=== PATIENT | female | born 1955 | race Caucasian/White ===

== ENCOUNTER → 2020-05-18 13:47 | Outpatient (BNVA) | payer MEDICARE, OTHER, SELFPAY | PROVIDERS: PCP Internal Medicine; Visit Provider Internal Medicine | DX: J30.9 Allergic rhinitis, unspecified (principal); J44.9 Chronic obstructive pulmonary disease, unspecified | CPT/HCPCS: 99212 ==

== ENCOUNTER → 2020-11-21 12:57 | Outpatient (BNVA) | payer MEDICARE, OTHER, SELFPAY | PROVIDERS: PCP Physician Assistant; Visit Provider Internal Medicine | DX: J45.909 Unspecified asthma, uncomplicated (principal) | CPT/HCPCS: 99212 ==

== ENCOUNTER → 2021-05-24 13:09 | Outpatient (BNVA) | payer MEDICARE, OTHER, SELFPAY | PROVIDERS: PCP Internal Medicine; Visit Provider Internal Medicine | DX: J45.909 Unspecified asthma, uncomplicated (principal) | CPT/HCPCS: 94010; 99212 ==

== ENCOUNTER 2021-09-28 15:56 | Emergency (ER) | payer MEDICARE, OTHER, SELFPAY ==
--- NOTE | ~2021-09-28 | XR_ITS ---
EXAMINATION: XR CHEST CLINICAL INFORMATION: Chest pain. COMPARISON: 03/24/2018 chest radiograph. TECHNIQUE: Frontal view of the chest was obtained. FINDINGS: No significant abnormality is noted involving the heart, lungs, mediastinum, bony thorax or soft tissues. XR/XR chest 1V IMPRESSION: No acute cardiopulmonary process.
[2021-09-28 16:02] VITALS: BP 167/105; PULSE 94; RESP 20; TEMP 36.6; O2SAT 98; BMI 24.9
--- NOTE | 2021-09-28 16:04 | ECG_ITS ---
Test Reason : cp/upper abdminal pain Blood Pressure : / mmHG Vent. Rate : 095 BPM Atrial Rate : 095 BPM P-R Int : 178 ms QRS Dur : 088 ms QT Int : 354 ms P-R-T Axes : 056 033 030 degrees QTc Int : 444 ms Normal sinus rhythm Possible Left atrial enlargement Nonspecific ST abnormality Abnormal ECG When compared with ECG of 24-MAR-2018 17:07, No significant change was found Referred By: Generic ED Physician Electronically Signed By:ALEJA SALEH MD
[2021-09-28 16:17] LABS: Hematocrit 41.8 % (37.0-47.0); Hemoglobin 14.4 g/dl (12.0-16.0); Mean Corpuscular HGB Conc 34.4 g/dl (31.0-35.0); Mean Corpuscular Hemoglobin 30.1 pg (27.0-33.0); Mean Corpuscular Volume 87.4 fL (80.0-98.0); Mean Platelet Volume 9.8 fL (9.4-12.3); Platelet Count 309 X10*3/uL (160-400); Red Blood Count 4.78 X10*6/uL (4.20-5.50); Red Cell Distribution Width 12.7 % (11.0-16.0); White Blood Count 8.6 X10*3/uL (4.8-10.8)
[2021-09-28 16:34] LABS: COVID-19 Test Negative (Negative)
[2021-09-28 16:37] LABS: Anion Gap 17 (12-20); Blood Urea Nitrogen 11 mg/dL (9-16); Calcium 9.5 mg/dL (8.4-10.2); Carbon Dioxide 25 mmol/L (22-29); Chloride 96 mmol/L (96-108); Creatinine Clr Calc Pharmacy 73.8; Estimated Glomerular Filt Rate > 60; Glucose Random 116 mg/dL (60-115); Potassium 3.8 mmol/L (3.3-5.1); Sodium 134 mmol/L (135-145)
[2021-09-28 16:40] LABS: Troponin-I High Sensitivity 549.6 ng/L (<3.5-17.0)
--- NOTE | 2021-09-28 16:54 | ED.GENADULT ---
HPI - General Adult General Chief complaint: Chest Pain Stated complaint: back/neck pain Time Seen by Provider: 09/28/21 16:43 Source: patient Limitations: no limitations History of Present Illness HPI narrative: This is a 65-year-old female with history of hypertension who had been [place] [employer], was driving home, did not feel well had onset of substernal chest pain with pain also on the left side of her neck, left shoulder left upper arm. The patient did have nausea and sweats associated with. She denies shortness of breath. She went home and noted that her blood pressure was elevated, and decided to come to the ED. she does have a family history of coronary artery disease. She denies hypercholesterolemia, tobacco use, diabetes Related Data Home Medications Medication Instructions Recorded Confirmed albuterol sulfate 90 mcg/actuation 2 puff INHALATION Q6H PRN 05/18/20 aerosol inhaler betamethasone dipropionate 0.05 % appl TOPICAL BID 11/21/20 topical cream clonazepam 0.5 mg tablet 0.5 mg PO DAILY PRN 11/21/20 cyclosporine 0.05 % eye drops in a 1 drp OPHTHALMIC (EYE) BID 11/21/20 dropperette hydrochlorothiazide 25 mg tablet 25 mg PO DAILY 11/21/20 levothyroxine 88 mcg tablet 88 mcg PO DAILY 11/21/20 losartan 50 mg tablet 50 mg PO DAILY 11/21/20 venlafaxine 150 mg 300 mg PO DAILY 11/21/20 capsule,extended release 24 hr fluticasone propionate 50 spray INTRANASAL 05/24/21 mcg/actuation nasal spray,suspension meloxicam 15 mg tablet 15 mg PO DAILY 05/24/21 omeprazole 20 mg capsule,delayed 20 mg PO DAILY 05/24/21 release Previous Rx's Medication Instructions Recorded Symbicort 80 mcg-4.5 mcg/actuation 2 puff PO BID #10.2 g NS 05/22/21 HFA aerosol inhaler (budesonide-formoterol) Allergies Allergy/AdvReac Type Severity Reaction Status Date / Time amoxicillin [Augmentin] Allergy Severe Vomitting Verified 05/24/21 13:21 clavulanic acid [Augmentin] Allergy Severe Vomitting Verified 05/24/21 13:21 Sulfa (Sulfonamide Allergy Intermediate HIVES Verified 05/24/21 13:21 Antibiotics) [SULFA (SULFONAMIDE ANTIBIOTICS)] Review of Systems Review of Systems: Yes all other systems are reviewed and are negative Constitutional: Constitutional: Reports as per HPI and Denies fever(s) Comments: Sweats Eyes: Eyes: Reports as per HPI and Reports no additional eye complaints ENT: Reports system reviewed and no additional complaints, except as documented, Reports as per HPI, Denies nasal congestion, Denies nasal discharge and Denies sore throat Cardiovascular: Cardiovascular: Reports as per HPI, Reports chest pain and Denies dyspnea Respiratory: Respiratory: Reports as per HPI, Denies cough and Denies dyspnea Gastrointestinal: Gastrointestinal: Reports as per HPI, Denies abdominal pain, Denies diarrhea, Reports nausea and Denies vomiting Genitourinary: Genitourinary: Reports as per HPI, Denies hematuria, Denies urinary frequency and Denies dysuria Musculoskeletal: Musculoskeletal: Reports no additional musculoskeletal complaints and Denies numbness Comments: Neck, left shoulder, left upper arm pain Integumentary/Breasts: Skin/Breast: Reports as per HPI and Denies rash Neurologic: Reports as per HPI, Denies focal weakness and Denies numbness Psychiatric: Psychiatric: Reports no additional psychiatric complaints and Reports as per HPI Endocrine: Endocrine: Reports no additional endocrine complaints and Reports as per HPI Hematologic/Lymphatic: Hematologic/Lymphatic: Reports no additional hematologic/lymphatic complaints, Reports as per HPI and Reports other (No peripheral edema) [facility] Past Medical History Medical History Allergic rhinitis Asthma COPD (chronic obstructive pulmonary disease) Social History Social History Advance Directives: No Advance Directives Information Provided: No Physical Exam ED Vital Signs: Vital Signs - 24 hr 09/28/21 16:02 09/28/21 16:59 09/28/21 17:14 Temperature 97.8 F Pulse Rate 94 97 94 Respiratory Rate 20 14 Blood Pressure 167/105 H 157/86 H 157/86 H Pulse Oximetry 98 97 09/28/21 17:24 09/28/21 17:36 Temperature Pulse Rate 96 90 Respiratory Rate 18 Blood Pressure 134/85 150/87 H Pulse Oximetry 96 BMI result Body Mass Index 24.9 Medical Decision Making MDM Narrative Medical decision making narrative: Patient with chest pain radiating to her left neck, shoulder, upper arm, with associated nausea and sweats, and overall feeling unwell. EKG showed concerning findings consistent with acute coronary syndrome. Initial troponin was positive at 549. Patient was treated with aspirin, Plavix, heparin bolus, nitroglycerin sublingual. The patient had relief of her pain almost dysuria before the nitroglycerin. Patient is being started on low-dose nitroglycerin drip and will be transferred [facility]. Case was discussed with Dr. Augustine of cardiology at [facility] to recommended transfer to the CCU for repeat evaluation. Patient was not felt to meet STEMI criteria but will need cardiac catheterization. Critical care time for this life-threatening illness exclusive of all other billable procedures was approximately 35 minutes including initial evaluation of the patient, ordering tests, x-ray interpretation, EKG interpretation, medical consultation, documentation, reevaluation. Lab Data Lab results reviewed: Yes I reviewed the patient's lab results. Result diagrams: 09/28/21 16:11 09/28/21 16:11 Labs: Lab Results 09/28/21 09/28/21 09/28/21 Range/Units 16:11 16:11 16:11 WBC 8.6 (4.8-10.8) X10*3/uL RBC 4.78 (4.20-5.50) X10*6/uL Hgb 14.4 (12.0-16.0) g/dl Hct 41.8 (37.0-47.0) % MCV 87.4 (80.0-98.0) fL MCH 30.1 (27.0-33.0) pg MCHC 34.4 (31.0-35.0) g/dl RDW 12.7 (11.0-16.0) % Plt Count 309 (160-400) X10*3/uL MPV 9.8 (9.4-12.3) fL Absolute Nucleated RBC 0.000 (0.0-0.012) X10*3/uL Nucleated RBC % (auto) 0.0 (0.0-0.2) /100WBC Sodium 134 L (135-145) mmol/L Potassium 3.8 (3.3-5.1) mmol/L Chloride 96 (96-108) mmol/L Carbon Dioxide 25 (22-29) mmol/L Anion Gap 17 (12-20) BUN 11 (9-16) mg/dL Creatinine 0.70 (0.5-1.4) mg/dL Estim Creat Clear Calc 73.8 Estimated GFR > 60 Random Glucose 116 H (60-115) mg/dL Calcium 9.5 (8.4-10.2) mg/dL Troponin I High Sens 549.6 H* (<3.5-17.0) ng/L COVID-19 (NANCY) (Negative) COVID-19 [employer] 09/28/21 Range/Units 16:12 WBC (4.8-10.8) X10*3/uL RBC (4.20-5.50) X10*6/uL Hgb (12.0-16.0) g/dl Hct (37.0-47.0) % MCV (80.0-98.0) fL MCH (27.0-33.0) pg MCHC (31.0-35.0) g/dl RDW (11.0-16.0) % Plt Count (160-400) X10*3/uL MPV (9.4-12.3) fL Absolute Nucleated RBC (0.0-0.012) X10*3/uL Nucleated RBC % (auto) (0.0-0.2) /100WBC Sodium (135-145) mmol/L Potassium (3.3-5.1) mmol/L Chloride (96-108) mmol/L Carbon Dioxide (22-29) mmol/L Anion Gap (12-20) BUN (9-16) mg/dL Creatinine (0.5-1.4) mg/dL Estim Creat Clear Calc Estimated GFR Random Glucose (60-115) mg/dL Calcium (8.4-10.2) mg/dL Troponin I High Sens (<3.5-17.0) ng/L COVID-19 (NANCY) Negative (Negative) COVID-19 Clin Com See Note Imaging Data Chest x-ray: Radiologist's impression: FINDINGS: No significant abnormality is noted involving the heart, lungs, mediastinum, bony thorax or soft tissues. ECG Data Attestation: I personally reviewed and interpreted this ECG as follows: Interpretation: Sinus rhythm with a rate of 95. ST elevation in lead AVR and V1. ST depression in lead V5 V6 to 3 in AVF. Normal QRS axis. No ectopy. Discharge Plan Discharge Clinical Impression: ACS (acute coronary syndrome), Acute non-ST elevation myocardial infarction (NSTEMI) Patient Disposition: Xfer Acute Care Hospital Transfer Details: [facility] CCU Prescriptions: No Action budesonide-formoterol [Symbicort] 80-4.5 mcg/actuation HFA aerosol inhaler 2 puff PO BID Qty: 10.2 3RF albuterol sulfate 90 mcg/actuation HFA aerosol inhaler 2 puff inhalation Q6H PRN0RF venlafaxine 150 mg capsule,extended release 24hr 300 mg PO DAILY 0RF clonazepam 0.5 mg tablet 0.5 mg PO DAILY PRN (Reason: anxiety) 0RF hydrochlorothiazide 25 mg tablet 25 mg PO DAILY 0RF levothyroxine 88 mcg tablet 88 mcg PO DAILY 0RF losartan 50 mg tablet 50 mg PO DAILY 0RF betamethasone dipropionate 0.05 % cream topical BID 0RF Restasis 0.05 % dropperette 1 drp ophthalmic (eye) BID 0RF meloxicam 15 mg tablet 15 mg PO DAILY 0RF omeprazole 20 mg capsule,delayed release(DR/EC) 20 mg PO DAILY 0RF fluticasone propionate 50 mcg/actuation spray,suspension intranasal 0RF
[2021-09-28] MEDS: Aspirin 81 MG TAB.CHEW 324 MG PO (16:58)
[2021-09-28] MEDS: Heparin Sodium,Porcine 5,000 UNIT/ML VIAL 4000 UNIT IVPUSH (16:58)
[2021-09-28] MEDS: Clopidogrel Bisulfate 300 MG TABLET 600 MG PO (16:58)
[2021-09-28] MEDS: Metoprolol Tartrate 25 MG TABLET PO (16:58)
[2021-09-28 16:59] VITALS: BP 157/86; PULSE 97; RESP 14; O2SAT 97
[2021-09-28] MEDS: 0.9 % Sodium Chloride 500 ML 999 ML IV (16:59)
[2021-09-28 17:14] VITALS: BP 157/86; PULSE 94
[2021-09-28] MEDS: Nitroglycerin 0.4 MG TAB.SUBL SUBLINGUAL (17:14)
[2021-09-28 17:24] VITALS: BP 134/85; PULSE 96; RESP 18; O2SAT 96
[2021-09-28 17:36] VITALS: BP 150/87; PULSE 90
[2021-09-28] MEDS: Nitroglycerin/D5W 100 MG/250 ML INFUS..BTL IVCONT (17:36)
--- NOTE | 2021-09-28 17:43 | PC.NURSE ---
report given to new at [facility]
[2021-09-28 18:09] LABS: INTERNATIONAL NORM RATIO 1.2 (0.9-1.1); Prothrombin Time 13.8 SEC (9.9-13.0)
[2021-09-28 18:26] VITALS: BP 133/70; PULSE 68; RESP 14; O2SAT 98
[2021-09-28 18:31] LABS: Partial Thromboplastin Time > 200.0 SEC (24.1-38.0)
== END 2021-09-28 18:35 | disposition short-term general hospital (02) ==
PROVIDERS: Emergency Provider Emergency Medicine; PCP Internal Medicine
DX: I21.4 Non-ST elevation (NSTEMI) myocardial infarction (principal); I24.9 Acute ischemic heart disease, unspecified; I10 Essential (primary) hypertension; J44.9 Chronic obstructive pulmonary disease, unspecified; Z20.822 Contact with and (suspected) exposure to COVID-19
CPT/HCPCS: 36415; 71045; 80048; 84484; 85027; 85610; 85730; 87635; 93005; 96365; 96375; 99285

== ENCOUNTER → 2021-11-23 13:16 | Outpatient (BNVA) | payer MEDICARE, OTHER, SELFPAY | PROVIDERS: PCP Internal Medicine; Visit Provider Internal Medicine | DX: J44.9 Chronic obstructive pulmonary disease, unspecified (principal); J45.909 Unspecified asthma, uncomplicated | CPT/HCPCS: 99212 ==

== ENCOUNTER → 2022-05-22 13:35 | Outpatient (BNVA) | payer MEDICARE, OTHER, SELFPAY | PROVIDERS: PCP Nurse Practitioner; Visit Provider Internal Medicine | DX: J44.9 Chronic obstructive pulmonary disease, unspecified (principal); J45.909 Unspecified asthma, uncomplicated; J30.9 Allergic rhinitis, unspecified | CPT/HCPCS: 99212 ==

== ENCOUNTER 2022-11-22 13:31 | Outpatient (AMB) | payer MEDICARE, OTHER, SELFPAY ==
[2022-11-22 13:46] VITALS: BP 128/70; PULSE 84; O2SAT 97; BMI 24.6
--- NOTE | 2022-11-22 13:46 | MHC.OFFVIS ---
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 Allergies amoxicillin [Augmentin] Allergy (Severe, Verified 11/22/22 13:50) Vomitting clavulanic acid [Augmentin] Allergy (Severe, Verified 11/22/22 13:50) Vomitting Sulfa (Sulfonamide Antibiotics) [SULFA (SULFONAMIDE ANTIBIOTICS)] Allergy (Intermediate, Verified 11/22/22 13:50) HIVES Medication List - Last Reconciled 11/22/22 by Ana Fernández MD albuterol sulfate 90 mcg/actuation 2 puffs inhalation Q6H PRN alendronate 70 mg PO QWEEK betamethasone dipropionate 0.05% appl topical BID carvedilol 6.25 mg PO BID clonazepam 0.5 mg PO DAILY PRN cyclosporine 0.05% 1 drp ophthalmic (eye) BID fluticasone propionate 50 mcg/actuation sprays intranasal levothyroxine 88 mcg PO DAILY losartan 50 mg PO DAILY meloxicam 15 mg PO DAILY omeprazole 20 mg PO DAILY Symbicort 80-4.5 mcg/actuation (budesonide-formoterol) 2 puffs PO BID 90 days NS venlafaxine ER 300 mg PO DAILY Do you need a note to return to daycare/school/sports/work: No HPI Asthma follow-up HPI Details 67 YEARS OLD VERY PLEASANT FEMALE IS HERE FOR 6 MONTHS FOLLOW-UP FOR HER BRONCHIAL. ASTHMA AND ALLERGIC RHINITIS OVERALL HAS BEEN VERY WELL AND STABLE EXCEPT FOR MILD INCREASE IN NASAL CONGESTION AND POSTNASAL DISCHARGE, RELATED TO HEART WEATHER AND ALSO OUTSIDE ALLERGIES. SHE HAS VERY. LITTLE COUGH OR WHEEZING STATES THAT HER PEAK FLOWS OF OR USUALLY IN THE YELLOW RANGE. SHE REMAINS VERY ACTIVE AND DENIES ANY SHORTNESS OF BREATH ON EXERTION. [facility] Medical History Allergic rhinitis Asthma COPD (chronic obstructive pulmonary disease) Social History Patient Tobacco Use Status: Former Tobacco user Years Smoked: 5 Review of Systems Const All systems reviewed & are unremarkable except as noted in HPI and below Eyes Reports no additional complaints ENT Reports nasal congestion (Only mild intermittent) Card Denies chest pain, Denies irregular heart rhythm and Denies leg edema Resp Reports as per HPI GI Reports heartburn (Sent GERD) Reports no additional complaints Musc Reports no additional complaints Skin/Breast Reports system reviewed and no additional complaints, except as documented Neuro Reports no additional complaints Psych Reports no additional complaints Physical Exam Vital Signs: Last Vital Signs Pulse 84 11/22/22 13:46 BP 128/70 11/22/22 13:46 Pulse Ox 97 11/22/22 13:46 Oxygen Delivery Method Room Air 11/22/22 13:46 BMI result Body Mass Index 24.6 Const General: healthy appearing and comfortable Orientation/consciousness: patient oriented x3 HEENT Head: Yes normal to inspection General nose exam: No nasal polyps present and No nasal discharge present Face and sinus: Yes sinuses nontender Mouth: oropharynx normal Throat: Yes posterior oropharynx normal Eyes General: appearance normal, both eyes and all related structures Neck Neck: Yes normal visual inspection, Yes no lymphadenopathy, Yes trachea midline and Yes no JVD Thyroid: Thyroid normal Chest Chest palpation & inspection: normal inspection of the chest, normal palpation of entire chest wall and no tenderness Resp Other: Percussion note resonant, has good and equal breath sounds on both sides. No wheezes or rhonchi. Cardio Palpation: normal PMI Rate: regular rate Rhythm: regular rhythm Heart sounds: no gallops and no murmurs Peripheral pulses: Peripheral pulses 2+ throughout GI Palpation (GI): Soft to palpation, nontender, No hepatosplenomegaly present and no masses Auscultation: normal bowel sounds Back/Spine/Pelvis Thoracic/Lumbar Spine: thoracic and lumbar spine normal to inspection Skin General skin exam: no rashes or lesions noted Neuro General: patient oriented x3 and no focal motor deficits Cranial nerves: Yes CN's II-XII intact bilaterally Extrem General: Yes normal to inspection, Yes no clubbing, cyanosis or edema and Yes no calf tenderness Psych Appearance: grossly normal and well kempt Speech and movement: Normal speech and movement present Results Reviewed Results Reviewed: PEAK FLOW IS 200 L. Assessment & Plan Assessment & Plan (1) Asthma: Comment: MILD INTERMITTENT , WELL CONTROLLED. TX CONT. SYMBICORT 80/4.5 2 PUFFS BID. USE REGULARLY AND ALBUTEROL HFA 2 PUFFS Q4-6 HRS PRN WHEN OUTDOORS CHECK PEAK FLOWS AT LEAST TWICE A WEAK , IF PEAK FLOW READING REMAINS BELOW 200, MAY INCREASE SYMBICORT TO 160/4.5 2 PUFFS BID . Code(s): J45.909 - Unspecified asthma, uncomplicated (2) COPD (chronic obstructive pulmonary disease): Comment: PATIENT DOES HAVE MILD TO MODERATE DEGREE OF CHRONIC OBSTRUCTIVE AIRWAY DISORDER/ ASTHMA, AND IT REMAINS WELL CONTROLLED. TX: NOTED UNDER ASTHMA. Code(s): J44.9 - Chronic obstructive pulmonary disease, unspecified (3) Allergic rhinitis: Comment: Very Well Controlled AT THIS TIME. NO MEDS NEEDED. MAY USE FLONASE NASAL SPRAY , ONLY PRN . Code(s): J30.9 - Allergic rhinitis, unspecified Coding Level of Care Code Est Pt Level 3 (36973) Diagnoses Asthma J45.909 COPD (chronic obstructive pulmonary disease) J44.9 Allergic rhinitis J30.9
== END 2022-11-22 14:02 | disposition home or self-care (01) ==
PROVIDERS: PCP Nurse Practitioner; Visit Provider Internal Medicine
DX: J45.909 Unspecified asthma, uncomplicated (principal)
CPT/HCPCS: 99213

== ENCOUNTER → 2022-11-22 13:31 | Outpatient (BNVA) | payer MEDICARE, OTHER, SELFPAY | PROVIDERS: PCP Nurse Practitioner; Visit Provider Internal Medicine | DX: J44.9 Chronic obstructive pulmonary disease, unspecified (principal); J45.20 Mild intermittent asthma, uncomplicated; Z87.891 Personal history of nicotine dependence | CPT/HCPCS: 99212 ==

== ENCOUNTER 2023-05-13 08:47 | Outpatient (AMB) | payer MEDICARE, OTHER, SELFPAY ==
[2023-05-13 08:54] VITALS: BP 140/74; PULSE 74; BMI 23.5
--- NOTE | 2023-05-13 08:54 | MHC.OFFVIS ---
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 Allergies amoxicillin [Augmentin] Allergy (Severe, Verified 11/22/22 13:50) Vomitting clavulanic acid [Augmentin] Allergy (Severe, Verified 11/22/22 13:50) Vomitting Sulfa (Sulfonamide Antibiotics) [SULFA (SULFONAMIDE ANTIBIOTICS)] Allergy (Intermediate, Verified 11/22/22 13:50) HIVES Medication List - Last Reconciled 05/13/23 by Remigio Whitfield MD albuterol sulfate 90 mcg/actuation 2 puffs inhalation Q6H PRN alendronate 70 mg PO QWEEK betamethasone dipropionate 0.05% appl topical BID carvedilol 25 mg PO BID levothyroxine 88 mcg PO DAILY losartan 100 mg PO DAILY omeprazole 20 mg PO DAILY spironolactone 25 mg PO DAILY Symbicort 80-4.5 mcg/actuation (budesonide-formoterol) 2 puffs PO BID 90 days NS venlafaxine ER 300 mg PO DAILY HPI HPI Comments History of Present Illness Details Thank you for referring Estefania in cardiology consultation today for management of suspected stress-induced cardiomyopathy AKA takotsubo cardiomyopathy. Last September while she was at the [facility] she got very stressed because of the environment and that while she was driving back she started experiencing symptoms of left chest discomfort radiating to not left arm and felt anxious and stressed and came to the emergency room. In the [facility] was noted to have diffuse mild ST changes and 1st troponin of about 550. She was then started on nitro drip and was transferred to [facility] for acute cardiac catheterization. She underwent cardiac catheterization on 09/29/2021 with normal coronary arteries with normal LV filling pressures, echocardiogram showing regional wall motion abnormality although not in a typical pattern with depressed LV ejection fraction. She says subsequently she was released home without much information. She has not had any recurrent symptoms. She continues to exercise and maintain active lifestyle. She is longstanding history of hypertension and has been treated with multiple medications. She is currently on carvedilol, losartan and spironolactone. Generally blood pressure is well controlled. She says her last LDL was 104 mg/dL. She is concerned about her cardiovascular risk given her father's history of premature coronary artery disease. [facility] Medical History HTN (hypertension) Asthma COPD (chronic obstructive pulmonary disease) Allergic rhinitis Social History Patient Tobacco Use Status: Former Tobacco user Years Smoked: 5 Review of Systems Const Denies chills, Denies daytime sleepiness, Denies fatigue, Denies fever(s), Denies frequent falls, Denies poor appetite, Denies snoring, Denies stops breathing during sleep, Denies weakness, Denies weight gain and Denies weight loss Eyes Denies loss of vision ENT Denies dizziness and Denies hearing loss Card Denies chest pain, Denies claudication, Denies leg edema, Denies lightheadedness, Denies palpitations, Denies dyspnea, Denies dyspnea on exertion and Denies orthopnea Resp Denies cough, Denies excessive phlegm production, Denies dyspnea, Denies dyspnea on exertion, Denies snoring and Denies wheezing GI Denies abdominal pain, Denies hematochezia, Denies change in bowel habits, Denies nausea and Denies vomiting Denies urinary frequency and Denies dysuria Musc Denies arthralgias, Denies muscle weakness, Denies numbness and Denies other (frequent falls) Skin/Breast Denies nail changes and Denies rash Neuro Denies Abnormal speech present, Denies dizziness, Denies frequent falls, Denies loss of vision, Denies memory loss, Denies numbness and Denies weakness Psych Denies depression and Denies memory loss Endo Denies fatigue and Denies palpitations Carlos/Lymph Reports easy bruising and Reports other (anemia) Aller/Immun Denies wheezing Physical Exam Vital Signs: Last Vital Signs Pulse 74 05/13/23 08:54 BP 140/74 H 05/13/23 08:54 BMI result Body Mass Index 23.5 Const General: cooperative, comfortable, no acute distress, well developed, alert, awake, Physically active, anxious and well groomed Nutritional Appearance: average body habitus and well nourished Orientation/consciousness: patient oriented x3 Limitations: no limitations HEENT Head: Yes normocephalic and Yes atraumatic Neck Neck: Yes trachea midline, Yes supple and Yes no JVD Resp Effort & Inspection: normal respiratory effort Auscultation: clear to auscultation bilaterally Cardio Jugular venous distension: no JVD Palpation: normal PMI Rate: regular rate Rhythm: regular rhythm Heart sounds: S1 normal heart sound present, S2 normal heart sound present, no click, no gallops, no murmurs and no rubs GI Auscultation: normal bowel sounds Skin General skin exam: no rashes or lesions noted Neuro General: patient oriented x3 and no focal motor deficits Speech: No Abnormal speech present Extrem General: Yes no clubbing, cyanosis or edema Office Procedures EKG Details: EKG shows normal sinus rhythm with normal EKG [id number], Complete Assessment & Plan Assessment & Plan (1) Takotsubo cardiomyopathy: Comment: September 2021 patient present with symptoms consistent with acute coronary syndrome and subsequently underwent a cardiac catheterization which showed normal coronary, echocardiogram showing regional wall motion abnormality in the pattern of stress-induced cardiomyopathy Code(s): I51.81 - Takotsubo syndrome Plan: Patient with syndrome consistent with stress-induced cardiomyopathy AK takotsubo cardiomyopathy although repeat echocardiogram to evaluate for resolution of LV systolic dysfunction was not performed to confirm the diagnosis completely. Will schedule an echocardiogram near future to assess for the same. If LV systolic function has completely normalized this would confirmed a diagnose of stress-induced cardiomyopathy. Discussed with her about usually good prognosis associated with stress-induced cardiomyopathy. Pathophysiology and mechanism of development of stress-induced cardiomyopathy was discussed. We discussed about aggressively pursuing stress mitigation strategies. Participating some behavior modification was discussed with her. She understands agrees. She is on both carvedilol losartan which have shown to reduce recurrence of stress-induced cardiomyopathy and continue the same. Further risk of recurrence was discussed. She understands it well. (2) HTN (hypertension): Code(s): I10 - Essential (primary) hypertension Plan: Longstanding hypertension which is currently well optimized. Advise to continue current therapy. Importance of good blood pressure control was discussed. Low-salt diet was discussed. Continue current therapy. Target goal blood pressure less than 130/84. She is currently participate in regular physical activity encouraged her to continue to do so. Target goal LDL less than 100 mg/dL as per ASCOT trial. Will follow up in the clinic in 1 year's time, sooner p.r.n.. Thank you for allowing me to partake in the care Coding Level of Care Code New Pt Level 4 (65068) Diagnoses Takotsubo cardiomyopathy I51.81 HTN (hypertension) I10 CPT Codes EKG - CPT: [id number], Complete ([id number])
== END 2023-05-13 09:23 | disposition home or self-care (01) ==
PROVIDERS: PCP Nurse Practitioner; Visit Provider Internal Medicine Cardiovascular Disease
DX: I51.81 Takotsubo syndrome (principal); I10 Essential (primary) hypertension
CPT/HCPCS: 93010; 99214

== ENCOUNTER → 2023-05-13 08:47 | Outpatient (BNVA) | payer MEDICARE, OTHER, SELFPAY | PROVIDERS: PCP Nurse Practitioner; Visit Provider Internal Medicine Cardiovascular Disease | DX: I51.81 Takotsubo syndrome (principal); I10 Essential (primary) hypertension | CPT/HCPCS: 93005; 99212 ==

== ENCOUNTER 2023-07-22 10:18 | Outpatient (AMB) | payer MEDICARE, OTHER, SELFPAY ==
[2023-07-22 10:22] VITALS: BP 102/60; PULSE 76; O2SAT 98; BMI 24.0
--- NOTE | 2023-07-22 10:22 | A.OFFVIS_ITS ---
Intake Vital Signs 07/22/23 10:22 Height 5 ft 4 in Weight 139 lb 15.896 oz BMI 24.0 BP 102/60 Blood Pressure Location Lt brachial Position Sitting Pulse 76 Pulse Source Pulse Oximeter Pulse Oximetry (%) 98 Oxygen Delivery Method Room Air Intake Visit Reasons: Asthma follow-up Intake Note: pt is here for follow up and is now on Dupixent monthly dby Derm. she is not seen much difference with breathing but it is helping her skin. 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: No Allergies amoxicillin [Augmentin] Allergy (Severe, Verified 07/22/23 10:36) Vomitting clavulanic acid [Augmentin] Allergy (Severe, Verified 07/22/23 10:36) Vomitting Sulfa (Sulfonamide Antibiotics) [SULFA (SULFONAMIDE ANTIBIOTICS)] Allergy (Intermediate, Verified 07/22/23 10:36) HIVES Medication List - Last Reconciled 07/22/23 by Ana Fernández MD albuterol sulfate 90 mcg/actuation 2 puffs inhalation Q6H PRN alendronate 70 mg PO QWEEK betamethasone dipropionate 0.05% appl topical BID carvedilol 25 mg PO BID dupilumab (Dupixent) 300 mg subcut Q4W fluticasone furoate-vilanterol 100-25 mcg/dose (Breo Ellipta) 1 inh inhalation DAILY 30 days levothyroxine 88 mcg PO DAILY losartan 100 mg PO DAILY omeprazole 20 mg PO DAILY spironolactone 25 mg PO DAILY venlafaxine ER 300 mg PO DAILY Do you need a note to return to daycare/school/sports/work: No HPI Asthma follow-up HPI Details 67 YEARS OLD VERY PLEASANT FEMALE IS HER E FOR 6 MONTHS FOLLOW-UP FOR HER BRONCHIAL ASTHMA. SYMBICORT WAS SWITCHED TO BREO-100-25 1 INHALATION DAILY. IT SHOULD BE NOTED THAT SHE IS ALSO ON DUPIXENT FOR TREATMENT OF HER SKIN CONDITION. A BREATHING HAS BEEN GOOD WITHOUT ANY ACUTE EXACERBATION. SOME DAYS SHE TRIES TO GO WITHOUT USING BREO AND DOES WELL. SHE HAS ONLY MILD INTERMITTENT NASAL CONGESTION WHICH ALSO REMAINS UNDER GOOD CONTROL. PHYSICALLY SHE IS FULLY ACTIVE WITHOUT ANY PROBLEM PFSH Medical History HTN (hypertension) Asthma COPD (chronic obstructive pulmonary disease) Allergic rhinitis Social History Patient Tobacco Use Status: Former Tobacco user Years Smoked: 5 Review of Systems Const All systems reviewed & are unremarkable except as noted in HPI and below Eyes Reports no additional complaints ENT Reports nasal congestion (Only mild intermittent) Card Denies chest pain, Denies irregular heart rhythm and Denies leg edema Resp Reports as per HPI GI Reports heartburn (Sent GERD) Reports no additional complaints Musc Reports no additional complaints Skin/Breast Reports system reviewed and no additional complaints, except as documented Neuro Reports no additional complaints Psych Reports no additional complaints Physical Exam Vital Signs: Last Vital Signs Pulse 76 07/22/23 10:22 BP 102/60 07/22/23 10:22 Pulse Ox 98 07/22/23 10:22 Oxygen Delivery Method Room Air 07/22/23 10:22 BMI result Body Mass Index 24.0 Const General: healthy appearing and comfortable Orientation/consciousness: patient oriented x3 HEENT Head: Yes normal to inspection General nose exam: No nasal polyps present and No nasal discharge present Face and sinus: Yes sinuses nontender Mouth: oropharynx normal Throat: Yes posterior oropharynx normal Eyes General: appearance normal, both eyes and all related structures Neck Neck: Yes normal visual inspection, Yes no lymphadenopathy, Yes trachea midline and Yes no JVD Thyroid: Thyroid normal Chest Chest palpation & inspection: normal inspection of the chest, normal palpation of entire chest wall and no tenderness Resp Other: Percussion note resonant, has good and equal breath sounds on both sides. No wheezes or rhonchi. Cardio Palpation: normal PMI Rate: regular rate Rhythm: regular rhythm Heart sounds: no gallops and no murmurs Peripheral pulses: Peripheral pulses 2+ throughout GI Palpation (GI): Soft to palpation, nontender, No hepatosplenomegaly present and no masses Auscultation: normal bowel sounds Back/Spine/Pelvis Thoracic/Lumbar Spine: thoracic and lumbar spine normal to inspection Skin General skin exam: no rashes or lesions noted Neuro General: patient oriented x3 and no focal motor deficits Cranial nerves: Yes CN's II-XII intact bilaterally Extrem General: Yes normal to inspection, Yes no clubbing, cyanosis or edema and Yes no calf tenderness Psych Appearance: grossly normal and well kempt Speech and movement: Normal speech and movement present Assessment & Plan Assessment & Plan (1) COPD (chronic obstructive pulmonary disease): Comment: PATIENT DOES HAVE MILD TO MODERATE DEGREE OF CHRONIC OBSTRUCTIVE AIRWAY DISORDER/ ASTHMA, AND IT REMAINS WELL CONTROLLED. TX: NOTED UNDER ASTHMA. Code(s): J44.9 - Chronic obstructive pulmonary disease, unspecified Plan: BREO ELLIPTA 100-25 1 INHALATION DAILY . WHEN SYMPTOMS ARE FULLY CONTROLLED SHE COULD TRY GOING WITHOUT IT FOR A FEW DAYS AT A TIME. ALBUTEROL HFA 2 PUFFS Q 4-6 HOURS ONLY P.R.N. (2) Allergic rhinitis: Comment: Very Well Controlled AT THIS TIME. Code(s): J30.9 - Allergic rhinitis, unspecified Plan: FLONASE NASAL SPRAY , ONLY PRN . Coding Level of Care Code Est Pt Level 3 (89080) Diagnoses COPD (chronic obstructive pulmonary disease) J44.9 Allergic rhinitis J30.9
== END 2023-07-22 10:37 | disposition home or self-care (01) ==
PROVIDERS: PCP Nurse Practitioner; Visit Provider Internal Medicine
DX: J44.9 Chronic obstructive pulmonary disease, unspecified (principal); J30.9 Allergic rhinitis, unspecified
CPT/HCPCS: 99213

== ENCOUNTER → 2023-07-22 10:18 | Outpatient (BNVA) | payer MEDICARE, OTHER, SELFPAY | PROVIDERS: PCP Nurse Practitioner; Visit Provider Internal Medicine | DX: J44.9 Chronic obstructive pulmonary disease, unspecified (principal); J30.9 Allergic rhinitis, unspecified | CPT/HCPCS: 99212 ==

== ENCOUNTER 2024-01-30 10:15 | Outpatient (AMB) | payer MEDICARE, OTHER, SELFPAY ==
--- NOTE | 2024-01-30 10:21 | A.OFFVIS_ITS ---
Vital Signs 01/30/24 10:22 Height 5 ft 4 in Weight 137 lb 12.623 oz BMI 23.6 BP 110/60 Blood Pressure Location Lt brachial Position Sitting Pulse 64 Pulse Source Pulse Oximeter Pulse Oximetry (%) 97 Oxygen Delivery Method Room Air Intake Visit Reasons: Asthma follow-up Intake Note: pt is here for follow up and states she states her breathing. Environmental Services Attendant Required: No Allergies amoxicillin [Augmentin] Allergy (Severe, Verified 01/30/24 10:42) Vomitting clavulanic acid [Augmentin] Allergy (Severe, Verified 01/30/24 10:42) Vomitting Sulfa (Sulfonamide Antibiotics) [SULFA (SULFONAMIDE ANTIBIOTICS)] Allergy (Intermediate, Verified 01/30/24 10:42) HIVES Medication List - Last Reconciled 01/30/24 by Ana Fernández MD albuterol sulfate 90 mcg/actuation 2 puffs inhalation Q6H PRN alendronate 70 mg PO QWEEK betamethasone dipropionate 0.05% appl topical BID carvedilol 25 mg PO BID dupilumab (Dupixent) 300 mg subcut Q4W fluticasone furoate-vilanterol 100-25 mcg/dose (Breo Ellipta) 1 inh inhalation DAILY 30 days levothyroxine 88 mcg PO DAILY losartan 100 mg PO DAILY omeprazole 20 mg PO DAILY spironolactone 25 mg PO DAILY venlafaxine ER 300 mg PO DAILY Do you need a note to return to daycare/school/sports/work: No HPI HPI Asthma follow-up: Details: PARMINDER IS 68 YEARS OLD VERY PLEASANT FEMALE BEING FOLLOWED UP FOR ALLERGIC RHINITIS AND BRONCHIAL ASTHMA. SHE IS HERE TODAY FOR HER 6 MONTHS FOLLOW-UP . SHE HARDLY HAS ANY NASAL CONGESTION AND NEED TO USE ANY NASAL SPRAY, OR ANTIHISTAMINICS. BREATHING IS ALSO WELL CONTROLLED AND HAS HAD NO RECURRENCE OF ANY COUGH OR WHEEZING. SHE CONTINUES TO USE BREO 100-25 ONLY 1 INHALATION DAILY AND HAS NOT REQUIRED TO USE ANY RESCUE INHALERS. HE IS BEING TREATED FOR FULMINANT ECZEMA WITH DUPIXENT THERAPY, AND THAT HAS HELPED TO CONTROL HER ALLERGIC RHINITIS AND BRONCHIAL ASTHMA WELL. [facility] Medical History HTN (hypertension) Asthma COPD (chronic obstructive pulmonary disease) Allergic rhinitis Social History Patient Tobacco Use Status: Former Tobacco user Years Smoked: 5 Review of Systems Const All systems reviewed & are unremarkable except as noted in HPI and below Eyes Reports no additional complaints ENT Reports nasal congestion (Only mild intermittent) Card Denies chest pain, Denies irregular heart rhythm and Denies leg edema Resp Reports as per HPI GI Reports heartburn (Sent GERD) Reports no additional complaints Musc Reports no additional complaints Skin/Breast Reports system reviewed and no additional complaints, except as documented Neuro Reports no additional complaints Psych Reports no additional complaints Physical Exam Vital Signs: Last Vital Signs Pulse 64 01/30/24 10:22 BP 110/60 01/30/24 10:22 Pulse Ox 97 01/30/24 10:22 Oxygen Delivery Method Room Air 01/30/24 10:22 BMI result Body Mass Index 23.6 Const General: healthy appearing and comfortable Orientation/consciousness: patient oriented x3 HEENT Head: Yes normal to inspection General nose exam: No nasal polyps present and No nasal discharge present Face and sinus: Yes sinuses nontender Mouth: oropharynx normal Throat: Yes posterior oropharynx normal Eyes General: appearance normal, both eyes and all related structures Neck Neck: Yes normal visual inspection, Yes no lymphadenopathy, Yes trachea midline and Yes no JVD Thyroid: Thyroid normal Chest Chest palpation & inspection: normal inspection of the chest, normal palpation of entire chest wall and no tenderness Resp Other: Percussion note resonant, has good and equal breath sounds on both sides. No wheezes or rhonchi. Cardio Palpation: normal PMI Rate: regular rate Rhythm: regular rhythm Heart sounds: no gallops and no murmurs Peripheral pulses: Peripheral pulses 2+ throughout GI Palpation (GI): Soft to palpation, nontender, No hepatosplenomegaly present and no masses Auscultation: normal bowel sounds Back/Spine/Pelvis Thoracic/Lumbar Spine: thoracic and lumbar spine normal to inspection Skin General skin exam: no rashes or lesions noted Neuro General: patient oriented x3 and no focal motor deficits Cranial nerves: Yes CN's II-XII intact bilaterally Extrem General: Yes normal to inspection, Yes no clubbing, cyanosis or edema and Yes no calf tenderness Psych Appearance: grossly normal and well kempt Speech and movement: Normal speech and movement present Assessment & Plan Assessment & Plan (1) Asthma: Comment: MILD INTERMITTENT , WELL CONTROLLED. Code(s): J45.909 - Unspecified asthma, uncomplicated Category: Medical Plan: BREO 100-25 1 INHALATION DAILY. ADVISE THAT SHE MAY TRY TO GO WITHOUT BREO AND LONG SHE HAS NO COUGH OR WHEEZING , SHE CAN USE BREO ONLY P.R.N. ALBUTEROL HFA 2 PUFFS Q 4-6 HOURS P.R.N. ( HARDLY NEEDS TO USE ) (2) COPD (chronic obstructive pulmonary disease): Comment: PATIENT DOES HAVE MILD TO MODERATE DEGREE OF CHRONIC OBSTRUCTIVE AIRWAY DISORDER/ ASTHMA, AND IT REMAINS WELL CONTROLLED. Code(s): J44.9 - Chronic obstructive pulmonary disease, unspecified Category: Medical Plan: NOTED UNDER ASTHMA (3) Allergic rhinitis: Comment: Very Well Controlled AT THIS TIME. Code(s): J30.9 - Allergic rhinitis, unspecified Category: Medical Plan: NO ACTIVE TREATMENT NEEDED. SHE WILL CONTINUE DUPIXENT THERAPY Coding Level of Care Code Est Pt Level 3 (49052) Diagnoses Asthma J45.909 COPD (chronic obstructive pulmonary disease) J44.9 Allergic rhinitis J30.9
[2024-01-30 10:22] VITALS: BP 110/60; PULSE 64; O2SAT 97; BMI 23.6
== END 2024-01-30 10:50 | disposition home or self-care (01) ==
PROVIDERS: PCP Nurse Practitioner; Visit Provider Internal Medicine
DX: J45.909 Unspecified asthma, uncomplicated (principal); J44.9 Chronic obstructive pulmonary disease, unspecified; J30.9 Allergic rhinitis, unspecified
CPT/HCPCS: 99213

== ENCOUNTER → 2024-01-30 10:15 | Outpatient (BNVA) | payer MEDICARE, OTHER, SELFPAY | PROVIDERS: PCP Nurse Practitioner; Visit Provider Internal Medicine | DX: J45.909 Unspecified asthma, uncomplicated (principal); J44.9 Chronic obstructive pulmonary disease, unspecified | CPT/HCPCS: 99212 ==

== ENCOUNTER 2024-03-03 10:59 | Outpatient (AMB) | payer MEDICARE, OTHER, SELFPAY ==
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
[2024-03-03 11:22] VITALS: BP 124/62; PULSE 100; O2SAT 98; BMI 23.3
== END 2024-03-03 11:48 | disposition home or self-care (01) ==
LOC: HO.RHE 11:00
PROVIDERS: PCP Nurse Practitioner; Visit Provider Student in an Organized Health Care Education/Training Program
DX: M25.50 Pain in unspecified joint (principal)
CPT/HCPCS: 99204

== ENCOUNTER 2024-03-03 10:59 | Outpatient (REF) | payer MEDICARE, OTHER, SELFPAY ==
--- NOTE | ~2024-03-03 | XR_ITS ---
EXAMINATION: XR SHOULDER LEFT CLINICAL INFORMATION: Pain in unspecified joint M25.50. Patient states pain in shoulders and neck for a while. No known injury. COMPARISON: XR Chest 03/24/2018 TECHNIQUE: AP external rotation, Grashey, scapular Y, and axillary views of the left shoulder. FINDINGS: Mild arthrosis of the acromioclavicular joint. Glenohumeral joint normal. Surrounding bone and soft tissues unremarkable. XR/XR shoulder LT min 2V IMPRESSION: Mild arthrosis of the acromioclavicular joint. Electronically signed by: Marc Flores MD 04/19/2024 09:42 AM EST
[2024-03-03 13:39] LABS: MANUAL DIFF FLAG NO
[2024-03-03 14:57] LABS: Appearance Urine Clear; Color Urine Yellow; Glucose Urine UA Negative (Negative); Leukocyte Esterase Urine Negative (Negative); Nitrite Urine Negative (Negative); Specific Gravity - Urine <= 1.005 (1.005-1.025); Urine Blood Negative (Negative); Urine Ketones Negative (Negative); Urine Protein Negative (Neg-Trace)
[2024-03-03 15:04] LABS: Basophils Percent Auto 0.5 % (0-2); Hematocrit 37.6 % (37.0-47.0); Hemoglobin 13.1 g/dl (12.0-16.0); Imm Gran Abs Auto 0.03 X10*3/uL (0.00-0.03); Imm Gran Pct Auto 0.5 % (0.0-0.4); Lymphocytes Absolute Auto 1.3 X10*3/uL (1.2-4.9); Lymphocytes Percent Auto 19.1 % (20-40); Mean Corpuscular HGB Conc 34.8 g/dl (31.0-35.0); Mean Corpuscular Hemoglobin 31.6 pg (27.0-33.0); Mean Corpuscular Volume 90.6 fL (80.0-98.0); Mean Platelet Volume 9.7 fL (9.4-12.3); Monocytes Absolute Auto 0.7 X10*3/uL (0.1-1.2); Monocytes Percent Auto 10.7 % (2-11); Neutrophils Absolute Auto 4.5 x10*3/uL (2.0-8.3); Neutrophils Percent Auto 69.2 % (45-73); Platelet Count 332 X10*3/uL (160-400); Red Blood Count 4.15 X10*6/uL (4.20-5.50); Red Cell Distribution Width 11.9 % (11.0-16.0); White Blood Count 6.5 X10*3/uL (4.8-10.8)
[2024-03-03 15:08] LABS: Bacteria Urine None Seen (None Seen); Hyaline Casts Urine 0-2 /LPF (0-2); RBC Urine 0-2 /HPF (0-2); Squamous Epithelial Cell Urine 0-2 /HPF (0-2); WBC Urine 0-5 /HPF (0-5)
[2024-03-03 15:20] LABS: Alanine Aminotransferase 20 U/L (0-31); Albumin Level 4.3 g/dL (3.5-5.0); Alkaline Phosphatase 90 U/L (39-117); Anion Gap 14 (12-20); Aspartate Amino Transferase 23 U/L (5-31); Bilirubin Total 0.5 mg/dL (0.0-1.0); Blood Urea Nitrogen 9 mg/dL (9-16); C Reactive Protein 3.42 mg/dL (< or = 0.50); Calcium 10.1 mg/dL (8.4-10.2); Carbon Dioxide 25 mmol/L (22-29); Chloride 101 mmol/L (96-108); Estimated Glomerular Filt Rate > 60; Glucose Random 91 mg/dL (60-115); Potassium 4.2 mmol/L (3.3-5.1); Sodium 136 mmol/L (135-145); Total Protein 7.8 g/dL (6.5-8.0)
[2024-03-03 15:30] LABS: Rheumatoid Factor < 13.0 IU/mL (<15.0)
[2024-03-03 15:43] LABS: Erythrocyte Sedimentation Rate 51 MM/HR (0-20)
[2024-03-03 16:21] LABS: Creatinine Urine 42.08 mg/dL; Total Protein Urine Random < 7 mg/dL (<12)
[2024-03-04 08:49] LABS: HBS Num1 1.52 mIU/mL (0-7.99); HBsAGNum1 0.25 S/CO (0.00-0.99); Hepatitis A Antibody IgM 0.14 Index (0-0.79); Hepatitis B Core Antibody Nonreactive (Nonreactive); Hepatitis B Surface Antigen Negative (Negative); ~HepC Num1 0.08 S/CO (0.00-0.79); ~Hepatitis A Antibody IgM Nonreactive (Nonreactive); ~Hepatitis B Surface Antibody NONREACTIVE (Nonreactive); ~Hepatitis C Antibody Nonreactive (Nonreactive)
[2024-03-04 10:04] LABS: Prot Elec - Alpha1 0.3 g/dL (0.2-0.3); Prot Elec - Alpha2 0.8 g/dL (0.5-0.9); Prot Elec - Beta 1 0.4 g/dL (0.4-0.6); Prot Elec - Beta 2 0.4 g/dL (0.2-0.5); Prot Elec - Gamma 1.2 g/dL (0.8-1.7); Prot Elec - Total Protein 7.1 g/dL (6.1-8.1)
[2024-03-04 11:58] LABS: Complement C3 172 mg/dL (83-193)
[2024-03-04 22:07] LABS: IgA 243 mg/dL (70-320); IgG 1364 mg/dL (600-1540); IgM 102 mg/dL (50-300)
[2024-03-05 07:13] LABS: Cyclic Citrullinated Peptide 19 UNITS
[2024-03-05 14:42] LABS: Anti DNA DS Antibody 1 IU/mL; Antibody to SS-A Antigen <1.0 NEG AI (<1.0 NEG); Antibody to SS-B Antigen <1.0 NEG AI (<1.0 NEG); SM/Ribonucleoprotein Ab <1.0 NEG AI (<1.0 NEG); Smith Protein <1.0 NEG AI (<1.0 NEG)
[2024-03-06 05:13] LABS: TS Negative Control Passed; TS Panel A 1; TS Panel B 1; TS Positive Control Passed; TSpotTB Negative (Negative)
[2024-03-06 17:33] LABS: DNAds, Crithidia Antibody Negative (Negative)
[2024-03-09 13:29] LABS: Anti Nuclear Antibody Screen NEGATIVE (NEGATIVE)
[2024-03-13 18:09] LABS: Centromere Protein A Ab <11 SI (<11); Centromere Protein B Ab <11 SI (<11); Fibrillarin Ab <11 SI (<11); PM SCL 100 Ab <11 SI (<11); PM SCL 75 Ab <11 SI (<11); RNA Polymerase III RP11 Ab <11 SI (<11); RNA Polymerase III RP155 Ab <11 SI (<11); SCL-70 Extractable Nuclear Ab <11 SI (<11); Th-To Ab <11 SI (<11); U1 SNRNP RNP 70KD <11 SI (<11); U1 SNRNP RNP A <11 SI (<11); U1 SNRNP RNP C <11 SI (<11)
== END 2024-03-03 11:00 | disposition home or self-care (01) ==
LOC: HO.XRAY 10:59
PROVIDERS: PCP Nurse Practitioner; Visit Provider Student in an Organized Health Care Education/Training Program
DX: M25.50 Pain in unspecified joint (principal); M32.9 Systemic lupus erythematosus, unspecified; Z11.7 Encounter for testing for latent tuberculosis infection; M34.9 Systemic sclerosis, unspecified; M79.10 Myalgia, unspecified site; Z11.59 Encounter for screening for other viral diseases
CPT/HCPCS: 36415; 72050; 73030; 73110; 73130; 80053; 81001; 82550; 82570; 82784; 84156; 84165; 84182; 85025; 85652; 86038; 86140; 86160; 86200; 86225; 86235; 86255; 86334; 86431; 86481; 86704; 86706; 86709; 86803; 87340; 99202

== ENCOUNTER 2024-04-06 11:33 | Outpatient (REF) | payer MEDICARE, OTHER, SELFPAY ==
[2024-04-06 12:26] LABS: MANUAL DIFF FLAG NO
[2024-04-06 12:36] LABS: Basophils Percent Auto 0.3 % (0-2); Hematocrit 32.7 % (37.0-47.0); Hemoglobin 11.4 g/dl (12.0-16.0); Imm Gran Abs Auto 0.02 X10*3/uL (0.00-0.03); Imm Gran Pct Auto 0.3 % (0.0-0.4); Lymphocytes Absolute Auto 1.4 X10*3/uL (1.2-4.9); Lymphocytes Percent Auto 22.9 % (20-40); Mean Corpuscular HGB Conc 34.9 g/dl (31.0-35.0); Mean Corpuscular Hemoglobin 30.2 pg (27.0-33.0); Mean Corpuscular Volume 86.5 fL (80.0-98.0); Mean Platelet Volume 9.4 fL (9.4-12.3); Monocytes Absolute Auto 0.9 X10*3/uL (0.1-1.2); Monocytes Percent Auto 14.2 % (2-11); Neutrophils Absolute Auto 3.8 x10*3/uL (2.0-8.3); Neutrophils Percent Auto 62.3 % (45-73); Platelet Count 412 X10*3/uL (160-400); Red Blood Count 3.78 X10*6/uL (4.20-5.50); Red Cell Distribution Width 11.8 % (11.0-16.0); White Blood Count 6.1 X10*3/uL (4.8-10.8)
[2024-04-06 13:14] LABS: Alanine Aminotransferase 14 U/L (0-31); Albumin Level 3.9 g/dL (3.5-5.0); Alkaline Phosphatase 98 U/L (39-117); Anion Gap 10 (12-20); Aspartate Amino Transferase 18 U/L (5-31); Bilirubin Total 0.3 mg/dL (0.0-1.0); Blood Urea Nitrogen 8 mg/dL (9-16); C Reactive Protein 4.02 mg/dL (< or = 0.50); Calcium 9.7 mg/dL (8.4-10.2); Carbon Dioxide 29 mmol/L (22-29); Chloride 98 mmol/L (96-108); Estimated Glomerular Filt Rate > 60; Glucose Random 104 mg/dL (60-115); Potassium 4.4 mmol/L (3.3-5.1); Sodium 133 mmol/L (135-145); Total Protein 7.4 g/dL (6.5-8.0)
[2024-04-06 13:25] LABS: Erythrocyte Sedimentation Rate 73 MM/HR (0-20)
== END 2024-04-06 11:34 | disposition home or self-care (01) ==
LOC: HO.LAB 11:33
PROVIDERS: PCP Nurse Practitioner; Visit Provider Student in an Organized Health Care Education/Training Program
DX: M12.30 Palindromic rheumatism, unspecified site (principal); M25.50 Pain in unspecified joint; Z79.899 Other long term (current) drug therapy
CPT/HCPCS: 36415; 80053; 85025; 85652; 86140; 99212

== ENCOUNTER 2024-04-06 11:33 | Outpatient (AMB) | payer MEDICARE, OTHER, SELFPAY ==
[2024-04-06 11:41] VITALS: BP 120/66; PULSE 79; O2SAT 100; BMI 22.0
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
== END 2024-04-06 12:07 | disposition home or self-care (01) ==
PROVIDERS: PCP Nurse Practitioner; Visit Provider Student in an Organized Health Care Education/Training Program
DX: M25.50 Pain in unspecified joint (principal); Z79.899 Other long term (current) drug therapy
CPT/HCPCS: 99214

== ENCOUNTER 2024-05-11 08:30 | Outpatient (AMB) | payer MEDICARE, OTHER, SELFPAY ==
[2024-05-11 08:34] VITALS: BP 120/74; PULSE 66; BMI 21.6
--- NOTE | 2024-05-11 08:34 | A.OFFVIS_ITS ---
Vital Signs 05/11/24 08:34 Height 5 ft 4.5 in Weight 127 lb 13.89 oz BMI 21.6 BP 120/74 Blood Pressure Location Lt brachial Position Sitting Pulse 66 Intake Visit Reasons: 1 yr f/up Intake Note: 1 year follow-up with ekg feeling good Grinding Machine Tender Required: No Allergies amoxicillin [Augmentin] Allergy (Severe, Verified 04/06/24 11:43) Vomitting clavulanic acid [Augmentin] Allergy (Severe, Verified 04/06/24 11:43) Vomitting Sulfa (Sulfonamide Antibiotics) [SULFA (SULFONAMIDE ANTIBIOTICS)] Allergy (Intermediate, Verified 04/06/24 11:43) HIVES Medication List - Last Reconciled 05/11/24 by Remigio Whitfield MD albuterol sulfate 90 mcg/actuation 2 puffs inhalation Q6H PRN alendronate 70 mg PO QWEEK carvedilol 25 mg PO BID diatrizoate franklin-diatrizoat sod 66-10 % (Gastrografin) 30 mL PO ONCE dupilumab (Dupixent) 300 mg subcut Q4W fluticasone furoate-vilanterol 100-25 mcg/dose (Breo Ellipta) 1 inh inhalation DAILY 30 days hydroxychloroquine 300 mg (1.5 x 200 mg) PO DAILY levothyroxine 88 mcg PO DAILY losartan 100 mg PO DAILY omeprazole 20 mg PO DAILY spironolactone 25 mg PO DAILY venlafaxine ER 300 mg PO DAILY HPI Comments Details: Estefania comes for follow-up. She has been doing extremely well. She denies any symptoms of exertional chest pain or shortness of breath. No heart failure symptoms. She says her COPD symptoms also well controlled. Blood pressure remains extremely well controlled. She denies any prolonged palpitation irregular heartbeats. No lightheadedness. She was stressed about recent hematologic findings of blasts cells. She is undergoing Hematology workup. [facility] Medical History (Updated 05/11/24 @ 08:55 by Remigio Whitfield MD) Takotsubo cardiomyopathy Breast cancer, right HTN (hypertension) Asthma COPD (chronic obstructive pulmonary disease) Allergic rhinitis Family History Sister No problems noted. Sister Rheumatoid arthritis Scleroderma Daughter Rheumatoid arthritis Social History Patient Tobacco Use Status: Former Tobacco user Years Smoked: 5 Review of Systems Const Denies chills, Denies daytime sleepiness, Denies fatigue, Denies fever(s), Denies frequent falls, Denies poor appetite, Denies snoring, Denies stops breathing during sleep, Denies weakness, Denies weight gain and Denies weight loss Eyes Denies loss of vision ENT Denies dizziness and Denies hearing loss Card Denies chest pain, Denies claudication, Denies leg edema, Denies lightheadedness, Denies palpitations, Denies dyspnea, Denies dyspnea on exertion and Denies orthopnea Resp Denies cough, Denies excessive phlegm production, Denies dyspnea, Denies dyspnea on exertion, Denies snoring and Denies wheezing GI Denies abdominal pain, Denies hematochezia, Denies change in bowel habits, Denies nausea and Denies vomiting Denies urinary frequency and Denies dysuria Musc Denies arthralgias, Denies muscle weakness, Denies numbness and Denies other (frequent falls) Skin/Breast Denies nail changes and Denies rash Neuro Denies Abnormal speech present, Denies dizziness, Denies frequent falls, Denies loss of vision, Denies memory loss, Denies numbness and Denies weakness Psych Denies depression and Denies memory loss Endo Denies fatigue and Denies palpitations Carlos/Lymph Reports easy bruising and Reports other (anemia) Aller/Immun Denies wheezing Physical Exam Vital Signs: Last Vital Signs Pulse 66 05/11/24 08:34 BP 120/74 05/11/24 08:34 BMI result Body Mass Index 21.6 Const General: cooperative, comfortable, no acute distress, well developed, alert, awake, Physically active, anxious and well groomed Nutritional Appearance: average body habitus and well nourished Orientation/consciousness: patient oriented x3 Limitations: no limitations HEENT Head: Yes normocephalic and Yes atraumatic Neck Neck: Yes trachea midline, Yes supple and Yes no JVD Resp Effort & Inspection: normal respiratory effort Auscultation: clear to auscultation bilaterally Cardio Jugular venous distension: no JVD Palpation: normal PMI Rate: regular rate Rhythm: regular rhythm Heart sounds: S1 normal heart sound present, S2 normal heart sound present, no click, no gallops, no murmurs and no rubs GI Auscultation: normal bowel sounds Skin General skin exam: no rashes or lesions noted Neuro General: patient oriented x3 and no focal motor deficits Speech: No Abnormal speech present Extrem General: Yes no clubbing, cyanosis or edema Office Procedures EKG Details: EKG shows normal sinus rhythm nonspecific ST changes [id number], Complete Assessment & Plan Assessment & Plan (1) Takotsubo cardiomyopathy: Comment: September 2021 patient present with symptoms consistent with acute coronary syndrome and subsequently underwent a cardiac catheterization which showed normal coronary, echocardiogram showing regional wall motion abnormality in the pattern of stress-induced cardiomyopathy Code(s): I51.81 - Takotsubo syndrome Category: Medical Plan: History of takotsubo syndrome, has remained suppressed with current medical therapy with beta-kyler and losartan therapy. Importance of stress mitigation strategy was discussed. Continue aggressive blood pressure control. Advised to call me with any new symptoms. She remains at risk for redevelopment of takotsubo cardiomyopathy (2) HTN (hypertension): Code(s): I10 - Essential (primary) hypertension Category: Medical Plan: Hypertension which is extremely well optimized on current therapy with spironolactone, losartan and carvedilol therapy. Continue the same. Low-salt diet was discussed encouraged to maintain activity level as tolerated. Will follow up in the clinic in 2 years time, sooner p.r.n.. Thank you for allowing me to partake in her care Coding Level of Care Code Est Pt Level 4 (07353) Complex EM visit Add On G2211 Diagnoses Takotsubo cardiomyopathy I51.81 HTN (hypertension) I10 CPT Codes EKG - CPT: [id number], Complete ([id number])
== END 2024-05-11 08:52 | disposition home or self-care (01) ==
PROVIDERS: PCP Nurse Practitioner; Visit Provider Internal Medicine Cardiovascular Disease
DX: I51.81 Takotsubo syndrome (principal); I10 Essential (primary) hypertension
CPT/HCPCS: 93010; 99214; G2211

== ENCOUNTER → 2024-05-11 08:30 | Outpatient (BNVA) | payer MEDICARE, OTHER, SELFPAY | PROVIDERS: PCP Nurse Practitioner; Visit Provider Internal Medicine Cardiovascular Disease | DX: I51.81 Takotsubo syndrome (principal); I10 Essential (primary) hypertension | CPT/HCPCS: 93005; 99212 ==

== ENCOUNTER 2024-05-14 09:39 | Outpatient (REF) | payer MEDICARE, OTHER, SELFPAY ==
[2024-05-14 10:07] LABS: MANUAL DIFF FLAG NO
[2024-05-14 10:22] LABS: Basophils Percent Auto 0.2 % (0-2); Hematocrit 34.4 % (37.0-47.0); Hemoglobin 11.5 g/dl (12.0-16.0); Imm Gran Abs Auto 0.02 X10*3/uL (0.00-0.03); Imm Gran Pct Auto 0.3 % (0.0-0.4); Lymphocytes Absolute Auto 1.1 X10*3/uL (1.2-4.9); Lymphocytes Percent Auto 17.6 % (20-40); Mean Corpuscular HGB Conc 33.4 g/dl (31.0-35.0); Mean Corpuscular Hemoglobin 29.2 pg (27.0-33.0); Mean Corpuscular Volume 87.3 fL (80.0-98.0); Mean Platelet Volume 9.9 fL (9.4-12.3); Monocytes Absolute Auto 0.6 X10*3/uL (0.1-1.2); Monocytes Percent Auto 9.7 % (2-11); Neutrophils Absolute Auto 4.5 x10*3/uL (2.0-8.3); Neutrophils Percent Auto 72.2 % (45-73); Platelet Count 396 X10*3/uL (160-400); Red Blood Count 3.94 X10*6/uL (4.20-5.50); Red Cell Distribution Width 12.2 % (11.0-16.0); White Blood Count 6.2 X10*3/uL (4.8-10.8)
[2024-05-14 11:08] LABS: Erythrocyte Sedimentation Rate 43 MM/HR (0-20)
[2024-05-14 11:10] LABS: Alanine Aminotransferase 17 U/L (0-31); Alkaline Phosphatase 99 U/L (39-117); Anion Gap 10 (12-20); Aspartate Amino Transferase 20 U/L (5-31); Bilirubin Total 0.3 mg/dL (0.0-1.0); Blood Urea Nitrogen 7 mg/dL (9-16); C Reactive Protein 1.63 mg/dL (< or = 0.50); Calcium 8.9 mg/dL (8.4-10.2); Carbon Dioxide 27 mmol/L (22-29); Chloride 105 mmol/L (96-108); Estimated Glomerular Filt Rate > 60; Glucose Random 95 mg/dL (60-115); Potassium 4.6 mmol/L (3.3-5.1); Sodium 137 mmol/L (135-145); Total Protein 7.3 g/dL (6.5-8.0)
[2024-05-20 00:03] LABS: HLA B27 Negative (Negative)
== END 2024-05-14 09:40 | disposition home or self-care (01) ==
LOC: HO.LAB 09:39
PROVIDERS: PCP Nurse Practitioner; Visit Provider Student in an Organized Health Care Education/Training Program
DX: M12.30 Palindromic rheumatism, unspecified site (principal); M45.9 Ankylosing spondylitis of unspecified sites in spine
CPT/HCPCS: 36415; 80053; 85025; 85652; 86140; 86812

== ENCOUNTER 2024-07-09 08:23 | Outpatient (AMB) | payer MEDICARE, OTHER, SELFPAY ==
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
[2024-07-09 08:32] VITALS: BP 164/80; PULSE 89; O2SAT 97; BMI 20.9
--- OUTSIDE RECORDS SUMMARY | 2024-07-09 08:51 | XMS_ITS | Encounter Summary ---
[facility] Organization [facility] Address [address] [place] [address] Care Team Providers Care Manager Activities Name Role Phone Lisa Sykes MD Primary Care Provider Breanne Dodd MD Primary Care Provider Sandeep Castle MD Unavailable [phone] Marizol Chen PA-C Unavailable Kd Smith MD Primary Care Provider + Fanta Sarabia NP Primary Care Provider Unavail [facility] Primary Care Provider [facility] Fanta Sarabia PASTORAL COUNSELOR Primary Care Provider Unavail [facility] Encounter Details Date Type Department Care Team Description 08/01/2010 Old Medical Records Medical Records [address] [place] [address] Abstract, Provider Social History Tobacco Use Types Packs/Day Years Used Date Smoking Tobacco: Former Comments:quit in college Alcohol Use Standard Drinks/Week Comments Yes 0 (1 standard drink = 0.6 oz pur e alcohol) socially Sex Assigned at Date Recorded Not on file Job Start Date Occupation Industry Not on file Not on file Not on file documented as of this encounter Plan of Treatment Not on file documented as of this encounter Visit Diagnoses Not on filedocumented in this encounter Care Teams Manager Activities Relationship Specialty Start Date End Date Lisa Sykes MD PCP - General 07/24/10 01/18/21 Breanne Coats MD PCP - General Internal Medicine 01/19/21 11/21/21 Kd Smith MD [address] [place] [address] PCP - General Internal Medicine 11/22/21 02/06/22 Fanta Sarabia NP [address] [place] [address] PCP - General Internal Medicine 02/07/22 03/15/22 [facility], Pcp [address] [place] [address] PCP - General Internal Medicine 03/16/22 05/15/22 Fanta Sarabia NP [address] [place] [address] PCP - General Internal Medicine 05/16/22 Sandeep Rice MD [address] [address] Specialist Cardiology 10/02/21 Marizol Chen PA-C [address] [address] Specialist Cardiology 10/02/21 documented as of this encounter
--- OUTSIDE RECORDS SUMMARY | 2024-07-09 08:51 | XMS_ITS | Encounter Summary ---
[facility] Organization [facility] Address [address] [place] [address] Care Team Providers Care Percussion Welding Machine Operator Name Role Phone Lisa Sykes MD Primary Care Provider Breanne Dodd MD Primary Care Provider Sandeep Castle MD Unavailable [phone] Marizol Chen PA-C Unavailable Kd Smith MD Primary Care Provider + Fanta Sarabia NP Primary Care Provider Unavail able [facility] Pcp [facility] Fanta Sarabia REGULATOR ASSEMBLER Primary Care Provider Unavail able Encounter Details Date Type Department Care Team Description 01/07/2020 Business Doc Medical Records [address] [place] [address] Abstract, Provider Social History Tobacco Use Types Packs/Day Years Used Date Smoking Tobacco: Former Smokeless Tobacco: Never Comments:quit in college Alcohol Use Standard Drinks/Week Comments Yes 5.8 (1 standard drink = 0.6 oz p ure alcohol) wine nightly Sex Assigned at Date Recorded Not on file Job Start Date Occupation Industry Not on file Not on file Not on file COVID-19 Exposure Response Date Recorded In the last month, have you been in contact with someone who was confirmed or suspected to have Coronavirus / COVID-19? No / Unsure 01/01/2020 2:34 PM EDT documented as of this encounter Plan of Treatment Not on file documented as of this encounter Visit Diagnoses Not on filedocumented in this encounter Care Teams Percussion Welding Machine Operator Relationship Specialty Start Date End Date Sykes, Lisa, MD PCP - General 07/24/10 01/18/21 Breanne Coats MD PCP - General Internal Medicine 01/19/21 11/21/21 Kd Smith MD [address] [place] [address] PCP - General Internal Medicine 11/22/21 02/06/22 Fanta Sarabia NP [address] [place] [address] PCP - General Internal Medicine 02/07/22 03/15/22 [place] [id number] PCP - General Internal Medicine 03/16/22 05/15/22 Fanta Sarabia NP [address] [place] [address] PCP - General Internal Medicine 05/16/22 Sandeep Rice MD [address] [address] Specialist Cardiology 10/02/21 Marizol Chen PA-C [address] [address] Specialist Cardiology 10/02/21 documented as of this encounter
--- OUTSIDE RECORDS SUMMARY | 2024-07-09 08:51 | XMS_ITS | Encounter Summary ---
[facility] Organization [facility] Address [address] [place] [address] Care Team Providers Care Wood Mechanist Name Role Phone Breanne Coats MD Primary Care Provider Sandeep Castle MD Unavailable [phone] Marizol Chen PA-C Unavailable Kd Smith MD Primary Care Provider + Fnata Sarabia NP Primary Care Provider Unavail able [facility], Pcp [facility] Fanta Sarabia WELT SLASHER Primary Care Provider Unavail able Reason for Visit * Reason Onset Date Comments er follow up 03/01/2021 Encounter Details Date Type Department Care Team Description 03/01/2021 Telephone Adult [address] [phone] Breanne Coats MD er follow up Social History Tobacco Use Types Packs/Day Years [...] have Coronavirus / COVID-19? No / Unsure 02/16/2021 8:35 AM EDT documented as of this encounter Miscellaneous Notes * Telephone Encounter - Laura Dooley - 03/02/2021 10:14 AM EDT Contacted patient, offered first available for 03/08 and patient declined appt and stated she will be leaving practice and hung up. * Telephone Encounter - Rosalina Go - 03/01/2021 11:48 AM EDT ER/UC follow-up appointment message Patients PCP: Breanne Coats When was patient seen at the ER or Urgent Care Center: Urgent Care [facility] What was the injury or problem the patient went to the ER/UC for? RT Foot pain If the patient was seen for an injury what as the DOI? N/A Were x-rays taken? YES Was lab work done? NO Were any other tests done? NO If yes, what tests? N/A documented in this encounter Plan of Treatment Not on file documented as of this encounter Visit Diagnoses Not on filedocumented in this encounter Care Teams Wood Mechanist Relationship Specialty Start Date End Date Breanne Coats MD PCP - General Internal Medicine 01/19/21 11/21/21 Kd Smith MD [address] [place] [address] PCP - General Internal Medicine 11/22/21 02/06/22 Fanta Sarabia NP [address] [place] [address] PCP - General Internal Medicine 02/07/22 03/15/22 [facility], Pcp [address] [place] [address] PCP - General Internal Medicine 03/16/22 05/15/22 Fanta Sarabia NP [address] [place] [address] PCP - General Internal Medicine 05/16/22 Sandeep Rice MD [address] [place] [address] Specialist Cardiology 10/02/21 Marizol Chen PA-C 300 [facility] [address] [place] [address] Specialist Cardiology 10/02/21 documented as of this encounter
--- OUTSIDE RECORDS SUMMARY | 2024-07-09 08:51 | XMS_ITS | Encounter Summary ---
Author Organization [facility] [employer] [facility] Address [address] [place] [address] Care Team Providers Care Rn Ambulatory Name Role Phone Sandeep Rice MD Unavailable [phone] Marizol Chen PA-C Unavailable Fanta Sarabia NP Primary Care Provider Unavail able Encounter Details Date Type Department Care Team Description 01/21/2024 Orders Only Cardio PVC POC 154 300 [facility] [address] [place] [address] Default, Provider Social History Tobacco Use Types Packs/Day [...] on file documented as of this encounter Procedures Procedure Name Priority Date/Time Associated Diagnosis Comments OUTSIDE LAB Routine 11/18/2023 documented in this encounter Results * OUTSIDE LAB (11/18/2023) Provider Default LAB documented in this encounter Visit Diagnoses Not on filedocumented in this encounter Care Teams Rn Ambulatory Relationship Specialty Start Date End Date Fanta Sarabia NP [address] [facility] [address] [place] [address] PCP - General Internal Medicine 05/16/22 Sandeep Rice MD 300 [facility] [address] [place], [place] 7974804 Specialist Cardiology 10/02/21 Marizol Chen PA-C [address] [place] [address] Specialist Cardiology 10/02/21 documented as of this encounter
--- OUTSIDE RECORDS SUMMARY | 2024-07-09 08:51 | XMS_ITS | Encounter Summary ---
[facility] Address [address] [place] [address] Care Team Providers Care Power Operator Name Role Phone Lisa Sykes MD Primary Care Provider Breanne Dodd MD Primary Care Provider Sandeep Castle MD Unavailable [phone] Marizol Chen PA-C Unavailable Kd Smith MD Primary Care Provider + Fanta Sarabia NP Primary Care Provider Unavail able [facility] Pcp [facility] Fanta Sarabia NP Primary Care Provider Unavail able Encounter Details Date Type Department Care Team Description 05/18/2020 Motor Vehicle Dispatcher Report Medical Records [address] [place] [address] Ana Fernández Social History Tobacco Use Types Packs/Day Years [...] have Coronavirus / COVID-19? No / Unsure 05/02/2020 10:31 AM EST documented as of this encounter Plan of Treatment Not on file documented as of this encounter Visit Diagnoses Not on filedocumented in this encounter Care Teams Power Operator Relationship Specialty Start Date End Date Lisa Sykes MD PCP - General 07/24/10 01/18/21 Breanne Coats MD PCP - General Internal Medicine 01/19/21 11/21/21 Kd Smith MD [address] [place] [address] PCP - General Internal Medicine 11/22/21 02/06/22 Fanta Sarabia NP [address] [place] [address] PCP - General Internal Medicine 02/07/22 03/15/[address] [address] PCP - General Internal Medicine 03/16/22 05/15/22 Fanta Sarabia NP [address] [place] [address] PCP - General Internal Medicine 05/16/22 Sandeep Rice MD [address] [address] Specialist Cardiology 10/02/21 Marizol Chen PA-C [address] [address] Specialist Cardiology 10/02/21 documented as of this encounter
--- OUTSIDE RECORDS SUMMARY | 2024-07-09 08:51 | XMS_ITS | Encounter Summary ---
Author Organization [facility] Address [address] [place] [address] Care Team Providers Care Head Cd Reactor Operator Name Role Phone Lisa Sykes MD Primary Care Provider Breanne Dodd MD Primary Care Provider Sandeep Castle MD Unavailable [phone] Marizol Chen PA-C Unavailable Kd Smith MD Primary Care Provider + Fanta Sarabia NP Primary Care Provider Unavail able [facility], Pcp [facility] Fanta Sarabia TAPPER HELPER Primary Care Provider Unavail able Reason for Visit * Reason Comments E-prescribe Rx Request Encounter Details Date Type Department Care Team Description 12/15/2016 Refill Adult Medicine [address] [phone] Elisabeth Christian PA-C [address] [place] [address] E-prescribe Rx Request Social History Tobacco Use Types Packs/Day Years Used Date Smoking Tobacco: Former Smokeless Tobacco: Never Comments:quit in college Alcohol Use Standard Drinks/Week Comments Yes 5.8 (1 standard drink = 0.6 oz p ure alcohol) wine nightly Sex Assigned at Date Recorded Not on file Job Start Date Occupation Industry Not on file Not on file Not on file documented as of this encounter Miscellaneous Notes * Telephone Encounter - Elisabeth Christian PA-C - 12/24/2016 4:38 PM EDT Patient is requesting medications too early. She should have 1 month left * Telephone Encounter - Yakelin Guajardo M.A. - 12/24/2016 4:24 PM EDT Message left for patient to return my call. Imelda do you want to put orders in for labs .....Sine last 02/2015 f/u with Dr. Sykes 04/2017 * Telephone Encounter - Galilea AparicioPLuis AngelNLuis Angel - 12/20/2016 9:09 AM EDT Telephone Information: Patient notified , she asif have labs tomorrow , then will review and send the 90 day * Telephone Encounter - Elisabeth Christian PA-C - 12/17/2016 12:40 PM EDT 90 day not appropriate. Needs labs * Telephone Encounter - Preeti Raphael M.A. - 12/17/2016 12:20 PM EDT Lab Results Component Value Date NA 140 03/16/2015 K 3.8 03/16/2015 CO2 27.3 03/16/2015 CL 99 03/16/2015 BUN 13 03/16/2015 CREAT 0.6 03/16/2015 GLU 104 03/16/2015 CA 9.3 03/16/2015 GFR > 60 03/16/2015 * Telephone Encounter - Cait Denny 12/17/2016 10:09 AM EDT Patient would like script to be: E-PRESCRIBED/FAXED TO PHARMACY WHEN WAS THE PATIENT'S LAST APPOINTMENT IN ADULT MEDICINE? 10/22/16 WHEN WAS THE LAST TIME THE PATIENT SAW THEIR PCP? 05/20/16 Does patient have an upcoming appointment? Yes 05/07/17 (THE MEDICATION REQUESTED IS ON THE MED LIST ABOVE) All of the medications requested were on the CURRENT MEDS list Did you check the Pharmacy information above?: YES Patient wants: 90 -day supply Is this a mail order prescription request ? YES Patients current insurance carrier is: Payor: [employer] / Plan: [employer] $20 BOULDER 1 / Product Type: HMO [id number] documented in this encounter Plan of Treatment Not on file documented as of this encounter Visit Diagnoses Not on filedocumented in this encounter Care Teams Head Cd Reactor Operator Relationship Specialty Start Date End Date Lisa Sykes MD PCP - General 07/24/10 01/18/21 Breanne Coats MD PCP - General Internal Medicine 01/19/21 11/21/21 Kd Smith MD [address] [place] [address] PCP - General Internal Medicine 11/22/21 02/06/22 Fanta Sarabia NP [address] [place] [address] PCP - General Internal Medicine 02/07/22 03/15/22 Clare Kelly [address] [place] [address] PCP - General Internal Medicine 03/16/22 05/15/22 Fanta Sarabia NP 4 [place] [address] PCP - General Internal Medicine 05/16/22 Sandeep Rice MD [address] [address] Specialist Cardiology 10/02/21 Marizol Chen PA-C [address] [address] Specialist Cardiology 10/02/21 documented as of this encounter
--- OUTSIDE RECORDS SUMMARY | 2024-07-09 08:51 | XMS_ITS | Encounter Summary ---
[facility] Address [address] [place] [address] Care Team Providers Care Can Labeler Name Role Phone Lisa Sykes MD Primary Care Provider UnaDebbi Carter MD Primary Care Provider Unavailable Breanne Coats MD Primary Care Provider Sandeep Castle MD Unavailable [phone] Marizol Chen PA-C Unavailable Kd Smith MD Primary Care Provider + Fanta Sarabia NP Primary Care Provider Unavail [facility] Primary Care Provider [facility] Fanta Sarabia NP Primary Care Provider Unavail [facility] Encounter Details Date Type Department Care Team Description 11/01/2009 Film Examiner Report Medical Records [address] [place] [address] Ruben Sandoval Social History Tobacco Use Types Packs/Day Years [...] on filedocumented in this encounter Care Teams Can Labeler Relationship Specialty Start Date End Date Lisa Sykes MD PCP - General 07/24/10 01/18/21 Debbi To MD PCP - General 04/28/199307/23 Breanne Coats MD PCP - General Internal Medicine 01/19/21 11/21/21 Kd Smith MD [address] [place] [address] PCP - General Internal Medicine 11/22/21 02/06/22 Fanta Sarabia NP [address] [place] [address] PCP - General Internal Medicine 02/07/22 03/15/22 [facility] Pcp [address] [place] [address] PCP - General Internal Medicine 03/16/22 05/15/22 Fanta Sarabia NP [address] [place] [address] PCP - General Internal Medicine 05/16/22 Sandeep Rice MD [address] [place] [address] Specialist Cardiology 10/02/21 Marizol Chen PA-C [address] [place] [address] Specialist Cardiology 10/02/21 documented as of this encounter
--- OUTSIDE RECORDS SUMMARY | 2024-07-09 08:51 | XMS_ITS | Encounter Summary ---
Author Organization [facility] Address [address] [place] [address] Care Team Providers Care Car Packer Name Role Phone Lisa Sykes MD Primary Care Provider Breanne Dodd MD Primary Care Provider Sandeep Castle MD Unavailable [phone] Marizol Chen PA-C Unavailable Kd Smith MD Primary Care Provider + Fanta Sarabia NP Primary Care Provider Unavail able [facility] Pcp [facility] Fanta Sarabia DOG WALKER Primary Care Provider Unavail able Reason for Visit * Reason Onset Date Comments refill request 05/20/2016 Encounter Details Date Type Department Care Team Description 05/20/2016 Refill Adult Urgent Care - [address] [phone] Lisa Sykes MD refill request Social History Tobacco Use Types Packs/Day Years [...] encounter Miscellaneous Notes * Telephone Encounter - Milind Granger L.P.NLuis Angel - 05/20/2016 4:48 PM EST noted * Telephone Encounter - Lisa Sykes MD - 05/20/2016 4:45 PM EST SENT * Telephone Encounter - Nakul Marshall - 05/20/2016 3:35 PM EST Patient seen today. Needs a refill of albuterol for the updraft machine. Not listed on med list. Gets it from her him clerk. Send to [facility] documented in this encounter Plan of Treatment Not on file documented as of this encounter Visit Diagnoses Not on filedocumented in this encounter Care Teams Car Packer Relationship Specialty Start Date End Date Lisa Sykes MD PCP - General 07/24/10 01/18/21 Breanne Coats MD PCP - General Internal Medicine 01/19/21 11/21/21 Kd Smith MD [address] [place] [address] PCP - General Internal Medicine 11/22/21 02/06/22 Fanta Sarabia NP [address] [place] [address] PCP - General Internal Medicine 02/07/22 03/15/22 [facility], Pcp [address] [place] [address] PCP - General Internal Medicine 03/16/22 05/15/22 Fanta Sarabia NP [address] [place] [address] PCP - General Internal Medicine 05/16/22 Sandeep Rice MD [address] [address] Specialist Cardiology 10/02/21 Marizol Chen PA-C 300 [facility] [address] [place] [address] Specialist Cardiology 10/02/21 documented as of this encounter
--- OUTSIDE RECORDS SUMMARY | 2024-07-09 08:51 | XMS_ITS | Encounter Summary ---
Author Organization [facility] Address [address] [place] [address] Care Team Providers Care Die Repair Machinist Name Role Phone Lisa Sykes MD Primary Care Provider UnaDebbi Carter MD Primary Care Provider Unavailable Breanne Coats MD Primary Care Provider Sandeep Castle MD Unavailable [phone] Marizol Chen PA-C Unavailable Kd Smith MD Primary Care Provider + Fanta Sarabia NP Primary Care Provider Unavail [facility] Primary Care Provider [facility] aFnta Sarabia NP Primary Care Provider Unavail [facility] Encounter Details Date Type Department Care Team Description 09/08/2009 Furniture Lumber Production Worker Report Medical Records [address] [place] [address] Kylie Wong MD Social History Tobacco Use Types Packs/Day Years [...] on filedocumented in this encounter Care Teams Die Repair Machinist Relationship Specialty Start Date End Date Lisa Sykes MD PCP - General 07/24/10 01/18/21 Debbi To MD PCP - General 04/28/199307/23 Breanne Coats MD PCP - General Internal Medicine 01/19/21 11/21/21 Kd Smith MD [address] [place] [address] PCP - General Internal Medicine 11/22/21 02/06/22 Fanta Sarabia NP [address] [place] [address] PCP - General Internal Medicine 02/07/22 03/15/22 [facility] Pcp [address] [place] [address] PCP - General Internal Medicine 03/16/22 05/15/22 Fanta Sarabia NP [address] [place] [address] PCP - General Internal Medicine 05/16/22 Sandeep Rice MD [address] [place] [address] Specialist Cardiology 10/02/21 Marizol Chen PA-C [address] [place] [address] Specialist Cardiology 10/02/21 documented as of this encounter
--- OUTSIDE RECORDS SUMMARY | 2024-07-09 08:51 | XMS_ITS | Encounter Summary ---
Author Organization [facility] Address [address] [place] [address] Care Team Providers Care Religious Healer Name Role Phone Lisa Sykes MD Primary Care Provider Breanne Dodd MD Primary Care Provider Sandeep Castle MD Unavailable [phone] Marizol Chen PA-C Unavailable Kd Smith MD Primary Care Provider + Fanta Sarabia NP Primary Care Provider Unavail able [facility], Pcp [facility] Fanta Sarabia PRODUCT TESTER FIBERGLASS Primary Care Provider Unavail able Reason for Visit * Reason Onset Date Comments Prior Authorization 01/11/2021 Cordran 4MCG /SQCM Tape Encounter Details Date Type Department Care Team Description 01/11/2021 Telephone Dermatology - [address] [phone] Gail Linda PA-C Prior Authorization (Cordran 4MCG/SQCM Tape) Social History Tobacco Use Types Packs/Day Years [...] have Coronavirus / COVID-19? No / Unsure 01/10/2021 10:21 AM EDT documented as of this encounter Miscellaneous Notes * Telephone Encounter - Neisha Mattson M.A. - 01/11/2021 3:52 PM EDT Approval for Cordran tape. Approved from 10/13/2020-01/11/2022. [facility] notified by fax. * Telephone Encounter - Neisha Mattson M.A. - 01/11/2021 1:59 PM EDT Dx code:L28.0 [facility] Prior authorization done on CMM to for COrdran 4mcg/sqcm tape. * Telephone Encounter - Gail Davis - 01/11/2021 8:48 AM EDT Prior Authorization for Medication-do not complete and send this encounter unless you have the fax from the pharmacy. Is this a Cover My Meds request: Yes -- Cleaning Code [id number] Name of Medication Cordran 4MCG/SQCM Tape Dose of Medication What is the RX # from the faxed refill? How does patient take this med? What Pharmacy did the fax come from: [facility] fax #: [phone] [employer] Information from fax: What Prescription Plan does the patient have? BIN/PCN if applicable: Cardholder ID: Person Code: Relationship Code: Help desk phone: documented in this encounter Plan of Treatment Not on file documented as of this encounter Visit Diagnoses Not on filedocumented in this encounter Care Teams Religious Healer Relationship Specialty Start Date End Date Lisa Sykes MD PCP - General 07/24/10 01/18/21 Breanne Coats MD PCP - General Internal Medicine 01/19/21 11/21/21 Kd Smith MD [address] [place] [address] PCP - General Internal Medicine 11/22/21 02/06/22 Fanta Sarabia NP [address] [place] [address] PCP - General Internal Medicine 02/07/22 03/15/22 [facility] Pcp [address] [place] [address] PCP - General Internal Medicine 03/16/22 05/15/22 Fanta Sarabia NP [address] [place] [address] PCP - General Internal Medicine 05/16/22 Sandeep Rice MD [address] [address] Specialist Cardiology 10/02/21 Marizol Chen PA-C [address] [address] Specialist Cardiology 10/02/21 documented as of this encounter
--- OUTSIDE RECORDS SUMMARY | 2024-07-09 08:51 | XMS_ITS | Encounter Summary ---
[facility] Organization [facility] Address [address] [place] [address] Care Team Providers Care Certified Medicine Aide Name Role Phone Lisa Sykes MD Primary Care Provider Breanne Dodd MD Primary Care Provider Sandeep Castle MD Unavailable [phone] Marizol Chen PA-C Unavailable Kd Smith MD Primary Care Provider + Fanta Sarabia NP Primary Care Provider Unavail [facility] Fanta Sarabia POT FILLER Primary Care Provider Unavail [facility] Encounter Details Date Type Department Care Team Description 11/21/2020 Dry Cans Back Tender Report Medical Records [address] [place] [address] Ana Fernández Social History Tobacco Use Types [...] on filedocumented in this encounter Care Teams Certified Medicine Aide Relationship Specialty Start Date End Date Lisa Sykes MD PCP - General 07/24/10 01/18/21 Breanne Coats MD PCP - General Internal Medicine 01/19/21 11/21/21 Kd Smith MD [address] [place] [address] PCP - General Internal Medicine 11/22/21 02/06/22 Fanta Sarabia NP [address] [place] [address] PCP - General Internal Medicine 02/07/22 03/15/22 [facility], Pcp [address] [place] [address] PCP - General Internal Medicine 03/16/22 05/15/22 Fanta Sarabia NP [address] [place] [address] PCP - General Internal Medicine 05/16/22 Sandeep Rice MD [address] [address] Specialist Cardiology 10/02/21 Marizol Chen PA-C [address] [address] Specialist Cardiology 10/02/21 documented as of this encounter
--- OUTSIDE RECORDS SUMMARY | 2024-07-09 08:51 | XMS_ITS | Encounter Summary ---
Author Organization [facility] Address [address] [place] [address] Care Team Providers Care Bed Worker Name Role Phone Lisa Sykes MD Primary Care Provider Debbi Dowell MD Primary Care Provider Unavailable Breanne Coats MD Primary Care Provider UnaSandeep Lambert MD Unavailable [phone] Marizol Chen PA-C Unavailable Kd Smith MD Primary Care Provider + Fanta Sarabia NP Primary Care Provider Unavail able [facility] Pcp [facility] Fanta Sarabia NP Primary Care Provider Unavail able Reason for Visit * Reason Comments Faxed Refill FAX Encounter Details Date Type Department Care Team Description 08/26/2002 Telephone Adult Medicine [address] [address] Andrei Scott MD Faxed Refill (FAX) Social History Tobacco Use Types Packs/Day Years Used Date Smoking Tobacco: Never Assessed Sex Assigned at Date Recorded Not on file Job Start Date Occupation Industry Not on file Not on file Not on file documented as of this encounter Miscellaneous Notes * Telephone Encounter - 08/26/2002 10:43 AM EDTCALL RECEIVED. Contact: [facility] FOR REFILL [facility] () documented in this encounter Plan of Treatment Not on file documented as of this encounter Visit Diagnoses Not on filedocumented in this encounter Care Teams Bed Worker Relationship Specialty Start Date End Date Lisa Sykes MD PCP - General 07/24/10 01/18/21 Carlos-Debbi Rhodes MD PCP - General 04/28/199307/23 Breanne Coats MD PCP - General Internal Medicine 01/19/21 11/21/21 Kd Smith MD [address] [place] [address] PCP - General Internal Medicine 11/22/21 02/06/22 Fanta Sarabia NP [address] [place] [address] PCP - General Internal Medicine 02/07/22 03/15/[address] [address] PCP - General Internal Medicine 03/16/22 05/15/22 Fanta Sarabia, NICHOLAS [address] [place] [address] PCP - General Internal Medicine 05/16/22 Sandeep Rice MD [address] [address] Specialist Cardiology 10/02/21 Marizol Chen PA-C [address] [facility] [address] [place] [address] Specialist Cardiology 10/02/21 documented as of this encounter
--- OUTSIDE RECORDS SUMMARY | 2024-07-09 08:52 | XMS_ITS | Encounter Summary ---
Author Organization [facility] Address [address] [place] [address] Care Team Providers Care Warpman Name Role Phone Breanne Coats MD Primary Care Provider Sandeep Castle MD Unavailable Marizol Chen PA-C Unavailable Kd Smith MD Primary Care Provider + Fanta Sarabia NP Primary Care Provider Unavail able [facility], Pcp [facility] Fanta Sarabia WATCH INSPECTOR Primary Care Provider Unavail able Reason for Visit * Reason Comments E-prescribe Rx Request Encounter Details Date Type Department Care Team Description 09/17/2021 Refill Adult Medicine [address] [id number] Isatu Louis PA [address] [place] [address] [phone] E-prescribe Rx Request Social History Tobacco Use [...] encounter Miscellaneous Notes * Telephone Encounter - Renetta Moran M.A. - 10/09/2021 1:42 PM EDT Lab Results Component Value Date NA 139 06/28/2020 K 3.8 06/28/2020 CO2 29 06/28/2020 CL 103 06/28/2020 BUN 10 06/28/2020 CREAT 0.71 06/28/2020 GLU 95 06/28/2020 CA 9.6 06/28/2020 GFR > 60 06/28/2020 JEAN-PAUL 03/21/21 NO pending appt. - No Show 09/13/21 * Telephone Encounter - Gisell Isaac - 10/09/2021 11:35 AM EDT L/m for pt update pcp and make future appt. 3rd attempt Letter mailed to patient * Telephone Encounter - Gisell Isaac - 09/29/2021 2:59 PM EDT L/m for pt update pcp and make future appt. 2 attempt * Telephone Encounter - Kenya Rico - 09/18/2021 3:00 PM EDT Patient would like script to be: E-PRESCRIBED/FAXED TO PHARMACY WHEN WAS THE PATIENT'S LAST APPOINTMENT IN ADULT MEDICINE? 03/21/21 WHEN WAS THE LAST TIME THE PATIENT SAW THEIR PCP? never Does patient have an upcoming appointment? Voice mail msgs asking patient to call an make appt so refill can be processed. (THE MEDICATION REQUESTED IS ON THE MED LIST ABOVE) All of the medications requested were on the CURRENT MEDS list Did you check the Pharmacy information above?: YES Patient wants: 90 -day supply Is this a mail order prescription request ? NO If the refill is from a FAXED refill request what is the RX # listed on the fax? N/A Patients current insurance carrier is: [place] / [place] / Product Type: MEDICARE [id number] documented in this encounter Plan of Treatment Not on file documented as of this encounter Visit Diagnoses Not on filedocumented in this encounter Care Teams Warpman Relationship Specialty Start Date End Date Breanne Coats MD PCP - General Internal Medicine 01/19/21 11/21/21 Kd Smith MD [address] [place] [address] PCP - General Internal Medicine 11/22/21 02/06/22 Fanta Sarabia NP [address] [place] [address] PCP - General Internal Medicine 02/07/22 03/15/[address] [address] PCP - General Internal Medicine 03/16/22 05/15/22 Fanta Sarabia NP [address] [place] [address] PCP - General Internal Medicine 05/16/22 Sandeep Rice MD [address] [address] Specialist Cardiology 10/02/21 Marizol Chen PA-C [address] [address] Specialist Cardiology 10/02/21 documented as of this encounter
--- OUTSIDE RECORDS SUMMARY | 2024-07-09 08:52 | XMS_ITS | Encounter Summary ---
Author Organization [facility] Address [address] [place] [address] Care Team Providers Care Ice Grinder Name Role Phone Lisa Sykes MD Primary Care Provider Breanne Dodd MD Primary Care Provider Sandeep Castle MD Unavailable [phone] Marizol Chen PA-C Unavailable Kd Smith MD Primary Care Provider + Fanta Sarabia NP Primary Care Provider Unavail [facility] Primary Care Provider [facility] Fanta Sarabia CUSTOMER EXPERIENCE RETAIL CLERK Primary Care Provider Unavail [facility] Encounter Details Date Type Department Care Team Description 07/22/2012 Release of Information Medical Records [address] [place] [phone] Abstract, Provider Social History Tobacco Use Types [...] on filedocumented in this encounter Care Teams Ice Grinder Relationship Specialty Start Date End Date Lisa Sykes MD PCP - General 07/24/10 01/18/21 Breanne Coats MD PCP - General Internal Medicine 01/19/21 11/21/21 Kd Smith MD [address] [place] [address] PCP - General Internal Medicine 11/22/21 02/06/22 Fanta Sarabia NP [address] [place] [address] PCP - General Internal Medicine 02/07/22 03/15/22 [facility] Pcp [address] [place] [address] PCP - General Internal Medicine 03/16/22 05/15/22 Fanta Sarabia NP [address] [place] [address] PCP - General Internal Medicine 05/16/22 Sandeep Rice MD [address] [address] Specialist Cardiology 10/02/21 Marizol Chen PA-C [address] [address] Specialist Cardiology 10/02/21 documented as of this encounter
--- OUTSIDE RECORDS SUMMARY | 2024-07-09 08:52 | XMS_ITS | Encounter Summary ---
Author Organization [facility] Address [address] [place] [address] Care Team Providers Care Erp Pm Name Role Phone Breanne Coats MD Primary Care Provider Sandeep Castle MD Unavailable [phone] Marizol Chen PA-C Unavailable Kd Smith MD Primary Care Provider + Fanta Sarabia NP Primary Care Provider Unavail able [facility] Pcp [facility] Fanta Sarabia RETREADER Primary Care Provider Unavail able Encounter Details Date Type Department Care Team Description 09/29/2021 SCAN Medical Records [address] [place] [address] Abstract, Provider Social History Tobacco Use Types [...] Name Priority Date/Time Associated Diagnosis Comments OUTSIDE ECHO Routine 09/29/2021 documented in this encounter Results * OUTSIDE ECHO (09/29/2021) Provider Default CARDIOLOGY documented in this encounter Visit Diagnoses Not on filedocumented in this encounter Care Teams Erp Pm Relationship Specialty Start Date End Date Breanne Coats MD PCP - General Internal Medicine 01/19/21 11/21/21 Kd Smith MD [address] [place] [address] PCP - General Internal Medicine 11/22/21 02/06/22 Fanta Sarabia NP [address] [place] [address] PCP - General Internal Medicine 02/07/22 03/15/22 [facility] Pcp [address] [place] [address] PCP - General Internal Medicine 03/16/22 05/15/22 Fanta Sarabia NP [address] [place] [address] PCP - General Internal Medicine 05/16/22 Sandeep Rice MD [address] [address] Specialist Cardiology 10/02/21 Marizol Chen PA-C [address] [facility] [address] [place] [address] Specialist Cardiology 10/02/21 documented as of this encounter
--- OUTSIDE RECORDS SUMMARY | 2024-07-09 08:52 | XMS_ITS | Encounter Summary ---
Author Organization [facility] Address [address] [place] [address] Care Team Providers Care Sign Language Teacher Name Role Phone Sandeep Rice MD Unavailable [phone] Marizol Chen PA-C Unavailable Kd Smith MD Primary Care Provider + Fanta Sarabia NP Primary Care Provider Unavail able [facility], Pcp [facility] Fanta Sarabia NP Primary Care Provider Unavail able Encounter Details Date Type Department Care Team Description 02/01/2022 Machine Folder Report Medical Records [address] [place] [address] Fanta Sarabia NP Social History Tobacco Use Types Packs/Day Years [...] on filedocumented in this encounter Care Teams Sign Language Teacher Relationship Specialty Start Date End Date Kd Smith MD [address] [place] [address] PCP - General Internal Medicine 11/22/21 02/06/22 Fanta Sarabia NP [address] [place] [address] PCP - General Internal Medicine 02/07/22 03/15/22 [facility], Pcp [address] [place] [address] PCP - General Internal Medicine 03/16/22 05/15/22 Fanta Sarabia NP [address] [place] [address] PCP - General Internal Medicine 05/16/22 Sandeep Rice MD [address] [facility] [address] [place] [address] Specialist Cardiology 10/02/21 Marizol Chen PA-C [address] [facility] [address] [place] [address] Specialist Cardiology 10/02/21 documented as of this encounter
--- OUTSIDE RECORDS SUMMARY | 2024-07-09 08:52 | XMS_ITS | Encounter Summary ---
Author Organization [facility] [place] [facility] Address [address] [place] [address] Care Team Providers Care Corporate Legal Assistant Name Role Phone Breanne Coats MD Primary Care Provider Sandeep Castle MD Unavailable [phone] Marizol Chen PA-C Unavailable Kd Smith MD Primary Care Provider + Fanta Sarabia NP Primary Care Provider Unavail able [facility] Pcp Primary Care [facility] Fanta Sarabia SEO EXECUTIVE Primary Care Provider Unavail able Encounter Details Date Type Department Care Team Description 09/28/2021 SCAN Medical Records [address] [place] [address] Abstract, Provider Social History Tobacco Use Types [...] Date/Time Associated Diagnosis Comments OUTSIDE LAB Routine 09/28/2021 documented in this encounter Results * OUTSIDE LAB (09/28/2021) Provider Abstract LAB documented in this encounter Visit Diagnoses Not on filedocumented in this encounter Care Teams Corporate Legal Assistant Relationship Specialty Start Date End Date Breanne Coats MD PCP - General Internal Medicine 01/19/21 11/21/21 Kd Smith MD [address] [place] [address] PCP - General Internal Medicine 11/22/21 02/06/22 Fanta Sarabia NP [address] [place] [address] PCP - General Internal Medicine 02/07/22 03/15/22 [facility] Pcp [address] [place] [address] PCP - General Internal Medicine 03/16/22 05/15/22 Fanta Sarabia NP [address] [place] [address] PCP - General Internal Medicine 05/16/22 Sandeep Rice MD [address] [address] Specialist Cardiology 10/02/21 Marizol Chen PA-C [address] [facility] [address] [place] [address] Specialist Cardiology 10/02/21 documented as of this encounter
--- OUTSIDE RECORDS SUMMARY | 2024-07-09 08:52 | XMS_ITS | Encounter Summary ---
Author Organization [facility] Address [address] [place] [address] Care Team Providers Care Corporate Strategy Associate Name Role Phone Lisa Sykes MD Primary Care Provider Breanne Dodd MD Primary Care Provider Sandeep Castle MD Unavailable [phone] Marizol Chen PA-C Unavailable Kd Smith MD Primary Care Provider + Fanta Sarabia NP Primary Care Provider Unavail [facility] Primary Care Provider [facility] Fanta Sarabia RAILROAD PURCHASING AGENT Primary Care Provider Unavail able Encounter Details Date Type Department Care Team Description 03/26/2018 Hospital Medical Records [address] [place] [address] Social History Tobacco Use Types Packs/Day Years [...] filedocumented in this encounter Care Teams Corporate Strategy Associate Relationship Specialty Start Date End Date Lisa Sykes MD PCP - General 07/24/10 01/18/21 Breanne Coats MD PCP - General Internal Medicine 01/19/21 11/21/21 Kd Smith MD [address] [place] [address] PCP - General Internal Medicine 11/22/21 02/06/22 Fanta Sarabia NP [address] [place] [address] PCP - General Internal Medicine 02/07/22 03/15/22 [facility] Pcp [address] [place] [address] PCP - General Internal Medicine 03/16/22 05/15/22 Fanta Sarabia NP [address] [place] [address] PCP - General Internal Medicine 05/16/22 Sandeep Rice MD [address] [address] Specialist Cardiology 10/02/21 Marizol Chen PA-C [address] [address] Specialist Cardiology 10/02/21 documented as of this encounter
--- OUTSIDE RECORDS SUMMARY | 2024-07-09 08:52 | XMS_ITS | Encounter Summary ---
Author Organization [facility] Address [address] [place] [address] Care Team Providers Care Aviation Consultant Name Role Phone Lisa Sykes MD Primary Care Provider Breanne Dodd MD Primary Care Provider Sandeep Castle MD Unavailable [phone] Marizol Chen PA-C Unavailable Kd Smith MD Primary Care Provider + Fanta Sarabia NP Primary Care Provider Unavail [facility] Primary Care Provider [facility] Fanta Sarabia SCHOOL BUSINESS ADMINISTRATOR Primary Care Provider Unavail [facility] Encounter Details Date Type Department Care Team Description 06/14/2011 Fiberglass Boat Finisher Report Medical Records [address] [place] [address] Amberly Love NP Social History Tobacco Use Types Packs/Day [...] on filedocumented in this encounter Care Teams Aviation Consultant Relationship Specialty Start Date End Date Lisa Sykes MD PCP - General 07/24/10 01/18/21 Breanne Coats MD PCP - General Internal Medicine 01/19/21 11/21/21 Kd Smith MD [address] [place] [address] PCP - General Internal Medicine 11/22/21 02/06/22 Fanta Sarabia NP [address] [place] [address] PCP - General Internal Medicine 02/07/22 03/15/22 [facility] Pcp [address] [place] [address] PCP - General Internal Medicine 03/16/22 05/15/22 Fanta Sarabia NP [address] [place] [address] PCP - General Internal Medicine 05/16/22 Sandeep Rice MD [address] [address] Specialist Cardiology 10/02/21 Marizol Chen PA-C [address] [address] Specialist Cardiology 10/02/21 documented as of this encounter
--- OUTSIDE RECORDS SUMMARY | 2024-07-09 08:52 | XMS_ITS | Encounter Summary ---
Author Organization [facility] Address [address] [place] [address] Care Team Providers Care Bi Tester Name Role Phone Sandeep Rcie MD Unavailable [phone] Marizol Chen PA-C Unavailable Kd Smith MD Primary Care Provider + Fanta Sarabia NP Primary Care Provider Unavail able [facility] In[facility], Pcp [facility] Fanta Sarabia NP Primary Care Provider Unavail able Encounter Details Date Type Department Care Team Description 02/01/2022 On Air Director Report Medical Records [address] [place] [address] Fanta Sarabia NP Social History Tobacco Use [...] on filedocumented in this encounter Care Teams Bi Tester Relationship Specialty Start Date End Date Kd Smith MD [address] [place] [address] PCP - General Internal Medicine 11/22/21 02/06/22 Fanta Sarabia NP [address] [place] [address] PCP - General Internal Medicine 02/07/22 03/15/22 Count Includes [facility], Pcp [address] [place] [address] PCP - General Internal Medicine 03/16/22 05/15/22 Fanta Sarabia NP [address] [place] [address] PCP - General Internal Medicine 05/16/22 Sandeep Rice MD [address] [facility] [address] [place] [address] Specialist Cardiology 10/02/21 Marizol Chen PA-C [address] [facility] [address] [place] [address] Specialist Cardiology 10/02/21 documented as of this encounter
--- OUTSIDE RECORDS SUMMARY | 2024-07-09 08:52 | XMS_ITS | Encounter Summary ---
Author Organization [facility] Address [address] [place] [address] Care Team Providers Care Wind Farm Engineer Name Role Phone Lisa Sykes MD Primary Care Provider Breanne Dodd MD Primary Care Provider Sandeep Castle MD Unavailable [phone] Mairzol Chen PA-C Unavailable Kd Smith MD Primary Care Provider + Fanta Sarabia NP Primary Care Provider Unavail able [facility], [facility]cp [facility] Fanta Sarabia METROLOGY TECHNICIAN Primary Care Provider Unavail able Reason for Visit * Reason Comments E-prescribe Rx Request Encounter Details Date Type Department Care Team Description 04/03/2017 Refill Adult Medicine [address] [phone] Elisabeth Christian PA-C [address] [place] [address] [phone] E-prescribe Rx Request Social History Tobacco Use [...] encounter Miscellaneous Notes * Telephone Encounter - Gisell Denny 04/03/2017 7:06 AM EST Patient would like script to be: E-PRESCRIBED/FAXED [...] a mail order prescription request ? NO Patients current insurance carrier is: Payor: [employer] / Plan: Hostmonster $20 [place] 1 / Product Type: HMO [id number] documented in this encounter Plan of Treatment Not on file documented as of this encounter Visit Diagnoses Not on filedocumented in this encounter Care Teams Wind Farm Engineer Relationship Specialty Start Date End Date Lisa Sykes MD PCP - General 07/24/10 01/18/21 Breanne Coats MD PCP - General Internal Medicine 01/19/21 11/21/21 Kd Smith MD [address] [place] [address] PCP - General Internal Medicine 11/22/21 02/06/22 Fanta Sarabia NP [address] [place] [address] PCP - General Internal Medicine 02/07/22 03/15/22 Clare Kelly [address] [place] [address] PCP - General Internal Medicine 03/16/22 05/15/22 Fanta Sarabia NP [address] [place] [address] PCP - General Internal Medicine 05/16/22 Sandeep Rice MD [address] [address] Specialist Cardiology 10/02/21 Marizol Chen PA-C [address] [address] Specialist Cardiology 10/02/21 documented as of this encounter
--- OUTSIDE RECORDS SUMMARY | 2024-07-09 08:52 | XMS_ITS | Encounter Summary ---
Author Organization [facility] Address [address] [place] [address] Care Team Providers Care Plant Maintenance Technician Name Role Phone Breanne Coats MD Primary Care Provider Sandeep Castle MD Unavailable [phone] Marizol Chen PA-C Unavailable Kd Smith MD Primary Care Provider + Fanta Sarabia NP Primary Care Provider Unavail able [facility], Pcp Primary [facility] Fanta Sarabia OPERATIONS INTELLIGENCE SUPERINTENDENT Primary Care Provider Unavail able Reason for Visit * Reason Comments E-prescribe Rx Request Encounter Details Date Type Department Care Team Description 06/19/2021 Refill Adult Medicine [address] [phone] Isatu Louis PA [address] [place] [address] [phone] E-prescribe Rx Request Social History Tobacco Use [...] Telephone Encounter - Renetta Moran M.A. - 11/01/2021 1:05 PM EDT Is this a medication refill request, if so please PEND the medication and resend typically in a separate refill encounter as the inital refill request below was from May. Thank you! * Telephone Encounter - Elisabeth Martínez - 11/01/2021 11:45 AM EDT Refill on med list yes Last office visit : Last time with PCP: n/a Next office visit : 02/01/22 * Telephone Encounter - Preeti You - 06/20/2021 10:48 AM EST Lab Results Component Value Date NA 139 06/28/2020 K 3.8 06/28/2020 CO2 29 06/28/2020 CL 103 06/28/2020 BUN 10 06/28/2020 CREAT 0.71 06/28/2020 GLU 95 06/28/2020 CA 9.6 06/28/2020 GFR > 60 06/28/2020 * Telephone Encounter - Bonny Velázquez - 06/19/2021 8:05 AM EST Patient would like script to be: E-PRESCRIBED/FAXED TO PHARMACY WHEN WAS THE PATIENT'S LAST APPOINTMENT IN ADULT MEDICINE? 03/21/21 WHEN WAS THE LAST TIME THE PATIENT SAW THEIR PCP? Has not seen Does patient have an upcoming appointment? Yes 09/13/21 (THE MEDICATION REQUESTED IS ON THE MED [...] insurance carrier is: [place] / Plan: MEDICARE-[employer] / Product Type: MEDICARE [id number] documented in this encounter Plan of Treatment Not on file documented as of this encounter Visit Diagnoses Not on filedocumented in this encounter Care Teams Plant Maintenance Technician Relationship Specialty Start Date End Date Breanne Coats MD PCP - General Internal Medicine 01/19/21 11/21/21 Kd Smith MD [address] [place] [address] PCP - General Internal Medicine 11/22/21 02/06/22 Fanta Sarabia NP [address] [place] [address] PCP - General Internal Medicine 02/07/22 03/15/[address] [address] PCP - General Internal Medicine 03/16/22 05/15/22 Fanta Sarabia NP [address] [place] [address] PCP - General Internal Medicine 05/16/22 Sandeep Rice MD [address] [address] Specialist Cardiology 10/02/21 Marizol Chen PA-C [address] [address] Specialist Cardiology 10/02/21 documented as of this encounter
--- OUTSIDE RECORDS SUMMARY | 2024-07-09 08:52 | XMS_ITS | Encounter Summary ---
Author Organization [facility] Address [address] [place] [address] Care Team Providers Care Commissioner Of Relocation Services Name Role Phone Breanne Coats MD Primary Care Provider Sandeep Castle MD Unavailable [phone] Marizol Chen PA-C Unavailable Kd Smith MD Primary Care Provider + Fanta Sarabia NP Primary Care Provider Unavail able [facility], Pcp [facility] Fanta Sarabia CONCRETE SCULPTOR Primary Care Provider Unavail able Encounter Details Date Type Department Care Team Description 09/29/2021 SCAN Medical Records [address] [place] [address] Abstract, Provider Social History Tobacco Use Types [...] Name Priority Date/Time Associated Diagnosis Comments OUTSIDE EKG Routine 09/29/2021 documented in this encounter Results * OUTSIDE EKG (09/29/2021) Provider Default CARDIOLOGY documented in this encounter Visit Diagnoses Not on filedocumented in this encounter Care Teams Commissioner Of Relocation Services Relationship Specialty Start Date End Date Breanne Coats MD PCP - General Internal Medicine 01/19/21 11/21/21 Kd Smith MD [address] [place] [address] PCP - General Internal Medicine 11/22/21 02/06/22 Fanta Sarabia NP [address] [place] [address] PCP - General Internal Medicine 02/07/22 03/15/[address] [address] PCP - General Internal Medicine 03/16/22 05/15/22 Fanta Sarabia NP [address] [place] [address] PCP - General Internal Medicine 05/16/22 Sandeep Rice MD [address] [address] Specialist Cardiology 10/02/21 Marizol Chen PA-C [address] [address] Specialist Cardiology 10/02/21 documented as of this encounter
--- OUTSIDE RECORDS SUMMARY | 2024-07-09 08:52 | XMS_ITS | Encounter Summary ---
Author Organization [facility] Address [address] [place] [address] Care Team Providers Care Pit Laborer Name Role Phone Sandeep Rice MD Unavailable Marizol Chen PA-C Unavailable Kd Smith MD Primary Care Provider + Fanta Sarabia DISTILLERY WORKER Primary Care Provider Unavail able [facility], Pcp [facility] F[facility]abia NP Primary Care Provider Unavail able Encounter Details Date Type Department Care Team Description 12/01/2021 [facility] Medical Records [address] [place] [address] Abstract, Provider Social History Tobacco Use Types [...] Exposure Response Date Recorded In the last 10 days, have yo u been in contact with someone who was confirmed or suspected to have Coronavirus/COVID-19? No / Unsure 11/08/2021 10:31 AM EDT documented as of this encounter Plan of Treatment Not on file documented as of this encounter Visit Diagnoses Not on filedocumented in this encounter Care Teams Pit Laborer Relationship Specialty Start Date End Date Kd Smith MD [address] [place] [address] PCP - General Internal Medicine 11/22/21 02/06/22 Fanta Sarabia NP [address] [place] [address] PCP - General Internal Medicine 02/07/22 03/15/22 [facility] Pcp [address] [place] [address] PCP - General Internal Medicine 03/16/22 05/15/22 Fanta Sarabia NP [address] [place] [address] PCP - General Internal Medicine 05/16/22 Sandeep Rice MD [address] [place] [address] Specialist Cardiology 10/02/21 Marizol Chen PA-C [address] [facility] [address] [place] [address] Specialist Cardiology 10/02/21 documented as of this encounter
--- OUTSIDE RECORDS SUMMARY | 2024-07-09 08:52 | XMS_ITS | Encounter Summary ---
Author Organization [facility] Address [address] [place] [address] Care Team Providers Care Mailroom Clerk Name Role Phone Sandeep Rice MD Unavailable [phone] Marizol Chen PA-C Unavailable Kd Smith MD Primary Care Provider + Fanta Sarabia NP Primary Care Provider Unavail able [facility], Pcp [facility] Fanta Sarabia NP Primary Care Provider Unavail able Encounter Details Date Type Department Care Team Description 02/01/2022 Electric Fork Operator Report Medical Records [address] [place] [address] Fanta Sarabia NP Social History Tobacco Use [...] on filedocumented in this encounter Care Teams Mailroom Clerk Relationship Specialty Start Date End Date Kd Smith MD [address] [place] [address] PCP - General Internal Medicine 11/22/21 02/06/22 Fanta Sarabia NP [address] [place] [address] PCP - General Internal Medicine 02/07/22 03/15/22 [facility], Pcp [address] [place] [address] PCP - General Internal Medicine 03/16/22 05/15/22 Fanta Sarabia NP [address] [place] [address] PCP - General Internal Medicine 05/16/22 Sandeep Rice MD [address] [facility] [address] [place] [address] Specialist Cardiology 10/02/21 Marizol Chen PA-C [address] [facility] [address] [place] [address] Specialist Cardiology 10/02/21 documented as of this encounter
--- OUTSIDE RECORDS SUMMARY | 2024-07-09 08:52 | XMS_ITS | Encounter Summary ---
Author Organization [facility] Address [address] [place] [address] Care Team Providers Care Outside Barrel Lathe Operator Name Role Phone Lisa Sykes MD Primary Care Provider Breanne Dodd MD Primary Care Provider Sandeep Castle MD Unavailable [phone] Marizol Chen PA-C Unavailable Kd Smith MD Primary Care Provider + Fanta Sarabia NP Primary Care Provider Unavail able [facility]cp [facility] Fanta Sarabia MEDICAL OFFICE CLERK Primary Care Provider Unavail able Reason for Visit * Reason Onset Date Comments Shortness Of Breath 03/24/2018 Cough 03/24/2018 Encounter Details Date Type Department Care Team Description 03/24/2018 Telephone Adult [address] [phone] Lisa Sykes MD Shortness Of Breath; Cough Social History Tobacco Use Types Packs/Day Years [...] encounter Miscellaneous Notes * Telephone Encounter - Rosita Johnson L.P.N. - 03/24/2018 10:43 AM EST Spoke with pt ,she has been seen in a walk in clinic and was told she had pneumonia ,then she stilldid not feel better went to er where she was treated with updrafts,pred ,antibiotic,today she estefani of cough ,wheezing and sob,pt is audibly sob while talking on phone ,advised to return to er shewill go back to * Telephone Encounter - Cait Ashley - 03/24/2018 10:26 AM EST Symptoms patient is presenting: Patient states she is having problems with her asthma, shortness ofbreath and cough. She ahs been to urgent care and [facility] and not feeling better. If pain or injury related was it due to an accident at work or from a motor vehicle accident? NO If yes, gather 3rd alliance party insurance information Date of accident/Injury: n/a How long has patient had these symptoms?: a few weeks PCP: Lisa Sykes Payor: [employer] / Plan: HMO $20 [place] 1500 / Product Type: HMO [id number] documented in this encounter Plan of Treatment Not on file documented as of this encounter Visit Diagnoses Not on filedocumented in this encounter Care Teams Outside Barrel Lathe Operator Relationship Specialty Start Date End Date Lisa Sykes MD PCP - General 07/24/10 01/18/21 Breanne Coats MD PCP - General Internal Medicine 01/19/21 11/21/21 Kd Smith MD [address] [place] [address] PCP - General Internal Medicine 11/22/21 02/06/22 Fanta Sarabia NP [address] [place] [address] PCP - General Internal Medicine 02/07/22 03/15/22 Clare Kelly [address] [place] [address] PCP - General Internal Medicine 03/16/22 05/15/22 Fanta Sarabia, NICHOLAS [address] [place] [address] PCP - General Internal Medicine 05/16/22 Sandeep Rice MD [address] [address] Specialist Cardiology 10/02/21 Marizol Chen PA-C [address] [address] Specialist Cardiology 10/02/21 documented as of this encounter
--- OUTSIDE RECORDS SUMMARY | 2024-07-09 08:52 | XMS_ITS | Encounter Summary ---
Author Organization [facility] [employer] [facility] Address [address] [place] [address] Care Team Providers Care Wood Polisher Name Role Phone Breanne Coats MD Primary Care Provider Sandeep Castle MD Unavailable [phone] Marizol Chen PA-C Unavailable Kd Smith MD Primary Care Provider + Fanta Sarabia NP Primary Care Provider Unavail able [facility], Pcp [facility] Fanta Sarabia HUMAN SERVICES WORKER Primary Care Provider Unavail able Encounter Details Date Type Department Care Team Description 10/27/2021 Hospital Medical Records [address] [place] [address] Dale Mann, DO Social History Tobacco Use Types Packs/Day Years [...] filedocumented in this encounter Care Teams Wood Polisher Relationship Specialty Start Date End Date Breanne Coats MD PCP - General Internal Medicine 01/19/21 11/21/21 Kd Smith MD [address] [place] [address] [id number] PCP - General Internal Medicine 11/22/21 02/06/22 Fanta Sarabia NP [address] [place] [address] PCP - General Internal Medicine 02/07/22 03/15/22 [facility], Pcp [address] [place] [address] PCP - General Internal Medicine 03/16/22 05/15/22 Fanta Sarabia NP [address] [place] [address] PCP - General Internal Medicine 05/16/22 Sandeep Rice MD 300 [facility] [address] [place] [address] Specialist Cardiology 10/02/21 Marizol Chen PA-C [address] [facility] [address] [place] [address] Specialist Cardiology 10/02/21 documented as of this encounter
--- OUTSIDE RECORDS SUMMARY | 2024-07-09 08:52 | XMS_ITS | Encounter Summary ---
Author Organization [facility] Address [address] [place] [address] Care Team Providers Care Cone Tender Name Role Phone Lisa Sykes MD Primary Care Provider Breanne Dodd MD Primary Care Provider Sandeep Castle MD Unavailable [phone] Marizol Chen PA-C Unavailable Kd Smith MD Primary Care Provider + Fanta Sarabia NP Primary Care Provider Unavail [facility] Primary Care Provider [facility] Fanta Sarabia LOGGING CREW SUPERVISOR Primary Care Provider Unavail [facility] Encounter Details Date Type Department Care Team Description 12/16/2012 Touch Up Painter Report Medical Records [address] [place] [address] Ruben Sandoval Social History Tobacco Use Types [...] on filedocumented in this encounter Care Teams Cone Tender Relationship Specialty Start Date End Date Lisa Sykes MD PCP - General 07/24/10 01/18/21 Breanne Coats MD PCP - General Internal Medicine 01/19/21 11/21/21 Kd Smith MD [address] [place] [address] PCP - General Internal Medicine 11/22/21 02/06/22 Fanta Sarabia NP [address] [place] [address] PCP - General Internal Medicine 02/07/22 03/15/22 [facility] Pcp [address] [place] [address] PCP - General Internal Medicine 03/16/22 05/15/22 Fanta Sarabia NP [address] [place] [address] PCP - General Internal Medicine 05/16/22 Sandeep Rice MD [address] [address] Specialist Cardiology 10/02/21 Marizol Chen PA-C [address] [address] Specialist Cardiology 10/02/21 documented as of this encounter
--- OUTSIDE RECORDS SUMMARY | 2024-07-09 08:52 | XMS_ITS | Encounter Summary ---
Author Organization [facility] Address [address] [place] [address] Care Team Providers Care Machine Set Up Technician Name Role Phone Lisa Sykes MD Primary Care Provider Breanne Dodd MD Primary Care Provider Sandeep Castle MD Unavailable [phone] Mraizol Chen PA-C Unavailable Kd Smith MD Primary Care Provider + Fanta Sarabia NP Primary Care Provider Unavail able [facility] Pcp [facility] Fanta Sarabia HAND TAPPER Primary Care Provider Unavail able Reason for Visit * Reason Onset Date Comments Fall 01/19/2015 Encounter Details Date Type Department Care Team Description 01/19/2015 Telephone Adult [address] [phone] Lisa Sykes MD Fall Social History Tobacco Use Types Packs/Day Years [...] Notes * Telephone Encounter - Milind Granger L.P.N. - 01/23/2015 4:28 PM EDT Patient went [facility] Did have an CT Declined appointment * Telephone Encounter - Jessi Davis R.N. - 01/19/2015 2:47 PM EDT Phone call returned, no answer, left message to return phone call. * Telephone Encounter - Camilla Gonzalez - 01/19/2015 12:04 PM EDT Symptoms patient is presenting: patient had a fall off her bed a couple of nights ago. She thinks she may have broken her nose. If pain or injury related was it due to an accident at work or from a motor vehicle accident? NO If yes, gather 3rd alliance party insurance information Date of accident/Injury: How long has patient had these symptoms?: couple of nights ago PCP: Lisa Sykes Payor: [employer] [facility] [employer] / Plan: Wooop[employer] $20 [place] 1 / Product Type: HMO [id number] documented in this encounter Plan of Treatment Not on file documented as of this encounter Visit Diagnoses Not on filedocumented in this encounter Care Teams Machine Set Up Technician Relationship Specialty Start Date End Date Lisa Sykes MD PCP - General 07/24/10 01/18/21 Breanne Coats MD PCP - General Internal Medicine 01/19/21 11/21/21 Kd Smiht MD [address] [place] [address] PCP - General Internal Medicine 11/22/21 02/06/22 Fanta Sarabia NP [address] [place] [address] PCP - General Internal Medicine 02/07/22 03/15/22 [facility], [address] [address] PCP - General Internal Medicine 03/16/22 05/15/22 Fanta Sarabia NP [address] [place] [address] PCP - General Internal Medicine 05/16/22 Sandeep Rice MD [address] [address] Specialist Cardiology 10/02/21 Marizol Chen PA-C [address] [address] Specialist Cardiology 10/02/21 documented as of this encounter
--- OUTSIDE RECORDS SUMMARY | 2024-07-09 08:52 | XMS_ITS | Encounter Summary ---
Author Organization [facility] Address [address] [place] [address] Care Team Providers Care Senior Qa Tester Name Role Phone Sandeep Rice MD Unavailable [phone] Marizol Chne PA-C Unavailable Kd Smith MD Primary Care Provider + Fanta Sarabia MOUNTING INSPECTOR Primary Care Provider Unavail able [facility], Pcp [facility] Fanta Sraabia NP Primary Care Provider Unavail able Encounter Details Date Type Department Care Team Description 12/01/2021 Tractor Trailer Driver Report Medical Records [address] [place] [address] Kd Smith MD [address] [place] [address] [phone] Social History Tobacco Use Types Packs/Day Years [...] on filedocumented in this encounter Care Teams Senior Qa Tester Relationship Specialty Start Date End Date Kd Smith MD [address] [place] [address] PCP - General Internal Medicine 11/22/21 02/06/22 Fanta Sarabia NP [address] [place] [address] PCP - General Internal Medicine 02/07/22 03/15/[address] [address] PCP - General Internal Medicine 03/16/22 05/15/22 Fanta Sarabia NP [address] [place] [address] PCP - General Internal Medicine 05/16/22 Sandeep Rice MD [address] [facility] [address] [place] [address] Specialist Cardiology 10/02/21 Marizol Chen PA-C [address] [facility] [address] [place] [address] Specialist Cardiology 10/02/21 documented as of this encounter
--- OUTSIDE RECORDS SUMMARY | 2024-07-09 08:53 | XMS_ITS | Encounter Summary ---
Author Organization [facility] Address [address] [place] [address] Care Team Providers Care Pci Security Consultant Name Role Phone Lisa Sykes MD Primary Care Provider Breanne Dodd MD Primary Care Provider Sandeep Castle MD Unavailable [phone] Marizol Chen PA-C Unavailable Kd Smith MD Primary Care Provider + Fanta Sarabia NP Primary Care Provider Unavail [facility] Primary Care Provider [facility] Fanta Sarabia DOOR ASSEMBLER Primary Care Provider Unavail [facility] Encounter Details Date Type Department Care Team Description 05/18/2019 Freight Adjuster Report Medical Records [address] [place] [address] Ana Fernández Social History Tobacco Use Types [...] on filedocumented in this encounter Care Teams Pci Security Consultant Relationship Specialty Start Date End Date Lisa Sykes MD PCP - General 07/24/10 01/18/21 Breanne Coats MD PCP - General Internal Medicine 01/19/21 11/21/21 Kd Smith MD [address] [place] [address] PCP - General Internal Medicine 11/22/21 02/06/22 Fanta Sarabia NP [address] [place] [address] PCP - General Internal Medicine 02/07/22 03/15/22 [facility], Pcp [address] [place] [address] PCP - General Internal Medicine 03/16/22 05/15/22 Fanta Sarabia NP [address] [place] [address] PCP - General Internal Medicine 05/16/22 Sandeep Rice MD [address] [address] Specialist Cardiology 10/02/21 Marizol Chen PA-C [address] [address] Specialist Cardiology 10/02/21 documented as of this encounter
--- OUTSIDE RECORDS SUMMARY | 2024-07-09 08:53 | XMS_ITS | Encounter Summary ---
Author Organization [facility] Address [address] [place] [address] Care Team Providers Care Animal Trainer Name Role Phone Lisa Sykes MD Primary Care Provider Breanne Dodd MD Primary Care Provider Sandeep Castle MD Unavailable [phone] Marizol Chen PA-C Unavailable Kd Smith MD Primary Care Provider + Fanta Sarabia NP Primary Care Provider Unavail able [facility] Pcp [facility] Fanta Sarabia HOME CARE AND HOME HEALTH AIDES TEACHER Primary Care Provider Unavail able Reason for Visit * Reason Onset Date Comments Faxed Refill 01/29/2019 Encounter Details Date Type Department Care Team Description 01/29/2019 Refill Adult Medicine [address] [phone] Lisa Sykes MD Faxed Refill Social History Tobacco Use Types Packs/Day Years [...] encounter Miscellaneous Notes * Telephone Encounter - Preeti Raphael M.A. - 01/29/2019 2:09 PM EDT Lab Results Component Value Date NA 137 01/08/2017 K 4.0 01/08/2017 CO2 29.5 01/08/2017 CL 96 01/08/2017 BUN 7 01/08/2017 CREAT 0.5 01/08/2017 CA 9.3 01/08/2017 GFR > 60 01/08/2017 * Telephone Encounter - Bonny Khoury - 01/29/2019 10:26 AM EDT Patient would like script to be: E-PRESCRIBED/FAXED TO PHARMACY WHEN WAS THE PATIENT'S LAST APPOINTMENT IN ADULT MEDICINE? 11/10/18 WHEN WAS THE LAST TIME THE PATIENT SAW THEIR PCP? 04/10/18 Does patient have an upcoming appointment? No-patient, will call back to book appointment (THE MEDICATION REQUESTED IS ON THE MED LIST ABOVE) All of the medications requested were on the CURRENT MEDS list Did you check the Pharmacy information above?: YES Patient wants: 30 -day supply Is this a mail order prescription request ? NO If the refill is from a FAXED refill request what is the RX # listed on the fax? N/A Patients current insurance carrier is: Payor: [facility] SELF FUNDED / Plan: HMO $20 [place] 1500 / Product Type: HMO [id number] documented in this encounter Plan of Treatment Not on file documented as of this encounter Visit Diagnoses Not on filedocumented in this encounter Care Teams Animal Trainer Relationship Specialty Start Date End Date Lisa Sykes MD PCP - General 07/24/10 01/18/21 Breanne Coats MD PCP - General Internal Medicine 01/19/21 11/21/21 Kd Smith MD [address] [place] [address] PCP - General Internal Medicine 11/22/21 02/06/22 Fanta Sarabia NP [address] [place] [address] PCP - General Internal Medicine 02/07/22 03/15/[address] [address] PCP - General Internal Medicine 03/16/22 05/15/22 Fanta Sarabia NP [address] [place] [address] PCP - General Internal Medicine 05/16/22 Sandeep Rice MD [address] [facility] [address] [place] [address] Specialist Cardiology 10/02/21 Marizol Chen PA-C [address] [facility] [address] [place] [address] Specialist Cardiology 10/02/21 documented as of this encounter
--- OUTSIDE RECORDS SUMMARY | 2024-07-09 08:53 | XMS_ITS | Encounter Summary ---
Author Organization [facility] Address [address] [place] [address] Care Team Providers Care Respiratory Assistant Name Role Phone Lisa Sykes MD Primary Care Provider Breanne Dodd MD Primary Care Provider Sandeep Castle MD Unavailable [phone] Marizol Chen PA-C Unavailable Kd Smith MD Primary Care Provider + Fanta Sarabia NP Primary Care Provider Unavail [facility] Primary Care Provider [facility] Fanta Sarabia SNOW RANGER Primary Care Provider Unavail [facility] Encounter Details Date Type Department Care Team Description 12/01/2013 Plane Tableman Report Medical Records [address] [place] [address] Ruben Sandoval Social History Tobacco Use Types [...] on filedocumented in this encounter Care Teams Respiratory Assistant Relationship Specialty Start Date End Date Lisa Sykes MD PCP - General 07/24/10 01/18/21 Breanne Coats MD PCP - General Internal Medicine 01/19/21 11/21/21 Kd Smith MD [address] [place] [address] PCP - General Internal Medicine 11/22/21 02/06/22 Fanta Sarabia NP [address] [place] [address] PCP - General Internal Medicine 02/07/22 03/15/22 [facility] Pcp [address] [place] [address] PCP - General Internal Medicine 03/16/22 05/15/22 Fanta Sarabia NP [address] [place] [address] PCP - General Internal Medicine 05/16/22 Sandeep Rice MD [address] [address] Specialist Cardiology 10/02/21 Marizol Chen PA-C [address] [address] Specialist Cardiology 10/02/21 documented as of this encounter
--- OUTSIDE RECORDS SUMMARY | 2024-07-09 08:53 | XMS_ITS | Encounter Summary ---
Author Organization [facility] Address [address] [place] [address] Care Team Providers Care Grease Renderer Name Role Phone Lisa Sykes MD Primary Care Provider Breanne Dodd MD Primary Care Provider Sandeep Castle MD Unavailable [phone] Marizol Chen PA-C Unavailable Kd Smith MD Primary Care Provider + Fanta Sarabia NP Primary Care Provider Unavail [facility] Primary Care Provider [facility] Fanta Sarabia KILN DRAWER Primary Care Provider Unavail [facility] Encounter Details Date Type Department Care Team Description 10/14/2014 Poultry Sexer Report Medical Records [address] [place] [address] Chinyere Mccoy MD Social History Tobacco Use Types Packs/Day [...] on filedocumented in this encounter Care Teams Grease Renderer Relationship Specialty Start Date End Date Lisa Sykes MD PCP - General 07/24/10 01/18/21 Breanne Coats MD PCP - General Internal Medicine 01/19/21 11/21/21 Kd Smith MD [address] [place] [address] PCP - General Internal Medicine 11/22/21 02/06/22 Fanta Sarabia NP [address] [place] [address] PCP - General Internal Medicine 02/07/22 03/15/22 [facility] Pcp [address] [place] [address] PCP - General Internal Medicine 03/16/22 05/15/22 Fanta Sarabia NP [address] [place] [address] PCP - General Internal Medicine 05/16/22 Sandeep Rice MD [address] [address] Specialist Cardiology 10/02/21 Marizol Chen PA-C [address] [address] Specialist Cardiology 10/02/21 documented as of this encounter
== END 2024-07-09 09:07 | disposition home or self-care (01) ==
LOC: HO.RHE 08:23
PROVIDERS: PCP Nurse Practitioner; Visit Provider Student in an Organized Health Care Education/Training Program
DX: M12.30 Palindromic rheumatism, unspecified site (principal); Z51.81 Encounter for therapeutic drug level monitoring; Z79.899 Other long term (current) drug therapy
CPT/HCPCS: 99214; G2211

== ENCOUNTER 2024-07-09 08:23 | Outpatient (REF) | payer MEDICARE, OTHER, SELFPAY ==
[2024-07-09 09:31] LABS: MANUAL DIFF FLAG NO
[2024-07-09 10:53] LABS: Hemoglobin 12.9 g/dl (12.0-16.0); Imm Gran Abs Auto 0.01 X10*3/uL (0.00-0.03); Imm Gran Pct Auto 0.4 % (0.0-0.4); Lymphocytes Absolute Auto 0.6 X10*3/uL (1.2-4.9); Lymphocytes Percent Auto 20.3 % (20-40); Mean Corpuscular HGB Conc 35.8 g/dl (31.0-35.0); Mean Corpuscular Hemoglobin 29.9 pg (27.0-33.0); Mean Corpuscular Volume 83.3 fL (80.0-98.0); Monocytes Absolute Auto 0.1 X10*3/uL (0.1-1.2); Monocytes Percent Auto 5.1 % (2-11); Neutrophils Absolute Auto 2.1 x10*3/uL (2.0-8.3); Neutrophils Percent Auto 74.2 % (45-73); Platelet Count 332 X10*3/uL (160-400); Red Blood Count 4.32 X10*6/uL (4.20-5.50); Red Cell Distribution Width 12.6 % (11.0-16.0); White Blood Count 2.8 X10*3/uL (4.8-10.8)
[2024-07-09 11:17] LABS: Alanine Aminotransferase 23 U/L (0-31); Albumin Level 4.2 g/dL (3.5-5.0); Alkaline Phosphatase 91 U/L (39-117); Anion Gap 14 (12-20); Aspartate Amino Transferase 25 U/L (5-31); Bilirubin Total 0.5 mg/dL (0.0-1.0); Blood Urea Nitrogen 10 mg/dL (9-16); C Reactive Protein 3.48 mg/dL (< or = 0.50); Calcium 9.3 mg/dL (8.4-10.2); Carbon Dioxide 24 mmol/L (22-29); Chloride 101 mmol/L (96-108); Estimated Glomerular Filt Rate > 60; Glucose Random 137 mg/dL (60-115); Potassium 4.3 mmol/L (3.3-5.1); Sodium 135 mmol/L (135-145); Total Protein 8.3 g/dL (6.5-8.0)
[2024-07-09 12:00] LABS: Erythrocyte Sedimentation Rate 53 MM/HR (0-20)
== END 2024-07-09 08:24 | disposition home or self-care (01) ==
LOC: HO.LAB 08:23
PROVIDERS: PCP Nurse Practitioner; Visit Provider Student in an Organized Health Care Education/Training Program
DX: M12.30 Palindromic rheumatism, unspecified site (principal); Z79.899 Other long term (current) drug therapy
CPT/HCPCS: 36415; 80053; 85025; 85652; 86140; 99212

== ENCOUNTER 2024-07-15 11:10 | Outpatient (REF) | payer OTHER, MEDICARE, SELFPAY ==
--- NOTE | ~2024-07-15 | XR_ITS ---
EXAMINATION: XR CHEST 2 VIEWS HISTORY: J44.9 - Chronic obstructive pulmonary disease, unspecified COMPARISON: Comparison is made with the prior examination dated 09/28/2021. FINDINGS: PA and lateral views of the chest are submitted. The lungs are expanded and clear. There is no pleural effusion, pneumothorax, or pulmonary vascular congestion. The heart is normal in size. The bones are intact. XR/XR chest 2V IMPRESSION: No acute cardiopulmonary abnormality. Electronically signed by: Raffi Dye MD 07/16/2024 07:03 AM EDT
== END 2024-07-15 11:11 | disposition home or self-care (01) ==
LOC: HO.XRAY 11:10
PROVIDERS: PCP Nurse Practitioner; Visit Provider Internal Medicine
DX: J44.9 Chronic obstructive pulmonary disease, unspecified (principal); J45.909 Unspecified asthma, uncomplicated; J40 Bronchitis, not specified as acute or chronic; Z79.899 Other long term (current) drug therapy
CPT/HCPCS: 71046; 99212

== ENCOUNTER 2024-07-15 11:10 | Outpatient (AMB) | payer MEDICARE, OTHER, SELFPAY ==
--- NOTE | 2024-07-15 11:23 | A.OFFVIS_ITS ---
Vital Signs 07/15/24 11:24 Height 5 ft 4.5 in Weight 123 lb 7.342 oz BMI 20.9 BP 130/62 Blood Pressure Location Lt brachial Position Sitting Pulse 82 Pulse Source Pulse Oximeter Pulse Oximetry (%) 97 Oxygen Delivery Method Room Air Intake Visit Reasons: asthma Intake Note: pt is here for follow up and states she has been sick, she is still coughing, exhausted, using nebulizer. Compliance Coordinator Required: No Allergies amoxicillin [Augmentin] Allergy (Severe, Verified 07/15/24 12:11) Vomitting clavulanic acid [Augmentin] Allergy (Severe, Verified 07/15/24 12:11) Vomitting Sulfa (Sulfonamide Antibiotics) [SULFA (SULFONAMIDE ANTIBIOTICS)] Allergy (Intermediate, Verified 07/15/24 12:11) HIVES Medication List - Last Reconciled 07/15/24 by Ana Fernández MD albuterol sulfate 90 mcg/actuation 2 puffs inhalation Q6H PRN alendronate 70 mg PO QWEEK carvedilol 25 mg PO BID diatrizoate franklin-diatrizoat sod 66-10 % (Gastrografin) 30 mL PO ONCE dupilumab (Dupixent) 300 mg subcut Q4W hydroxychloroquine 200 mg PO BID levothyroxine 88 mcg PO DAILY losartan 100 mg PO DAILY omeprazole 20 mg PO DAILY spironolactone 25 mg PO DAILY venlafaxine ER 300 mg PO DAILY Do you need a note to return to daycare/school/sports/work: No HPI HPI asthma: Details: This 68 years old female, very pleasant with a longstanding history of allergic rhinitis, bronchial asthma and eczema. She is nonsmoker. She is on Dupixent therapy for her fulminant eczema. Her nasal congestion and bronchial asthma had much improved with that therapy. She was not needing to use the rescue inhaler as much. Now about 3 weeks ago she had acute respiratory infection with low-grade fever chills and general body aches. After that she feels very weak, has more frequent cough, but still denies wheezing. She has been treated with 5 days course of prednisone and also doxycycline for 5 days. She comes today for follow-up over here. Claims that she still has some nasal congestion she still has frequent cough even though she is not bringing up much phlegm. And she still feels very tired. [facility] Medical History Bronchitis Takotsubo cardiomyopathy Breast cancer, right HTN (hypertension) Asthma COPD (chronic obstructive pulmonary disease) Allergic rhinitis Family History Sister No problems noted. Sister Rheumatoid arthritis Scleroderma Daughter Rheumatoid arthritis Social History Patient Tobacco Use Status: Former Tobacco user Years Smoked: 5 Review of Systems Const All systems reviewed & are unremarkable except as noted in HPI and below Eyes Reports no additional complaints ENT Reports nasal congestion (Only mild intermittent) Card Denies chest pain, Denies irregular heart rhythm and Denies leg edema Resp Reports as per HPI GI Reports heartburn (Sent GERD) Reports no additional complaints Musc Reports no additional complaints Skin/Breast Reports system reviewed and no additional complaints, except as documented Neuro Reports no additional complaints Psych Reports no additional complaints Physical Exam Vital Signs: Last Vital Signs Pulse 82 07/15/24 11:24 BP 130/62 07/15/24 11:24 Pulse Ox 97 07/15/24 11:24 Oxygen Delivery Method Room Air 07/15/24 11:24 BMI result Body Mass Index 20.9 Vital signs reviewed Physical Examination CONSTITUITIONAL Patient alert and cooperative. Well appearing and in no apparent painful distress HEENT Conjunctiva and sclera clear. Pupils equal round and reactive to light. No lymphadenopathy. CHEST/RESPIRATORY SYSTEM Normal respiratory effort and able to speak in complete sentences. coarse breath sounds bilaterally with veins scattered wheezing CARDIAC SYSTEM Regular rate and rhythm. S1 and S2 heard no murmurs. Radial pulses intact bilaterally MSK Hands: Good street light repairer strength bilaterally. No deformities noted. No synovitis noted to the MCPs, PIPs or DIPs. No tenderness to palpation of these joints. Wrists: Full range of motion at the wrists without pain. No tenderness to palpation or synovitis noted to the wrists. Elbows: Full range of motion without pain. No tenderness, weakness, swelling, increased warmth or erythema. Shoulders: Full range of motion without pain. No tenderness, weakness, swelling, increased warmth or erythema. Hips: Full range of motion without pain. Hip bursa: No tenderness to palpation Knees: Full range of motion. No tenderness, swelling, increased warmth or erythema.?No effusion or crepitations Ankles: Full range of motion. No tenderness, swelling, increased warmth or erythema.? Feet: Negative squeeze test. No tenderness to palpation or swelling of the MTPs. Tender points:?No tenderness to palpation of the bilateral trapezius, supraspinatus, greater trochanters, anterior costochondral junctions, bilateral gluteal areas, bilateral suboccipital muscle insertions SKIN Skin intact without rashes. Const General: healthy appearing and comfortable Orientation/consciousness: patient oriented x3 HEENT Head: Yes normal to inspection General nose exam: No nasal polyps present and No nasal discharge present Face and sinus: Yes sinuses nontender Mouth: oropharynx normal Throat: Yes posterior oropharynx normal Eyes General: appearance normal, both eyes and all related structures Neck Neck: Yes normal visual inspection, Yes no lymphadenopathy, Yes trachea midline and Yes no JVD Thyroid: Thyroid normal Chest Chest palpation & inspection: normal inspection of the chest, normal palpation of entire chest wall and no tenderness Resp Other: Percussion note resonant, has good and equal breath sounds on both sides. I heard a few crepitations over the right upper lobe anteriorly. No wheezes or rhonchi. Cardio Palpation: normal PMI Rate: regular rate Rhythm: regular rhythm Heart sounds: no gallops and no murmurs Peripheral pulses: Peripheral pulses 2+ throughout GI Palpation (GI): Soft to palpation, nontender, No hepatosplenomegaly present and no masses Auscultation: normal bowel sounds Back/Spine/Pelvis Thoracic/Lumbar Spine: thoracic and lumbar spine normal to inspection Skin General skin exam: no rashes or lesions noted Neuro General: patient oriented x3 and no focal motor deficits Cranial nerves: Yes CN's II-XII intact bilaterally Extrem General: Yes normal to inspection, Yes no clubbing, cyanosis or edema and Yes no calf tenderness Psych Appearance: grossly normal and well kempt Speech and movement: Normal speech and movement present Assessment & Plan Assessment & Plan (1) COPD (chronic obstructive pulmonary disease): Comment: PATIENT DOES HAVE MILD TO MODERATE DEGREE OF CHRONIC OBSTRUCTIVE AIRWAY DISORDER/ ASTHMA, She was doing much better and respiratory status had definitely improved with the use of Dupixent which was started for eczema. Now for the last 2 weeks he is having acute flu symptoms, and even though she has been treated with a course of prednisone and doxycycline she still feeling quite we can tired and still has some residual cough. Code(s): J44.9 - Chronic obstructive pulmonary disease, unspecified Category: Medical Plan: I ordered a chest x-ray to make sure that she does not have any residual pneumonia. * CHEST xRAY IS NEGATIVE FOR PNEUMONIA . Advised to continue using albuterol solution in the nebulizer Q 4-6 hours during the day, or use albuterol 2 puffs Q 4-6 hours when outdoors. Advised to drink plenty of fluids and do some breathing exercises. (2) Asthma: Comment: MILD INTERMITTENT , WELL CONTROLLED. Code(s): J45.909 - Unspecified asthma, uncomplicated Category: Medical Plan: As above under COPD (3) Allergic rhinitis: Comment: Very Well Controlled AT THIS TIME. Code(s): J30.9 - Allergic rhinitis, unspecified Category: Medical Plan: Dupixent therapy is helping She can still use Flonase spray b.i.d. p.r.n. OTC antihistaminics p.r.n. (4) Bronchitis: Comment: Post flu continued cough probably due to low-grade bronchitis. CHEST XRAY IS NEGATIVE FOR ANY INFILTERATE OR MASS Code(s): J40 - Bronchitis, not specified as acute or chronic Category: Medical Plan: Chest x-ray is ordered to make sure she does not have pneumonia Results as noted above . Patient is reassured . Orders: Orders XR chest 2V Today J40 - Bronchitis, not specified as acute or chronic, J44.9 - Chronic obstructive pulmonary disease, unspecified, J45.909 - Unspecified asthma, uncomplicated Medications: New albuterol sulfate 2.5 mg (3 mL) inhalation Q4-6H PRN 180 mL 2RF shortness of breath or wheezing 30 days Coding Level of Care Code Est Pt Level 3 (57283) Diagnoses COPD (chronic obstructive pulmonary disease) J44.9 Asthma J45.909 Allergic rhinitis J30.9 Bronchitis J40
[2024-07-15 11:24] VITALS: BP 130/62; PULSE 82; O2SAT 97; BMI 20.9
== END 2024-07-15 11:53 | disposition home or self-care (01) ==
LOC: HO.HPS 11:11
PROVIDERS: PCP Nurse Practitioner; Visit Provider Internal Medicine
DX: J45.909 Unspecified asthma, uncomplicated (principal)
CPT/HCPCS: 99213

== ENCOUNTER → 2024-07-15 12:03 | Outpatient (BNV) | payer OTHER, MEDICARE, SELFPAY | PROVIDERS: PCP Nurse Practitioner; Visit Provider Radiology Diagnostic Radiology | DX: J44.9 Chronic obstructive pulmonary disease, unspecified (principal) | CPT/HCPCS: 71046 ==

== ENCOUNTER 2024-08-05 09:56 | Outpatient (AMB) | payer OTHER, MEDICARE, SELFPAY ==
[2024-08-05 10:04] VITALS: BP 102/60; PULSE 75; O2SAT 99; BMI 21.0
--- NOTE | 2024-08-05 10:04 | A.OFFVIS_ITS ---
Vital Signs 08/05/24 10:04 Height 5 ft 4.5 in Weight 124 lb 8.979 oz BMI 21.0 BP 102/60 Blood Pressure Location Lt brachial Position Sitting Pulse 75 Pulse Source Pulse Oximeter Pulse Oximetry (%) 99 Oxygen Delivery Method Room Air Intake Visit Reasons: Asthma Intake Note: pt is here for follow up and feeling better than a few weeks ago. Dumpling Machine Operator Required: No Allergies amoxicillin [Augmentin] Allergy (Severe, Verified 08/05/24 10:16) Vomitting clavulanic acid [Augmentin] Allergy (Severe, Verified 08/05/24 10:16) Vomitting Sulfa (Sulfonamide Antibiotics) [SULFA (SULFONAMIDE ANTIBIOTICS)] Allergy (Intermediate, Verified 08/05/24 10:16) HIVES Medication List - Last Reconciled 08/05/24 by Ana Fernández MD albuterol sulfate 90 mcg/actuation 2 puffs inhalation Q6H PRN albuterol sulfate 2.5 mg (3 mL) inhalation Q4-6H PRN 30 days alendronate 70 mg PO QWEEK carvedilol 25 mg PO BID diatrizoate franklin-diatrizoat sod 66-10 % (Gastrografin) 30 mL PO ONCE dupilumab (Dupixent) 300 mg subcut Q4W hydroxychloroquine 200 mg PO BID levothyroxine 88 mcg PO DAILY losartan 100 mg PO DAILY omeprazole 20 mg PO DAILY spironolactone 25 mg PO DAILY venlafaxine ER 300 mg PO DAILY Do you need a note to return to daycare/school/sports/work: No HPI HPI Asthma: Details: Estefania is feeling much better, and is back to her baseline. She has only occasional cough and wheezing. She hardly needs to use the rescue inhaler or nebulizer. Continues to be on Dupixent 300 mg subQ q.4 weeks, which was started actually for her eczema but has helped to control her bronchial asthma. She is very active and can do her usual day-to-day work without getting short of breath. [facility] Medical History Bronchitis Takotsubo cardiomyopathy Breast cancer, right HTN (hypertension) Asthma COPD (chronic obstructive pulmonary disease) Allergic rhinitis Family History Sister No problems noted. Sister Rheumatoid arthritis Scleroderma Daughter Rheumatoid arthritis Social History Patient Tobacco Use Status: Former Tobacco user Years Smoked: 5 Review of Systems Const All systems reviewed & are unremarkable except as noted in HPI and below Eyes Reports no additional complaints ENT Reports nasal congestion (Only mild intermittent) Card Denies chest pain, Denies irregular heart rhythm and Denies leg edema Resp Reports as per HPI GI Reports heartburn (Sent GERD) Reports no additional complaints Musc Reports no additional complaints Skin/Breast Reports system reviewed and no additional complaints, except as documented Neuro Reports no additional complaints Psych Reports no additional complaints Physical Exam Vital Signs: Last Vital Signs Pulse 75 08/05/24 10:04 BP 102/60 08/05/24 10:04 Pulse Ox 99 08/05/24 10:04 Oxygen Delivery Method Room Air 08/05/24 10:04 BMI result Body Mass Index 21.0 Vital signs reviewed Physical Examination CONSTITUITIONAL Patient alert and cooperative. Well appearing and in no apparent painful distress HEENT Conjunctiva and sclera clear. Pupils equal round and reactive to light. No lymphadenopathy. CHEST/RESPIRATORY SYSTEM Normal respiratory effort and able to speak in complete sentences. coarse breath sounds bilaterally with veins scattered wheezing CARDIAC SYSTEM Regular rate and rhythm. S1 and S2 heard no murmurs. Radial pulses intact bilaterally MSK Hands: Good linux engineer strength bilaterally. No deformities noted. No synovitis noted to the MCPs, PIPs or DIPs. No tenderness to palpation of these joints. Wrists: Full range of motion at the wrists without pain. No tenderness to palpation or synovitis noted to the wrists. Elbows: Full range of motion without pain. No tenderness, weakness, swelling, increased warmth or erythema. Shoulders: Full range of motion without pain. No tenderness, weakness, swelling, increased warmth or erythema. Hips: Full range of motion without pain. Hip bursa: No tenderness to palpation Knees: Full range of motion. No tenderness, swelling, increased warmth or erythema.?No effusion or crepitations Ankles: Full range of motion. No tenderness, swelling, increased warmth or erythema.? Feet: Negative squeeze test. No tenderness to palpation or swelling of the MTPs. Tender points:?No tenderness to palpation of the bilateral trapezius, supraspi natus, greater trochanters, anterior costochondral junctions, bilateral gluteal areas, bilateral suboccipital muscle insertions SKIN Skin intact without rashes. Const General: healthy appearing and comfortable Orientation/consciousness: patient oriented x3 HEENT Head: Yes normal to inspection General nose exam: No nasal polyps present and No nasal discharge present Face and sinus: Yes sinuses nontender Mouth: oropharynx normal Throat: Yes posterior oropharynx normal Eyes General: appearance normal, both eyes and all related structures Neck Neck: Yes normal visual inspection, Yes no lymphadenopathy, Yes trachea midline and Yes no JVD Thyroid: Thyroid normal Chest Chest palpation & inspection: normal inspection of the chest, normal palpation of entire chest wall and no tenderness Resp Other: Percussion note resonant, has good and equal breath sounds on both sides. I heard a few crepitations over the right upper lobe anteriorly. No wheezes or rhonchi. Cardio Palpation: normal PMI Rate: regular rate Rhythm: regular rhythm Heart sounds: no gallops and no murmurs Peripheral pulses: Peripheral pulses 2+ throughout GI Palpation (GI): Soft to palpation, nontender, No hepatosplenomegaly present and no masses Auscultation: normal bowel sounds Back/Spine/Pelvis Thoracic/Lumbar Spine: thoracic and lumbar spine normal to inspection Skin General skin exam: no rashes or lesions noted Neuro General: patient oriented x3 and no focal motor deficits Cranial nerves: Yes CN's II-XII intact bilaterally Extrem General: Yes normal to inspection, Yes no clubbing, cyanosis or edema and Yes no calf tenderness Psych Appearance: grossly normal and well kempt Speech and movement: Normal speech and movement present Results Reviewed Results Reviewed: I noticed that she had CBC on 07/09 and WBC count was 2.8. This needs to be repeated. Assessment & Plan Assessment & Plan (1) Allergic rhinitis: Comment: Very Well Controlled AT THIS TIME. Does not need any active treatment. Code(s): J30.9 - Allergic rhinitis, unspecified Category: Medical Plan: as above . (2) COPD (chronic obstructive pulmonary disease): Comment: PATIENT DOES HAVE MILD TO MODERATE DEGREE OF CHRONIC OBSTRUCTIVE AIRWAY DISORDER/ ASTHMA, Recent acute exacerbation due to flu-like syndrome and bronchitis has completely resolved. Code(s): J44.9 - Chronic obstructive pulmonary disease, unspecified Category: Medical Plan: Continue with Dupixent therapy. Albuterol HFA 2 puffs Q 6 hours p.r.n. or alternatively may use albuterol solution in the nebulizer Q 6 hours p.r.n. Coding Level of Care Code Est Pt Level 3 (60386) Diagnoses Allergic rhinitis J30.9 COPD (chronic obstructive pulmonary disease) J44.9
--- OUTSIDE RECORDS SUMMARY | 2024-08-05 11:02 | XMS_ITS | Encounter Summary ---
[facility] Organization [facility] Address [address] [place] [address] Care Team Providers Care Hydrometeorologist Name Role Phone Lisa Sykes MD Primary Care Provider Unava Debbi Rojas MD Primary Care Provider Unavailable Breanne Coats MD Primary Care Provider Sandeep Castle MD Unavailable [phone] Marizol Chen PA-C Unavailable Kd Smith MD Primary Care Provider + Fanta Sarabia NP Primary Care Provider Unavail [facility] Primary Care Provider [facility] Fanta Sarabia NP Primary Care Provider Unavail [facility] Encounter Details Date Type Department Care Team Description 02/23/2010 Bounty Hunter Report Medical Records [address] [place] [id number] Chinyere Mccoy MD Social History Tobacco Use [...] on filedocumented in this encounter Care Teams Hydrometeorologist Relationship Specialty Start Date End Date Lisa Sykes MD PCP - General 07/24/10 01/18/21 Debbi To MD PCP - General 04/28/199307/23 Breanne Coats MD PCP - General Internal Medicine 01/19/21 11/21/21 Kd Smith MD [address] [place] [address] PCP - General Internal Medicine 11/22/21 02/06/22 Fanta Sarabia NP [address] [place] [address] PCP - General Internal Medicine 02/07/22 03/15/22 [facility] Pcp [address] [place], [place] [id number] PCP - General Internal Medicine 03/16/22 05/15/22 Fanta Sarabia NP [address] [place] [address] PCP - General Internal Medicine 05/16/22 Sandeep Rice MD [address] [place] [address] Specialist Cardiology 10/02/21 Marizol Chen PA-C [address] [place] [address] Specialist Cardiology 10/02/21 documented as of this encounter
--- OUTSIDE RECORDS SUMMARY | 2024-08-05 11:02 | XMS_ITS | Encounter Summary ---
[facility] Organization [facility] Address [address] [place] [address] Care Team Providers Care Instrumentation Technician Name Role Phone Lisa Sykes MD Primary Care Provider UnaDebbi Carter MD Primary Care Provider Unavailable Breanne Coats MD Primary Care Provider Sandeep Castle MD Unavailable Marizol Chen PA-C Unavailable Kd Smith MD Primary Care Provider + Fanta Sarabia NP Primary Care Provider Unavail [facility] Primary Care Provider [facility] Fanta Sarabia NP Primary Care Provider Unavail [facility] Encounter Details Date Type Department Care Team Description 03/29/2010 Qa Automation Engineer Report Medical Records [address] [place] [address] Kylie Wnog MD Social History Tobacco Use Types Packs/Day [...] on filedocumented in this encounter Care Teams Instrumentation Technician Relationship Specialty Start Date End Date Lisa Sykes MD PCP - General 07/24/10 01/18/21 Debbi To MD PCP - General 04/28/199307/23 Breanne Coats MD PCP - General Internal Medicine 01/19/21 11/21/21 Kd Smith MD [address] [place] [address] PCP - General Internal Medicine 11/22/21 02/06/22 Fanta Sarabia NP [address] [place] [address] PCP - General Internal Medicine 02/07/22 03/15/22 [facility] Pcp [address] [place] [address] PCP - General Internal Medicine 03/16/22 05/15/22 Fanta Sarabia NP [address] [place] [address] PCP - General Internal Medicine 05/16/22 Sandeep Rice MD [address] [place] [address] Specialist Cardiology 10/02/21 Marizol Chen PA-C [address] [place] [address] Specialist Cardiology 10/02/21 documented as of this encounter
--- OUTSIDE RECORDS SUMMARY | 2024-08-05 11:02 | XMS_ITS | Encounter Summary ---
Author Organization [facility] Address [address] [place] [address] Care Team Providers Care Violin Maker Hand Name Role Phone Lisa Sykes MD Primary Care Provider UnaDebbi Carter MD Primary Care Provider Unavailable Breanne Coats MD Primary Care Provider Sandeep Castle MD Unavailable [phone] Marizol Chen PA-C Unavailable Kd Smith MD Primary Care Provider + Fanta Sarabia NP Primary Care Provider Unavail [facility] Primary Care Provider [facility] Fanta Sarabia NP Primary Care Provider Unavail [facility] Encounter Details Date Type Department Care Team Description 11/01/2009 Assistant District Attorney Report Medical Records [address] [place] [address] Ruben Sandoval Social History Tobacco Use Types [...] on filedocumented in this encounter Care Teams Violin Maker Hand Relationship Specialty Start Date End Date Lisa Sykes MD PCP - General 07/24/10 01/18/21 Debbi To MD PCP - General 04/28/199307/23 Breanne Coats MD PCP - General Internal Medicine 01/19/21 11/21/21 Kd Smith MD [address] [place] [address] PCP - General Internal Medicine 11/22/21 02/06/22 Fanta Sarabia NP [address] [place] [address] PCP - General Internal Medicine 02/07/22 03/15/22 [facility] Pcp [address] [place] [address] PCP - General Internal Medicine 03/16/22 05/15/22 Fanta Sarabia NP [address] [place] [address] PCP - General Internal Medicine 05/16/22 Sandeep Rice MD [address] [place] [address] Specialist Cardiology 10/02/21 Marizol Chen PA-C [address] [place] [address] Specialist Cardiology 10/02/21 documented as of this encounter
--- OUTSIDE RECORDS SUMMARY | 2024-08-05 11:02 | XMS_ITS | Encounter Summary ---
Author Organization [facility] Address [address] [place] [address] Care Team Providers Care Dupligraph Operator Name Role Phone Lisa Sykes MD Primary Care Provider Debbi Dowell MD Primary Care Provider Unavailable Breanne Coats MD Primary Care Provider UnaSandeep Lambert MD Unavailable [phone] Marizol Chen PA-C Unavailable Kd Smith MD Primary Care Provider + Fanta Sarabia NP Primary Care Provider Unavail able [facility]cp [facility] Fatna Sarabia NP Primary Care Provider Unavail able Reason for Visit * Reason Comments Faxed Refill FAX Encounter Details Date Type Department Care Team Description 08/26/2002 Telephone Adult Medicine [address] [address] Andrei Scott MD Faxed Refill (FAX) Social [...] [facility] () documented in this encounter Plan of Treatment Not on file documented as of this encounter Visit Diagnoses Not on filedocumented in this encounter Care Teams Dupligraph Operator Relationship Specialty Start Date End Date Lisa Sykes MD PCP - General 07/24/10 01/18/21 Carlos-Debbi Rhodes MD PCP - General 04/28/199307/23 Breanne Coats MD PCP - General Internal Medicine 01/19/21 11/21/21 Kd Smith MD [address] [place] [address] PCP - General Internal Medicine 11/22/21 02/06/22 Fanta Sarabia NP [address] [place] [address] PCP - General Internal Medicine 02/07/22 03/15/[address] [address] PCP - General Internal Medicine 03/16/22 05/15/22 Fanta Sarabia, NICHOLAS [address] [place] [address] PCP - General Internal Medicine 05/16/22 Sandeep Rice MD [address] [address] Specialist Cardiology 10/02/21 Marizol Chen PA-C [address] [facility] [address] [place] [address] Specialist Cardiology 10/02/21 documented as of this encounter
--- OUTSIDE RECORDS SUMMARY | 2024-08-05 11:02 | XMS_ITS | Encounter Summary ---
Author Organization [facility] Address [address] [place] [address] Care Team Providers Care Sap Data Analyst Name Role Phone Lisa Sykes MD Primary Care Provider UnaDebbi Carter MD Primary Care Provider Unavailable Breanne Coats MD Primary Care Provider Sandeep Castle MD Unavailable [phone] Marizol Chen PA-C Unavailable Kd Smith MD Primary Care Provider + Fanta Sarabia NP Primary Care Provider Unavail [facility] Primary Care Provider [facility] Fanta Sarabia NP Primary Care Provider Unavail [facility] Encounter Details Date Type Department Care Team Description 05/12/2010 Painting Machine Operator Report Medical Records [address] [place] [address] Ruben Sandoval Social History Tobacco Use Types [...] on filedocumented in this encounter Care Teams Sap Data Analyst Relationship Specialty Start Date End Date Lisa Sykes MD PCP - General 07/24/10 01/18/21 Debbi To MD PCP - General 04/28/199307/23 Breanne Coats MD PCP - General Internal Medicine 01/19/21 11/21/21 Kd Smith MD [address] [place] [address] PCP - General Internal Medicine 11/22/21 02/06/22 Fanta Sarabia NP [address] [place] [address] PCP - General Internal Medicine 02/07/22 03/15/22 [facility] Pcp [address] [place] [address] PCP - General Internal Medicine 03/16/22 05/15/22 Fanta Sarabia NP [address] [place] [address] PCP - General Internal Medicine 05/16/22 Sandeep Rice MD [address] [place] [address] Specialist Cardiology 10/02/21 Marizol Chen PA-C [address] [place] [address] Specialist Cardiology 10/02/21 documented as of this encounter
--- OUTSIDE RECORDS SUMMARY | 2024-08-05 11:02 | XMS_ITS | Encounter Summary ---
Author Organization [facility] Address [address] [place] [address] Care Team Providers Care Cement Car Dumper Name Role Phone Lisa Sykes MD Primary Care Provider Breanne Dodd MD Primary Care Provider Sandeep Castle MD Unavailable [phone] Marizol Chen PA-C Unavailable Kd Smith MD Primary Care Provider + Fanta Sarabia NP Primary Care Provider Unavail [facility] Primary Care Provider [facility] Fanta Sarabia SPACE SCIENCES DIRECTOR Primary Care Provider Unavail [facility] Encounter Details Date Type Department Care Team Description 08/01/2010 Old Medical Records Medical Records [address] [place] [address] Abstract, Provider Social History Tobacco Use Types [...] on filedocumented in this encounter Care Teams Cement Car Dumper Relationship Specialty Start Date End Date Lisa Sykes MD PCP - General 07/24/10 01/18/21 Breanne Coats MD PCP - General Internal Medicine 01/19/21 11/21/21 Kd Smith MD [address] [place] [address] PCP - General Internal Medicine 11/22/21 02/06/22 Fanta Sarabia NP [address] [place] [address] PCP - General Internal Medicine 02/07/22 03/15/22 [facility], Pcp [address] [place] [address] PCP - General Internal Medicine 03/16/22 05/15/22 Fanta Sarabia NP [address] [place] [address] PCP - General Internal Medicine 05/16/22 Sandeep Rice MD [address] [address] Specialist Cardiology 10/02/21 Marizol Chen PA-C [address] [address] Specialist Cardiology 10/02/21 documented as of this encounter
--- OUTSIDE RECORDS SUMMARY | 2024-08-05 11:02 | XMS_ITS | Encounter Summary ---
Author Organization [facility] Address [address] [place] [address] Care Team Providers Care Inside Sales Consultant Name Role Phone Lisa Sykes MD Primary Care Provider Unava Debbi Rojas MD Primary Care Provider Unavailable Breanne Coats MD Primary Care Provider Sandeep Castle MD Unavailable [phone] Marizol Chen PA-C Unavailable Kd Smith MD Primary Care Provider + Fanta Sarabia NP Primary Care Provider Unavail [facility] F[facility] Sarabia NP Primary Care Provider Unavail [facility] Encounter Details Date Type Department Care Team Description 01/10/2010 Recyclable Materials Distributor Report Medical Records [address] [place] [address] Chinyere Mccoy MD Social History Tobacco Use [...] on filedocumented in this encounter Care Teams Inside Sales Consultant Relationship Specialty Start Date End Date Lisa Sykes MD PCP - General 07/24/10 01/18/21 Debbi To MD PCP - General 04/28/199307/23 Breanne Coats MD PCP - General Internal Medicine 01/19/21 11/21/21 Kd Smith MD [address] [place] [address] PCP - General Internal Medicine 11/22/21 02/06/22 Fanta Sarabia NP [address] [place] [address] PCP - General Internal Medicine 02/07/22 03/15/22 [facility] Pcp [address] [place], [place] [address] PCP - General Internal Medicine 03/16/22 05/15/22 Fanta Sarabia NP [address] [place] [address] PCP - General Internal Medicine 05/16/22 Sandeep Rice MD [address] [place] [address] Specialist Cardiology 10/02/21 Marizol Chen PA-C [address] [place] [address] Specialist Cardiology 10/02/21 documented as of this encounter
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
--- OUTSIDE RECORDS SUMMARY | 2024-08-05 11:02 | XMS_ITS | Encounter Summary ---
Author [facility] Address [address] [place] [address] Care Team Providers Care Motor Boss Name Role Phone Lisa Sykes MD Primary Care Provider Breanne Dodd MD Primary Care Provider Sandeep Castle MD Unavailable [phone] Marizol Chen PA-C Unavailable Kd Smith MD Primary Care Provider + Fanta Sarabia NP Primary Care Provider Unavail able [facility] Pcp [facility] Fanta Sarabia TELECOMMUNICATIONS MANAGER Primary Care Provider Unavail able Encounter Details Date Type Department Care Team Description 01/07/2020 Business Doc Medical Records [address] [place] [id number] Abstract, Provider Social History Tobacco Use Types [...] on filedocumented in this encounter Care Teams Motor Boss Relationship Specialty Start Date End Date Sykes, Lisa, MD PCP - General 07/24/10 01/18/21 Breanne Coats MD PCP - General Internal Medicine 01/19/21 11/21/21 Kd Smith MD [address] [place] [address] PCP - General Internal Medicine 11/22/21 02/06/22 Fanta Sarabia NP [address] [place] [address] PCP - General Internal Medicine 02/07/22 03/15/22 [place] 2246220 PCP - General Internal Medicine 03/16/22 05/15/22 Fanta Sarabia NP [address] [place] [address] PCP - General Internal Medicine 05/16/22 Sandeep Rice MD [address] [address] Specialist Cardiology 10/02/21 Marizol Chen PA-C [address] [address] Specialist Cardiology 10/02/21 documented as of this encounter
--- OUTSIDE RECORDS SUMMARY | 2024-08-05 11:02 | XMS_ITS | Encounter Summary ---
[facility] Address [address] [place] [address] Care Team Providers Care Bacteriologist Dairy Name Role Phone Lisa Sykes MD Primary Care Provider UnaDebbi Carter MD Primary Care Provider Unavailable Breanne Coats MD Primary Care Provider Sandeep Castle MD Unavailable [phone] Marizol Chen PA-C Unavailable Kd Smith MD Primary Care Provider + Fanta Sarabia NP Primary Care Provider Unavail [facility] Primary Care Provider [facility] Fanta Sarabia NP Primary Care Provider Unavail [facility] Encounter Details Date Type Department Care Team Description 10/13/2009 Private Chef Report Medical Records [address] [place] [address] Kylie Wong MD Social History Tobacco Use [...] on filedocumented in this encounter Care Teams Bacteriologist Dairy Relationship Specialty Start Date End Date Lisa Sykes MD PCP - General 07/24/10 01/18/21 Debbi To MD PCP - General 04/28/199307/23 Breanne Coats MD PCP - General Internal Medicine 01/19/21 11/21/21 Kd Smith MD [address] [place] [address] PCP - General Internal Medicine 11/22/21 02/06/22 Fanta Sarabia NP [address] [place] [address] PCP - General Internal Medicine 02/07/22 03/15/22 [facility] Pcp [address] [place] [address] PCP - General Internal Medicine 03/16/22 05/15/22 Fanta Sarabia NP [address] [place] [address] PCP - General Internal Medicine 05/16/22 Sandeep Rice MD [address] [place] [address] Specialist Cardiology 10/02/21 Marizol Chen PA-C [address] [place] [address] Specialist Cardiology 10/02/21 documented as of this encounter
--- OUTSIDE RECORDS SUMMARY | 2024-08-05 11:03 | XMS_ITS | Encounter Summary ---
Author Organization [facility] Address [address] [place] [address] Care Team Providers Care Seating Upholsterer Name Role Phone Lisa Sykes MD Primary Care Provider Breanne Dodd MD Primary Care Provider Sandeep Castle MD Unavailable [phone] Marizol Chen PA-C Unavailable Kd Smith MD Primary Care Provider + Fanta Sarabia NP Primary Care Provider Unavail able [facility] Pcp [facility] Fanta Sarabia ENVELOPE MAKER Primary Care Provider Unavail able Encounter Details Date Type Department Care Team Description 02/23/2020 Hospital Medical Records [address] [place] [address] Lewis Rdz DO Social History Tobacco Use Types Packs/Day [...] have Coronavirus / COVID-19? No / Unsure 01/27/2020 12:48 PM EDT documented as of this encounter Plan of Treatment Not on file documented as of this encounter Visit Diagnoses Not on filedocumented in this encounter Care Teams Seating Upholsterer Relationship Specialty Start Date End Date Lisa Sykes MD PCP - General 07/24/10 01/18/21 Breanne Coats MD PCP - General Internal Medicine 01/19/21 11/21/21 Kd Smith MD [address] [place] [address] PCP - General Internal Medicine 11/22/21 02/06/22 Fanta Sarabia NP [address] [place] [address] PCP - General Internal Medicine 02/07/22 03/15/[address] [address] PCP - General Internal Medicine 03/16/22 05/15/22 Fanta Sarabia NP [address] [place] [address] PCP - General Internal Medicine 05/16/22 Sandeep Rice MD [address] [address] Specialist Cardiology 10/02/21 Marizol Chen PA-C [address] [facility] [address] [place] [address] Specialist Cardiology 10/02/21 documented as of this encounter
--- OUTSIDE RECORDS SUMMARY | 2024-08-05 11:03 | XMS_ITS | Encounter Summary ---
Author Organization [facility] Address [address] [place] [address] Care Team Providers Care Timber Bucker Name Role Phone Lisa Sykes MD Primary Care Provider Breanne Dodd MD Primary Care Provider Sandeep Castle MD Unavailable [phone] Marizol Chen PA-C Unavailable Kd Smith MD Primary Care Provider + Fanta Sarabia NP Primary Care Provider Unavail able [facility] Pcp Primary Care Provider [facility] Fanta Sarabia HAM ROLLING MACHINE OPERATOR Primary Care Provider Unavail able Reason for Visit * Reason Onset Date Comments refill request 05/20/2016 Encounter Details Date Type Department Care Team Description 05/20/2016 Refill Adult Urgent Care - [address] [phone] Lisa Sykes MD refill request Social History [...] on med list. Gets it from her tong carrier. Send to [facility] [place] documented in this encounter Plan of Treatment Not on file documented as of this encounter Visit Diagnoses Not on filedocumented in this encounter Care Teams Timber Bucker Relationship Specialty Start Date End Date Lisa Sykes MD PCP - General 07/24/10 01/18/21 Breanne Coats MD PCP - General Internal Medicine 01/19/21 11/21/21 Kd Smith MD [address] [place] [address] PCP - General Internal Medicine 11/22/21 02/06/22 Fanta Sarabia NP [address] [place] [address] PCP - General Internal Medicine 02/07/22 03/15/22 [facility], Pcp [address] [place] [address] PCP - General Internal Medicine 03/16/22 05/15/22 Fanta Sarabia NP [address] [place] [address] PCP - General Internal Medicine 05/16/22 Sandeep Rice MD [address] [address] Specialist Cardiology 10/02/21 Marizol Chen PA-C 300 [facility] [address] [place] [address] Specialist Cardiology 10/02/21 documented as of this encounter
--- OUTSIDE RECORDS SUMMARY | 2024-08-05 11:03 | XMS_ITS | Encounter Summary ---
Author Organization [facility] Address [address] [place] [address] Care Team Providers Care Power Originator Name Role Phone Lisa Sykes MD Primary Care Provider Breanne Dodd MD Primary Care Provider Sandeep Castle MD Unavailable [phone] Marizol Chen PA-C Unavailable Kd Smith MD Primary Care Provider + Fanta Sarabia NP Primary Care Provider Unavail [facility] Primary Care Provider [facility] Fanta Sarabia ENTERTAINER OR VARIETY ARTIST Primary Care Provider Unavail [facility] [place] Encounter Details Date Type Department Care Team Description 12/01/2010 Night Triage Doc Medical Records [address] [place] [address] Abstract, Provider Social History Tobacco Use Types [...] filedocumented in this encounter Care Teams Power Originator Relationship Specialty Start Date End Date Lisa Sykes MD PCP - General 07/24/10 01/18/21 Breanne Coats MD PCP - General Internal Medicine 01/19/21 11/21/21 Kd Smith MD [address] [place] [address] PCP - General Internal Medicine 11/22/21 02/06/22 Fanta Sarabia NP [address] [place] [address] PCP - General Internal Medicine 02/07/22 03/15/22 [facility], Pcp [address] [place] [address] PCP - General Internal Medicine 03/16/22 05/15/22 Fanta Sarabia NP [address] [place] [address] PCP - General Internal Medicine 05/16/22 Sandeep Rice MD [address] [address] Specialist Cardiology 10/02/21 Marizol Chen PA-C [address] [address] Specialist Cardiology 10/02/21 documented as of this encounter
--- OUTSIDE RECORDS SUMMARY | 2024-08-05 11:03 | XMS_ITS | Encounter Summary ---
Author Organization [facility] Address [address] [place] [address] Care Team Providers Care Windows Desktop Support Name Role Phone Breanne Coats MD Primary Care Provider Sandeep Castle MD Unavailable [phone] Marizol Chen PA-C Unavailable Kd Smith MD Primary Care Provider + Fanta Sarabia NP Primary Care Provider Unavail able [facility], Pcp [facility] Fanat Sarabia COW BUYER Primary Care Provider Unavail able Reason for Visit * Reason Onset Date Comments er follow up 03/01/2021 Encounter Details Date Type Department Care Team Description 03/01/2021 Telephone Adult [address] [phone] Breanne Coats MD er follow up Social [...] Care Which hospital was patient seen at?: [facility] What was the injury or problem the [...] on filedocumented in this encounter Care Teams Windows Desktop Support Relationship Specialty Start Date End Date Breanne Coats MD PCP - General Internal Medicine 01/19/21 11/21/21 Kd Smith MD [address] [place] [address] PCP - General Internal Medicine 11/22/21 02/06/22 Fanat Sarabia NP [address] [place] [address] PCP - General Internal Medicine 02/07/22 03/15/22 [facility], Pcp [address] [place] [address] PCP - General Internal Medicine 03/16/22 05/15/22 Fanta Sarabia NP [address] [place] [address] PCP - General Internal Medicine 05/16/22 Sandeep Rice MD [address] [place] [address] Specialist Cardiology 10/02/21 Marizol Chen PA-C [address] [facility] [address] [place] [address] Specialist Cardiology 10/02/21 documented as of this encounter
--- OUTSIDE RECORDS SUMMARY | 2024-08-05 11:03 | XMS_ITS | Encounter Summary ---
[facility] Organization [facility] Address [address] [place] [address] Care Team Providers Care Post Anesthesia Room Nurse Name Role Phone Lisa Sykes MD Primary Care Provider Breanne Dodd MD Primary Care Provider Sandeep Castle MD Unavailable [phone] Marizol Chen PA-C Unavailable Kd Smith MD Primary Care Provider + Fanta Sarabia NP Primary Care Provider Unavail [facility] Primary Care Provider [facility] Fanta Sarabia FASHION MERCHANDISER Primary Care Provider Unavail [facility] Encounter Details Date Type Department Care Team Description 05/18/2019 Sand And Gravel Plant Operator Report Medical Records [address] [place] [address] Ana Fernández Social History Tobacco Use Types [...] on filedocumented in this encounter Care Teams Post Anesthesia Room Nurse Relationship Specialty Start Date End Date Lisa Sykes MD PCP - General 07/24/10 01/18/21 Breanne Coats MD PCP - General Internal Medicine 01/19/21 11/21/21 Kd Smith MD [address] [place] [address] PCP - General Internal Medicine 11/22/21 02/06/22 Fanta Sarabia NP [address] [place] [address] PCP - General Internal Medicine 02/07/22 03/15/22 [facility], Pcp [address] [place] [address] PCP - General Internal Medicine 03/16/22 05/15/22 Fanta Sarabia NP [address] [place] [address] PCP - General Internal Medicine 05/16/22 Sandeep Rice MD [address] [address] Specialist Cardiology 10/02/21 Marizol Chen PA-C [address] [address] Specialist Cardiology 10/02/21 documented as of this encounter
--- OUTSIDE RECORDS SUMMARY | 2024-08-05 11:03 | XMS_ITS | Encounter Summary ---
Author Organization [facility] Address [address] [place] [address] Care Team Providers Care Bass Singer Name Role Phone Lisa Sykes MD Primary Care Provider Breanne Dodd MD Primary Care Provider Sandeep Castle MD Unavailable [phone] Marizol Chen PA-C Unavailable Kd Smith MD Primary Care Provider + Fanta Sarabia NP Primary Care Provider Unavail able [facility], Pcp [facility] Fanta Sarabia CLIPPER AND TURNER Primary Care Provider Unavail able Reason for Visit * Reason Comments E-prescribe Rx Request Encounter Details Date Type Department Care Team Description 04/03/2017 Refill Adult Medicine [address] [phone] Elisabeth Christian PA-C [address] [place] [address] [phone] E-prescribe Rx Request Social History Tobacco Use [...] NO Patients current insurance carrier is: Payor: [employer]ARWIN / Plan: [employer] $20 [place] 1 / Product Type: HMO Yuk-foz-Wcltgck documented in this encounter Plan of Treatment Not on file documented as of this encounter Visit Diagnoses Not on filedocumented in this encounter Care Teams Bass Singer Relationship Specialty Start Date End Date Lisa Sykes MD PCP - General 07/24/10 01/18/21 Breanne Coats MD PCP - General Internal Medicine 01/19/21 11/21/21 Kd Smith MD [address] [place] [address] PCP - General Internal Medicine 11/22/21 02/06/22 Fanta Sarabia NP [address] [place] [address] PCP - General Internal Medicine 02/07/22 03/15/22 Clare Kelly [address] [place] [address] PCP - General Internal Medicine 03/16/22 05/15/22 Fanta Sarabia NP [address] [place] [address] PCP - General Internal Medicine 05/16/22 Sandeep Rice MD [address] [address] Specialist Cardiology 10/02/21 Marizol Chen PA-C [address] [address] Specialist Cardiology 10/02/21 documented as of this encounter
--- OUTSIDE RECORDS SUMMARY | 2024-08-05 11:03 | XMS_ITS | Encounter Summary ---
Author Organization [facility] Address [address] [place] [address] Care Team Providers Care Powder Mill Operator Name Role Phone Lisa Sykes MD Primary Care Provider Breanne Dodd MD Primary Care Provider Sandeep Castle MD Unavailable [phone] Marizol Chen PA-C Unavailable Kd Smith MD Primary Care Provider + Fanta Sarabia NP Primary Care Provider Unavail able [facility], Pcp [facility] Fanta Sarabia TREATING PLANT SUPERVISOR Primary Care Provider Unavail able Reason for Visit * Reason Comments E-prescribe Rx Request Encounter Details Date Type Department Care Team Description 12/15/2016 Refill Adult Medicine [address] [phone] Elisabeth Christian PA-C [address] [place] [address] E-prescribe Rx Request Social History Tobacco Use [...] YES Patients current insurance carrier is: Payor: [employer]AY / Plan: [employer] $20 [place] 1 / Product Type: HMO Seq-fwe-Gawztrx documented in this encounter Plan of Treatment Not on file documented as of this encounter Visit Diagnoses Not on filedocumented in this encounter Care Teams Powder Mill Operator Relationship Specialty Start Date End Date Lisa Sykes MD PCP - General 07/24/10 01/18/21 Breanne Coats MD PCP - General Internal Medicine 01/19/21 11/21/21 Kd Smith MD [address] [place] [address] PCP - General Internal Medicine 11/22/21 02/06/22 Fanta Sarabia NP [address] [place] [address] PCP - General Internal Medicine 02/07/22 03/15/22 Clare Kelly [address] [place] [address] PCP - General Internal Medicine 03/16/22 05/15/22 Fanta Sarabia NP [address] [place] [address] PCP - General Internal Medicine 05/16/22 Sandeep Rice MD [address] [address] Specialist Cardiology 10/02/21 Marizol Chen PA-C [address] [address] Specialist Cardiology 10/02/21 documented as of this encounter
--- OUTSIDE RECORDS SUMMARY | 2024-08-05 11:03 | XMS_ITS | Encounter Summary ---
Author Organization [facility] Address [address] [place] [address] Care Team Providers Care Tool Designer Name Role Phone Lisa Sykes MD Primary Care Provider Breanne Dodd MD Primary Care Provider Sandeep Castle MD Unavailable [phone] Marizol Chen PA-C Unavailable Kd Smith MD Primary Care Provider + Fanta Sarabia NP Primary Care Provider Unavail able [facility] Fanta Sarabia TRAINING PROGRAM DEVELOPER Primary Care Provider Unavail able Encounter Details Date Type Department Care Team Description 02/23/2020 Orders Only Medical Records [address] [place] [address] Lewis Rdz DO Social History Tobacco Use [...] Date/Time Associated Diagnosis Comments OUTSIDE LAB Routine 02/21/2020 documented in this encounter Results * OUTSIDE LAB (02/21/2020) Lewis Rdz LAB documented in this encounter Visit Diagnoses Not on filedocumented in this encounter Care Teams Tool Designer Relationship Specialty Start Date End Date Lisa Sykes MD PCP - General 07/24/10 01/18/21 Breanne Coats MD PCP - General Internal Medicine 01/19/21 11/21/21 Kd Smith MD [address] [place] [address] PCP - General Internal Medicine 11/22/21 02/06/22 Fanta Sarabia NP [address] [place] [address] PCP - General Internal Medicine 02/07/22 03/15/[address] [address] PCP - General Internal Medicine 03/16/22 05/15/22 Fanta Sarabia, NICHOLAS [address] [place] [address] PCP - General Internal Medicine 05/16/22 Sandeep Rice MD [address] [address] Specialist Cardiology 10/02/21 Marizol Chen PA-C [facility] [address] [place] [address] Specialist Cardiology 10/02/21 documented as of this encounter
--- OUTSIDE RECORDS SUMMARY | 2024-08-05 11:03 | XMS_ITS | Encounter Summary ---
Author Organization [facility] Address [address] [place] [address] Care Team Providers Care Energy Economist Name Role Phone Sandeep Rice MD Unavailable [phone] Marizol Chen PA-C Unavailable Kd Smith MD Primary Care Provider + Fanta Sarabia PIANO PROFESSOR Primary Care Provider Unavail able [facility], Pcp [facility] Fanta Sarabia NP Primary Care Provider Unavail able Reason for Visit * Reason Onset Date Comments REFERRAL 12/25/2021 Encounter Details Date Type Department Care Team Description 12/25/2021 Telephone Adult Medicine [address] [phone] Kd Smith MD [address] [place] [address] [phone] REFERRAL Social History Tobacco Use Types Packs/Day Years [...] suspected to have Coronavirus/COVID-19? No / Unsure 12/13/2021 10:43 AM EDT documented as of this encounter Miscellaneous Notes * Telephone Encounter - Elisabeth Mancuso Andrea - 12/25/2021 12:48 PM EDT What insurance does the patient have today? [place] / [place] / Product Type: MEDICARE [id number] Effective 01/27/09: BCBS will not retro referral requests over 90 days. If request is for this please instruct patient to call the 800# on their insurance card to appeal. Do not submit a request. Referrals cannot be processed if the insurance is not accurate. If the insurance listed above in red is NO BILLING INFORMATION FOUND FOR THIS ENCOUTNER The patients correct insurance must be obtained and registered in [employer] or their referral can not be processed. Is this a retro request? NO. If yes for what date of service do you need the retro referral? N/A Who is calling to request this referral? The patient If the caller is not the patient, what is their name? N/A Ask the patient WHO referred them to this specialty: Patient self referred FIRST and LAST NAME of SPECIALIST PATIENT is seeing: Jessi Molina What specialty is this? Gastroentrology DIAGNOSIS Patient is being seen for (Not a body part or a procedure): polyps Have you seen this SPECIALIST for this PROBLEM/DX before? NMo If YES, when: Have you checked REVIEW or the APPT DESK to see if this referral has already been done or has visits left? YES Is this visit:Initial Visit Address of Specialist: [address] [place] [address] Phone # of Specialist:[phone] Fax #: (if applicable):[phone] Does patient have an appointment scheduled?: Date of appointment- (including a retro-request): Is this appointment related to: Not MVA, WC or Surgery related documented in this encounter Plan of Treatment Not on file documented as of this encounter Visit Diagnoses Not on filedocumented in this encounter Care Teams Energy Economist Relationship Specialty Start Date End Date Kd Smith MD [address] [place] [address] PCP - General Internal Medicine 11/22/21 02/06/22 Fanta Sarabia NP [address] [place] [address] PCP - General Internal Medicine 02/07/22 03/15/22 [facility], Pcp [address] [place] [address] PCP - General Internal Medicine 03/16/22 05/15/22 Fanta Sarabia NP [address] [place] [address] PCP - General Internal Medicine 05/16/22 Sandeep Rice MD [address] [address] Specialist Cardiology 10/02/21 Marizol Chen PA-C [address] [address] Specialist Cardiology 10/02/21 documented as of this encounter
--- OUTSIDE RECORDS SUMMARY | 2024-08-05 11:03 | XMS_ITS | Encounter Summary ---
Author Organization [employer] [facility] Address [address] [place] [address] Care Team Providers Care Garbage Pick Up Man Name Role Phone Breanne Coats MD Primary Care Provider Sandeep Castle MD Unavailable [phone] Marizol Chen PA-C Unavailable Kd Smith MD Primary Care Provider + Fanta Sarabia NP Primary Care Provider Unavail able [facility] Pcp Primary Care Provider [facility] Fanta Sarabia CHEMICAL PROCESSING LABORER Primary Care Provider Unavail able Encounter Details Date Type Department Care Team Description 09/29/2021 Hospital Medical Records [address] [place] [address] Social History Tobacco Use Types Packs/Day Years [...] on filedocumented in this encounter Care Teams Garbage Pick Up Man Relationship Specialty Start Date End Date Breanne Coats MD PCP - General Internal Medicine 01/19/21 11/21/21 Kd Smith MD [address] [place] [address] PCP - General Internal Medicine 11/22/21 02/06/22 Fanta Sarabia NP [address] [place] [address] PCP - General Internal Medicine 02/07/22 03/15/22 [facility], Pcp [address] [place] [address] PCP - General Internal Medicine 03/16/22 05/15/22 Fanta Sarabia NP [address] [place] [address] PCP - General Internal Medicine 05/16/22 Sandeep Rice MD 300 [facility] [address] [place] [address] Specialist Cardiology 10/02/21 Marizol Chen PA-C 300 [facility] [address] [place] [address] Specialist Cardiology 10/02/21 documented as of this encounter
--- OUTSIDE RECORDS SUMMARY | 2024-08-05 11:03 | XMS_ITS | Encounter Summary ---
Author Organization [facility] Address [address] [place] [address] Care Team Providers Care Racebook Writer Name Role Phone Lisa Sykes MD Primary Care Provider Breanne Dodd MD Primary Care Provider Sandeep Castle MD Unavailable [phone] Marizol Chen PA-C Unavailable Kd Smith MD Primary Care Provider + Fanta Sarabia NP Primary Care Provider Unavail able [facility], Pcp [facility] Fanta Sarabia LAND INSPECTOR Primary Care Provider Unavail able Reason for Visit * Reason Onset Date Comments Prior Authorization 01/11/2021 Cordran 4MCG /SQCM Tape Encounter Details Date Type Department Care Team Description 01/11/2021 Telephone Dermatology - [address] [phone] Gail Linda PA-C Prior Authorization [...] - 01/11/2021 1:59 PM EDT Dx code:L28.0 [facility] [place] done on CMM to for COrdran 4mcg/sqcm tape. * Telephone Encounter - Gail Davis - 01/11/2021 8:48 AM EDT Prior Authorization for Medication-do not complete and send this encounter unless you have the fax from the pharmacy. Is this a Cover My Meds request: Yes -- Cleaning Code [id number] Name of Medication Cordran 4MCG/SQCM Tape Dose of Medication What is the RX # from the faxed refill? How does patient take this med? What Pharmacy did the fax come from: [facility] fax #: [phone] [employer] Party Information from fax: What Prescription Plan does the patient have? BIN/PCN if applicable: Cardholder ID: Person Code: Relationship Code: Help desk phone: documented in this encounter Plan of Treatment Not on file documented as of this encounter Visit Diagnoses Not on filedocumented in this encounter Care Teams Racebook Writer Relationship Specialty Start Date End Date Lisa Sykes MD PCP - General 07/24/10 01/18/21 Breanne Coats MD PCP - General Internal Medicine 01/19/21 11/21/21 Kd Smith MD [address] [place] [address] PCP - General Internal Medicine 11/22/21 02/06/22 Fanta Sarabia NP [address] [place] [address] PCP - General Internal Medicine 02/07/22 03/15/22 [facility] Pcp [address] [place] [address] PCP - General Internal Medicine 03/16/22 05/15/22 Fanta Sarabia NP [address] [place] [address] PCP - General Internal Medicine 05/16/22 Sandeep Rice MD [address] [address] Specialist Cardiology 10/02/21 Marizol Chen PA-C [address] [address] Specialist Cardiology 10/02/21 documented as of this encounter
--- OUTSIDE RECORDS SUMMARY | 2024-08-05 11:03 | XMS_ITS | Encounter Summary ---
Author Organization [facility] Address [address] [place] [address] Care Team Providers Care Bull Float Finisher Name Role Phone Lisa Sykes MD Primary Care Provider Breanne Dodd MD Primary Care Provider Sandeep Castle MD Unavailable [phone] Marizol Chen PA-C Unavailable Kd Smith MD Primary Care Provider + Fanta Sarabia NP Primary Care Provider Unavail [facility] Primary Care Provider [facility] Fanta Sarabia ENTRY LEVEL PROJECT COORDINATOR Primary Care Provider Unavail [facility] Encounter Details Date Type Department Care Team Description 12/16/2012 Hr Receptionist Report Medical Records [address] [place] [address] Ruben Sandoval Social History Tobacco Use Types [...] on filedocumented in this encounter Care Teams Bull Float Finisher Relationship Specialty Start Date End Date Lisa Sykes MD PCP - General 07/24/10 01/18/21 Breanne Coats MD PCP - General Internal Medicine 01/19/21 11/21/21 Kd Smith MD [address] [place] [address] PCP - General Internal Medicine 11/22/21 02/06/22 Fanta Sarabia NP [address] [place] [address] PCP - General Internal Medicine 02/07/22 03/15/22 [facility] Pcp [address] [place] [address] PCP - General Internal Medicine 03/16/22 05/15/22 Fanta Sarabia NP [address] [place] [address] PCP - General Internal Medicine 05/16/22 Sandeep Rice MD [address] [address] Specialist Cardiology 10/02/21 Marizol Chen PA-C [address] [address] Specialist Cardiology 10/02/21 documented as of this encounter
--- OUTSIDE RECORDS SUMMARY | 2024-08-05 11:03 | XMS_ITS | Encounter Summary ---
Author Organization [employer] [facility] Address [address] [place] [address] Care Team Providers Care Tire Vulcanizer Name Role Phone Breanne Coats MD Primary Care Provider Sandeep Castle MD Unavailable [phone] Marizol Chen PA-C Unavailable Kd Smith MD Primary Care Provider + Fanta Sarabia NP Primary Care Provider Unavail able [facility], Pcp [facility] Fanta Sarabia DIE BAKER Primary Care Provider Unavail able Encounter Details Date Type Department Care Team Description 09/28/2021 SCAN Medical Records [address] [place] [address] Abstract, Provider Social History Tobacco Use Types [...] Date/Time Associated Diagnosis Comments OUTSIDE EKG Routine 09/28/2021 documented in this encounter Results * OUTSIDE EKG (09/28/2021) Provider Default CARDIOLOGY documented in this encounter Visit Diagnoses Not on filedocumented in this encounter Care Teams Tire Vulcanizer Relationship Specialty Start Date End Date Breanne Coats MD PCP - General Internal Medicine 01/19/21 11/21/21 Kd Smith MD [address] [place] [address] PCP - General Internal Medicine 11/22/21 02/06/22 Fanta Sarabia NP [address] [place] [address] PCP - General Internal Medicine 02/07/22 03/15/[address] [address] PCP - General Internal Medicine 03/16/22 05/15/22 Fanta Sarabia NP [address] [place] [address] PCP - General Internal Medicine 05/16/22 Sandeep Rice MD [address] [address] Specialist Cardiology 10/02/21 Marizol Chen PA-C [address] [address] Specialist Cardiology 10/02/21 documented as of this encounter
--- OUTSIDE RECORDS SUMMARY | 2024-08-05 11:03 | XMS_ITS | Encounter Summary ---
Author Organization [facility] Address [address] [place] [address] Care Team Providers Care Bulk Truck Driver Name Role Phone Lisa Sykes MD Primary Care Provider Breanne Dodd MD Primary Care Provider Sandeep Castle MD Unavailable [phone] Marizol Chen PA-C Unavailable Kd Smith MD Primary Care Provider + Fanta Sarabia NP Primary Care Provider Unavail [facility] Primary Care Provider [facility] Fanta Sarabia LADLE FILLER Primary Care Provider Unavail [facility] Encounter Details Date Type Department Care Team Description 06/14/2011 Calculus Teacher Report Medical Records [address] [place] [address] Amberly Love NP Social History Tobacco Use [...] on filedocumented in this encounter Care Teams Bulk Truck Driver Relationship Specialty Start Date End Date Lisa Sykes MD PCP - General 07/24/10 01/18/21 Breanne Coats MD PCP - General Internal Medicine 01/19/21 11/21/21 Kd Smith MD [address] [place] [address] PCP - General Internal Medicine 11/22/21 02/06/22 Fanta Sarabia NP [address] [place] [address] PCP - General Internal Medicine 02/07/22 03/15/22 [facility] Pcp [address] [place] [address] PCP - General Internal Medicine 03/16/22 05/15/22 Fanta Sarabia NP [address] [place] [address] PCP - General Internal Medicine 05/16/22 Sandeep Rice MD [address] [address] Specialist Cardiology 10/02/21 Marizol Chen PA-C [address] [address] Specialist Cardiology 10/02/21 documented as of this encounter
--- OUTSIDE RECORDS SUMMARY | 2024-08-05 11:03 | XMS_ITS | Encounter Summary ---
Author Organization [facility] Address [address] [place] [address] Care Team Providers Care Quality Control Industrial Engineer Name Role Phone Lisa Sykes MD Primary Care Provider Breanne Dodd MD Primary Care Provider Sandeep Castle MD Unavailable [phone] Marizol Chen PA-C Unavailable Kd Smith MD Primary Care Provider + Fanta Sarabia NP Primary Care Provider Unavail [facility] Primary Care Provider [facility] Fanta Sarabia SERGEANT AT [employer] Primary Care Provider Unavail [facility] Encounter Details Date Type Department Care Team Description 09/02/2018 Hand Scraper Report Medical Records [address] [place] [address] Ana Fernández Social History Tobacco Use Types [...] on filedocumented in this encounter Care Teams Quality Control Industrial Engineer Relationship Specialty Start Date End Date Lisa Sykes MD PCP - General 07/24/10 01/18/21 Breanne Coats MD PCP - General Internal Medicine 01/19/21 11/21/21 Kd Smith MD [address] [place] [address] PCP - General Internal Medicine 11/22/21 02/06/22 Fanta Sarabia NP [address] [place] [address] PCP - General Internal Medicine 02/07/22 03/15/22 [facility], Pcp [address] [place] [address] PCP - General Internal Medicine 03/16/22 05/15/22 Fanta Sarabia NP [address] [place] [address] PCP - General Internal Medicine 05/16/22 Sandeep Rice MD [address] [address] Specialist Cardiology 10/02/21 Marizol Chen PA-C [address] [address] Specialist Cardiology 10/02/21 documented as of this encounter
--- OUTSIDE RECORDS SUMMARY | 2024-08-05 11:03 | XMS_ITS | Encounter Summary ---
Author Organization [facility] Address [address] [place] [address] Care Team Providers Care Supervisor Refining Name Role Phone Lisa Sykes MD Primary Care Provider Breanne Dodd MD Primary Care Provider Sandeep Castle MD Unavailable [phone] Marizol Chen PA-C Unavailable Kd Smith MD Primary Care Provider + Fanta Sarabia NP Primary Care Provider Unavail [facility] Fanta Sarabia VEGETABLE CUTTER Primary Care Provider Unavail [facility] Encounter Details Date Type Department Care Team Description 11/21/2020 Clinical Quality Assurance Specialist Report Medical Records [address] [place] [address] Ana Fernández Social History Tobacco Use Types [...] on filedocumented in this encounter Care Teams Supervisor Refining Relationship Specialty Start Date End Date Lisa Sykes MD PCP - General 07/24/10 01/18/21 Breanne Coats MD PCP - General Internal Medicine 01/19/21 11/21/21 Kd Smith MD [address] [place] [address] PCP - General Internal Medicine 11/22/21 02/06/22 Fanta Sarabia NP [address] [place] [address] PCP - General Internal Medicine 02/07/22 03/15/22 [facility], Pcp [address] [place] [address] PCP - General Internal Medicine 03/16/22 05/15/22 Fanta Sarabia NP [address] [place] [address] PCP - General Internal Medicine 05/16/22 Sandeep Rice MD [address] [address] Specialist Cardiology 10/02/21 Marizol Chen PA-C [address] [address] Specialist Cardiology 10/02/21 documented as of this encounter
--- OUTSIDE RECORDS SUMMARY | 2024-08-05 11:03 | XMS_ITS | Encounter Summary ---
Author Organization [facility] Address [address] [place] [address] Care Team Providers Care Banking Services Clerk Name Role Phone Lisa Sykes MD Primary Care Provider Breanne Dodd MD Primary Care Provider Sandeep Castle MD Unavailable [phone] Marizol Chen PA-C Unavailable Kd Smith MD Primary Care Provider + Fanta Sarabia NP Primary Care Provider Unavail able Replaced By [facility] Pcp [facility] Fanta Sarabia FILLER SHREDDER MACHINE Primary Care Provider Unavail able Reason for Visit * Reason Onset Date Comments Blood Pressure Elevated 02/26/2014 Encounter Details Date Type Department Care Team Description 02/26/2014 Refill Adult Medicine [address] [id number] Lisa Sykes MD Blood Pressure Elevated Social History Tobacco Use Types Packs/Day Years [...] encounter Miscellaneous Notes * Telephone Encounter - Kylie Ashley M.A. - 02/26/2014 4:22 PM EDT Manually faxed to pharmacy Please review and advise * Telephone Encounter - Anushka Dennison - 02/26/2014 4:20 PM EDT Caller requesting call back from provider: Dr Sykes Is the caller the patient? YES Reason for call back: Patient reporting blood pressure has consistently been around 142/82 for pastseveral weeks. Taken at her school. Caller offered to speak with the nurse for assistance: YES Response: Patient offered to speak with nurse for assistance and patient agreed. Message forwarded to nurse. documented in this encounter Plan of Treatment Not on file documented as of this encounter Visit Diagnoses Not on filedocumented in this encounter Care Teams Banking Services Clerk Relationship Specialty Start Date End Date Lisa Sykes MD PCP - General 07/24/10 01/18/21 Breanne Coats MD PCP - General Internal Medicine 01/19/21 11/21/21 Kd Smith MD [address] [place] [address] PCP - General Internal Medicine 11/22/21 02/06/22 Fanta Sarabia NP [address] [place] [address] PCP - General Internal Medicine 02/07/22 03/15/[address] [address] PCP - General Internal Medicine 03/16/22 05/15/22 Fanta Sarabia NP [address] [place] [address] PCP - General Internal Medicine 05/16/22 Sandeep Rice MD [address] [place] [address] Specialist Cardiology 10/02/21 Marizol Chen PA-C [address] [place] [address] Specialist Cardiology 10/02/21 documented as of this encounter
--- OUTSIDE RECORDS SUMMARY | 2024-08-05 11:03 | XMS_ITS | Encounter Summary ---
Author Organization [facility] Address [address] [place] [address] Care Team Providers Care Rides Supervisor Name Role Phone Lisa Sykes MD Primary Care Provider Breanne Dodd MD Primary Care Provider Sandeep Castle MD Unavailable [phone] Marizol Chen PA-C Unavailable Kd Smith MD Primary Care Provider + Fanta Sarabia NP Primary Care Provider Unavail able [facility] Pcp [facility] Fanta Sarabia SHOPPER MARKETING MANAGER Primary Care Provider Unavail able Encounter Details Date Type Department Care Team Description 11/04/2015 Refill Adult Medicine [address] [phone] Lisa Sykes MD Social History Tobacco Use Types Packs/Day [...] encounter Miscellaneous Notes * Telephone Encounter - Zoë Olivarez - 11/04/2015 1:26 PM EDT documented in this encounter Plan of Treatment Not on file documented as of this encounter Visit Diagnoses Not on filedocumented in this encounter Care Teams Rides Supervisor Relationship Specialty Start Date End Date Lisa Sykes MD PCP - General 07/24/10 01/18/21 Breanne Coats MD PCP - General Internal Medicine 01/19/21 11/21/21 Kd Smith MD [address] [place] [address] PCP - General Internal Medicine 11/22/21 02/06/22 Fanta Sarabia NP [address] [place] [address] PCP - General Internal Medicine 02/07/22 03/15/22 [facility] Pcp [address] [place] [address] PCP - General Internal Medicine 03/16/22 05/15/22 Fanta Sarabia NP [address] [place] [address] PCP - General Internal Medicine 05/16/22 Sandeep Rice MD [address] [place] [address] Specialist Cardiology 10/02/21 Marizol Chen PA-C [address] [place] [address] Specialist Cardiology 10/02/21 documented as of this encounter
--- OUTSIDE RECORDS SUMMARY | 2024-08-05 11:03 | XMS_ITS | Encounter Summary ---
Author Organization [facility] Address [address] [place] [address] Care Team Providers Care Die Stamper Name Role Phone Lisa Sykes MD Primary Care Provider Breanne Dodd MD Primary Care Provider Sandeep Castle MD Unavailable [phone] Marizol Chen PA-C Unavailable Kd Smith MD Primary Care Provider + Fanta Sarabia NP Primary Care Provider Unavail [facility] Primary Care Provider [facility] Fanta Sarabia BRICK AND BLOCKER AID LABOR Primary Care Provider Unavail [facility] Encounter Details Date Type Department Care Team Description 12/30/2012 Release of Information Medical Records [address] [place] [address] Abstract, Provider Social History Tobacco Use Types [...] filedocumented in this encounter Care Teams Die Stamper Relationship Specialty Start Date End Date Lisa Sykes MD PCP - General 07/24/10 01/18/21 Breanne Coats MD PCP - General Internal Medicine 01/19/21 11/21/21 Kd Smith MD [address] [place] [address] PCP - General Internal Medicine 11/22/21 02/06/22 Fanta Sarabia NP [address] [place] [address] PCP - General Internal Medicine 02/07/22 03/15/22 [facility] Pcp [address] [place] [address] PCP - General Internal Medicine 03/16/22 05/15/22 Fanta Sarabia NP [address] [place] [address] PCP - General Internal Medicine 05/16/22 Sandeep Rice MD [address] [address] Specialist Cardiology 10/02/21 Marizol Chen PA-C [address] [address] Specialist Cardiology 10/02/21 documented as of this encounter
--- OUTSIDE RECORDS SUMMARY | 2024-08-05 11:03 | XMS_ITS | Encounter Summary ---
Author Organization [facility] Address [address] [place] [address] Care Team Providers Care Filenet Architect Name Role Phone Breanne Coats MD Primary Care Provider Sandeep Castle MD Unavailable [phone] Marizol Chen PA-C Unavailable Kd Smith MD Primary Care Provider + Fanta Sarabia NP Primary Care Provider Unavail able [facility] Pcp Primary Care Provider [facility] Fanta Sarabia LINING CUTTER Primary Care Provider Unavail able Encounter Details Date Type Department Care Team Description 05/04/2021 Instructional Design Technologist Report Medical Records [address] [place] [address] Soy Galeano MD Social History Tobacco Use Types Packs/Day [...] on filedocumented in this encounter Care Teams Filenet Architect Relationship Specialty Start Date End Date Breanne Coats MD PCP - General Internal Medicine 01/19/21 11/21/21 Kd Smith MD [address] [place] [address] [id number] PCP - General Internal Medicine 11/22/21 02/06/22 Fanta Sarabia NP [address] [place] [address] PCP - General Internal Medicine 02/07/22 03/15/22 [facility] Pcp [address] [place] [address] PCP - General Internal Medicine 03/16/22 05/15/22 Fanta Sarabia NP [address] [place] [address] PCP - General Internal Medicine 05/16/22 Sandeep Rice MD [address] [place] [address] Specialist Cardiology 10/02/21 Marizol Chen PA-C [address] [facility] [address] [place] [address] Specialist Cardiology 10/02/21 documented as of this encounter
--- OUTSIDE RECORDS SUMMARY | 2024-08-05 11:03 | XMS_ITS | Encounter Summary ---
Author Organization [facility] Address [address] [place] [address] Care Team Providers Care Sand Hauler Name Role Phone Breanne Coats MD Primary Care Provider Sandeep Castle MD Unavailable [phone] Marizol Chen PA-C Unavailable Kd Smith MD Primary Care Provider + Fanta Saarbia NP Primary Care Provider Unavail able [facility] Fanta Sarabia CERTIFIED MASTER LOCKSMITH Primary Care Provider Unavail able Encounter Details Date Type Department Care Team Description 09/28/2021 SCAN Medical Records [address] [place] [address] Abstract, Provider Social History Tobacco Use Types [...] on filedocumented in this encounter Care Teams Sand Hauler Relationship Specialty Start Date End Date Breanne Coats MD PCP - General Internal Medicine 01/19/21 11/21/21 Kd Smith MD [address] [place] [address] PCP - General Internal Medicine 11/22/21 02/06/22 Fanta Sarabia NP [address] [place] [address] PCP - General Internal Medicine 02/07/22 03/15/22 [facility] Pcp [address] [place] [address] PCP - General Internal Medicine 03/16/22 05/15/22 Fanta Sarabia NP [address] [place] [address] PCP - General Internal Medicine 05/16/22 Sandeep Rice MD [address] [address] Specialist Cardiology 10/02/21 Marizol Chen PA-C [address] [facility] [address] [place] [address] Specialist Cardiology 10/02/21 documented as of this encounter
--- OUTSIDE RECORDS SUMMARY | 2024-08-05 11:03 | XMS_ITS | Encounter Summary ---
Author Organization [facility] Address [address] [place] [address] Care Team Providers Care Intermission Coordinator Name Role Phone Lisa Sykes MD Primary Care Provider Breanne Dodd MD Primary Care Provider Sandeep Castle MD Unavailable Marizol Chen PA-C Unavailable Kd Smith MD Primary Care Provider + Fanta Sarabia NP Primary Care Provider Unavail [facility] Primary Care Provider [facility] Fanta Sarabia SENIOR UI SOFTWARE ENGINEER Primary Care Provider Unavail [facility] Encounter Details Date Type Department Care Team Description 06/09/2013 Wire Stripper Report Medical Records [address] [place] [address] Ruben Sandoval Social History Tobacco Use Types [...] on filedocumented in this encounter Care Teams Intermission Coordinator Relationship Specialty Start Date End Date Lisa Sykes MD PCP - General 07/24/10 01/18/21 Breanne Coats MD PCP - General Internal Medicine 01/19/21 11/21/21 Kd Smith MD [address] [place] [address] PCP - General Internal Medicine 11/22/21 02/06/22 Fanta Sarabia NP [address] [place] [address] PCP - General Internal Medicine 02/07/22 03/15/22 [facility] Pcp [address] [place] [address] PCP - General Internal Medicine 03/16/22 05/15/22 Fanta Sarabia NP [address] [place] [address] PCP - General Internal Medicine 05/16/22 Sandeep Rice MD [address] [address] Specialist Cardiology 10/02/21 Marizol Chen PA-C [address] [address] Specialist Cardiology 10/02/21 documented as of this encounter
--- OUTSIDE RECORDS SUMMARY | 2024-08-05 11:03 | XMS_ITS | Encounter Summary ---
Author Organization [facility] Address [address] [place] [address] Care Team Providers Care Can Stacker Name Role Phone Lisa Sykes MD Primary Care Provider Breanne Dodd MD Primary Care Provider Sandeep Castle MD Unavailable [phone] Marizol Chen PA-C Unavailable Kd Smith MD Primary Care Provider + Fanta Sarabia NP Primary Care Provider Unavail [facility] Primary Care Provider [facility] Fanta Sarabia METAL FURNITURE REPAIRER Primary Care Provider Unavail [facility] Encounter Details Date Type Department Care Team Description 10/14/2014 Trust Administrator Report Medical Records [address] [place] [address] Chinyere Mccoy MD Social History Tobacco Use [...] filedocumented in this encounter Care Teams Can Stacker Relationship Specialty Start Date End Date Lisa Sykes MD PCP - General 07/24/10 01/18/21 Breanne Coats MD PCP - General Internal Medicine 01/19/21 11/21/21 Kd Smith MD [address] [place] [address] PCP - General Internal Medicine 11/22/21 02/06/22 Fanta Sarabia NP [address] [place] [address] PCP - General Internal Medicine 02/07/22 03/15/22 [facility] Pcp [address] [place] [address] PCP - General Internal Medicine 03/16/22 05/15/22 Fanta Sarabia NP [address] [place] [address] PCP - General Internal Medicine 05/16/22 Sandeep Rice MD [address] [address] Specialist Cardiology 10/02/21 Marizol Chen PA-C [address] [address] Specialist Cardiology 10/02/21 documented as of this encounter
--- OUTSIDE RECORDS SUMMARY | 2024-08-05 11:03 | XMS_ITS | Encounter Summary ---
Author Organization [facility] Address [address] [place] [address] Care Team Providers Care Sample Processor Name Role Phone Sandeep Rice MD Unavailable [phone] Marizol Chen PA-C Unavailable Kd Smith MD Primary Care Provider + Fanta Sarabia NP Primary Care Provider Unavail able [facility], Pcp [facility] Fanta Sarabia NP Primary Care Provider Unavail able Encounter Details Date Type Department Care Team Description 02/01/2022 Slot Machine Floor Person Report Medical Records [address] [place] [address] Fanta Sarabia NP Social History Tobacco Use [...] on filedocumented in this encounter Care Teams Sample Processor Relationship Specialty Start Date End Date Kd Smith MD [address] [place] [address] PCP - General Internal Medicine 11/22/21 02/06/22 Fanta Sarabia NP [address] [place] [address] PCP - General Internal Medicine 02/07/22 03/15/22 [facility], Pcp [address] [place] [address] PCP - General Internal Medicine 03/16/22 05/15/22 Fanta Sarabia NP [address] [place] [address] PCP - General Internal Medicine 05/16/22 Sandeep Rice MD [address] [facility] [address] [place] [address] Specialist Cardiology 10/02/21 Marizol Chen PA-C [address] [facility] [address] [place] [address] Specialist Cardiology 10/02/21 documented as of this encounter
--- OUTSIDE RECORDS SUMMARY | 2024-08-05 11:03 | XMS_ITS | Encounter Summary ---
Author Organization [facility] Address [address] [place] [address] Care Team Providers Care Site Leader Name Role Phone Lisa Sykes MD Primary Care Provider Breanne Dodd MD Primary Care Provider Sandeep Castle MD Unavailable [phone] Marizol Chen PA-C Unavailable Kd Smith MD Primary Care Provider + Fanta Sarabia NP Primary Care Provider Unavail able [facility] Pcp [facility] Fanta Sarabia PHOTOGRAPHERS' MODEL Primary Care Provider Unavail able Reason for Visit * Reason Onset Date Comments Shortness Of Breath 03/24/2018 Cough 03/24/2018 Encounter Details Date Type Department Care Team Description 03/24/2018 Telephone Adult [address] [phone] Lisa Sykes MD Shortness Of Breath; Cough [...] She ahs been to urgent care and [facility] ER and not feeling better. If pain or injury related was it due to an accident at work or from a motor vehicle accident? NO If yes, gather 3rd democrat insurance information Date of accident/Injury: n/a How long has patient had these symptoms?: a few weeks PCP: Lisa Sykes Payor: MARKO SELF FUNDED / Plan: HMO $20 [place] 1500 / Product Type: HMO [id number] documented in this encounter Plan of Treatment Not on file documented as of this encounter Visit Diagnoses Not on filedocumented in this encounter Care Teams Site Leader Relationship Specialty Start Date End Date Lisa Sykes MD PCP - General 07/24/10 01/18/21 Breanne Coats MD PCP - General Internal Medicine 01/19/21 11/21/21 Kd Smith MD [address] [place] [address] PCP - General Internal Medicine 11/22/21 02/06/22 Fanta Sarabia NP [address] [place] [address] PCP - General Internal Medicine 02/07/22 03/15/22 Clare Kelly [address] [place] [address] PCP - General Internal Medicine 03/16/22 05/15/22 Fanta Sarabia, NICHOLAS [address] [place] [address] PCP - General Internal Medicine 05/16/22 Sandeep Rice MD [address] [address] Specialist Cardiology 10/02/21 Marizol Chen PA-C [address] [address] Specialist Cardiology 10/02/21 documented as of this encounter
--- OUTSIDE RECORDS SUMMARY | 2024-08-05 11:03 | XMS_ITS | Encounter Summary ---
Author Organization [facility] Address [address] [place] [address] Care Team Providers Care Auto Hauler Name Role Phone Sandeep Rice MD Unavailable [phone] Marizol Chen PA-C Unavailable Kd Smith MD Primary Care Provider + Fanta Sarabia RETURNED GOODS RECEIVING CLERK Primary Care Provider Unavail able [facility], Pcp [facility] Fanta Sarabia NP Primary Care Provider Unavail able Encounter Details Date Type Department Care Team Description 12/01/2021 [facility] Medical Records [address] [place] [address] Abstract, Provider Social History Tobacco Use Types [...] on filedocumented in this encounter Care Teams Auto Hauler Relationship Specialty Start Date End Date Kd Smith MD [address] [place] [address] PCP - General Internal Medicine 11/22/21 02/06/22 Fanta Sarabia NP [address] [place] [address] PCP - General Internal Medicine 02/07/22 03/15/22 [facility] Pcp [address] [place] [address] PCP - General Internal Medicine 03/16/22 05/15/22 Fanta Sarabia NP [address] [place] [address] PCP - General Internal Medicine 05/16/22 Sandeep Rice MD [address] [place] [address] Specialist Cardiology 10/02/21 Marizol Chen PA-C [address] [facility] [address] [place] [address] Specialist Cardiology 10/02/21 documented as of this encounter
--- OUTSIDE RECORDS SUMMARY | 2024-08-05 11:03 | XMS_ITS | Encounter Summary ---
Author Organization [employer] [facility] Address [address] [place] [address] Care Team Providers Care Back Tender Pulp Drier Name Role Phone Breanne Coats MD Primary Care Provider Sandeep Castle MD Unavailable [phone] Marizol Chen PA-C Unavailable Kd Smith MD Primary Care Provider + Fanta Sarabia NP Primary Care Provider Unavail able [facility], Pcp [facility] Fanta Sarabia GROCERY CASHIER Primary Care Provider Unavail able Encounter Details Date Type Department Care Team Description 09/29/2021 SCAN Medical Records [address] [place] [address] Abstract, Provider Social History Tobacco Use Types [...] on filedocumented in this encounter Care Teams Back Tender Pulp Drier Relationship Specialty Start Date End Date Breanne Coats MD PCP - General Internal Medicine 01/19/21 11/21/21 Kd Smith MD [address] [place] [address] PCP - General Internal Medicine 11/22/21 02/06/22 Fanta Sarabia NP [address] [place] [address] PCP - General Internal Medicine 02/07/22 03/15/[address] [address] PCP - General Internal Medicine 03/16/22 05/15/22 Fanta Sarabia NP [address] [place] [address] PCP - General Internal Medicine 05/16/22 Sandeep Rice MD [address] [address] Specialist Cardiology 10/02/21 Marizol Chen PA-C [address] [address] Specialist Cardiology 10/02/21 documented as of this encounter
--- OUTSIDE RECORDS SUMMARY | 2024-08-05 11:03 | XMS_ITS | Encounter Summary ---
Author Organization [facility] Address [address] [place] [address] Care Team Providers Care Resaw Feeder Name Role Phone Lisa Sykes MD Primary Care Provider Breanne Dodd MD Primary Care Provider Sandeep Castle MD Unavailable [phone] Marizol Chen PA-C Unavailable Kd Smith MD Primary Care Provider + Fanta Sarabia NP Primary Care Provider Unavail [facility] Fanta Sarabia CLIENT CARE REPRESENTATIVE Primary Care Provider Unavail able Encounter Details Date Type Department Care Team Description 03/24/2018 Hospital Medical Records [address] [place] [address] Social History Tobacco Use Types Packs/Day Years [...] on filedocumented in this encounter Care Teams Resaw Feeder Relationship Specialty Start Date End Date Lisa Sykes MD PCP - General 07/24/10 01/18/21 Breanne Coats MD PCP - General Internal Medicine 01/19/21 11/21/21 Kd Smith MD [address] [place] [address] PCP - General Internal Medicine 11/22/21 02/06/22 Fanta Sarabia NP [address] [place] [address] PCP - General Internal Medicine 02/07/22 03/15/22 [facility] Pcp [address] [place] [address] PCP - General Internal Medicine 03/16/22 05/15/22 Fanta Sarabia NP [address] [place] [address] PCP - General Internal Medicine 05/16/22 Sandeep Rice MD [address] [address] Specialist Cardiology 10/02/21 Marizol Chen PA-C [address] [address] Specialist Cardiology 10/02/21 documented as of this encounter
--- OUTSIDE RECORDS SUMMARY | 2024-08-05 11:03 | XMS_ITS | Encounter Summary ---
Author Organization [employer] [facility] Address [address] [place] [address] Care Team Providers Care Telephone Messenger Name Role Phone Breanne Coats MD Primary Care Provider Sandeep Castle MD Unavailable [phone] Marizol Chen PA-C Unavailable Kd Smith MD Primary Care Provider + Fanta Sarabia NP Primary Care Provider Unavail able [facility] Pcp [facility] Fanta Sarabia DRAW MACHINE OPERATOR Primary Care Provider Unavail able Encounter Details Date Type Department Care Team Description 09/29/2021 SCAN Medical Records [address] [place] [address] Abstract, Provider Social History Tobacco Use Types [...] on filedocumented in this encounter Care Teams Telephone Messenger Relationship Specialty Start Date End Date Breanne Coats MD PCP - General Internal Medicine 01/19/21 11/21/21 Kd Smith MD [address] [place] [address] PCP - General Internal Medicine 11/22/21 02/06/22 Fanta Sarabia NP [address] [place] [address] PCP - General Internal Medicine 02/07/22 03/15/22 [facility] Pcp [address] [place] [address] PCP - General Internal Medicine 03/16/22 05/15/22 Fanta Sarabia NP [address] [place] [address] PCP - General Internal Medicine 05/16/22 Sandeep Rice MD [address] [address] Specialist Cardiology 10/02/21 Marizol Chen PA-C [address] [facility] [address] [place] [address] Specialist Cardiology 10/02/21 documented as of this encounter
--- OUTSIDE RECORDS SUMMARY | 2024-08-05 11:03 | XMS_ITS | Encounter Summary ---
[facility] Organization [facility] Address [address] [place] [address] Care Team Providers Care Net Developer Programmer Name Role Phone Lisa Sykes MD Primary Care Provider Breanne Dodd MD Primary Care Provider Sandeep Castle MD Unavailable [phone] Marizol Chen PA-C Unavailable Kd Smith MD Primary Care Provider + Fanta Sarabia NP Primary Care Provider Unavail [facility] Primary Care Provider [facility] Fanta Sarabia MANAGER TRANSPORTATION Primary Care Provider Unavail [facility] Encounter Details Date Type Department Care Team Description 07/22/2012 Release of Information Medical Records [address] [place] [id number] Abstract, Provider Social History Tobacco Use Types [...] on filedocumented in this encounter Care Teams Net Developer Programmer Relationship Specialty Start Date End Date Lisa Sykes MD PCP - General 07/24/10 01/18/21 Breanne Coats MD PCP - General Internal Medicine 01/19/21 11/21/21 Kd Smith MD [address] [place] [address] PCP - General Internal Medicine 11/22/21 02/06/22 Fanta Sarabia NP [address] [place] [address] PCP - General Internal Medicine 02/07/22 03/15/22 [facility] Pcp [address] [place] [address] PCP - General Internal Medicine 03/16/22 05/15/22 Fanta Sarabia NP [address] [place] [address] PCP - General Internal Medicine 05/16/22 Sandeep Rice MD [address] [address] Specialist Cardiology 10/02/21 Marizol Chen PA-C [address] [address] Specialist Cardiology 10/02/21 documented as of this encounter
== END 2024-08-05 10:17 | disposition home or self-care (01) ==
LOC: HO.HPS 09:57
PROVIDERS: PCP Nurse Practitioner; Visit Provider Internal Medicine
DX: J30.9 Allergic rhinitis, unspecified (principal); J44.9 Chronic obstructive pulmonary disease, unspecified
CPT/HCPCS: 99213

== ENCOUNTER → 2024-08-05 09:56 | Outpatient (BNVA) | payer OTHER, MEDICARE, SELFPAY | PROVIDERS: PCP Nurse Practitioner; Visit Provider Internal Medicine ==

== ENCOUNTER 2024-08-21 11:03 | Outpatient (REF) | payer MEDICARE, OTHER, SELFPAY ==
[2024-08-21 11:19] LABS: MANUAL DIFF FLAG NO
[2024-08-21 11:54] LABS: Basophils Percent Auto 0.2 % (0-2); Hematocrit 37.6 % (37.0-47.0); Imm Gran Abs Auto 0.02 X10*3/uL (0.00-0.03); Imm Gran Pct Auto 0.4 % (0.0-0.4); Lymphocytes Absolute Auto 1.2 X10*3/uL (1.2-4.9); Lymphocytes Percent Auto 22.1 % (20-40); Mean Corpuscular HGB Conc 34.6 g/dl (31.0-35.0); Mean Corpuscular Hemoglobin 30.4 pg (27.0-33.0); Mean Corpuscular Volume 87.9 fL (80.0-98.0); Monocytes Absolute Auto 0.6 X10*3/uL (0.1-1.2); Neutrophils Absolute Auto 3.4 x10*3/uL (2.0-8.3); Neutrophils Percent Auto 65.3 % (45-73); Platelet Count 324 X10*3/uL (160-400); Red Blood Count 4.28 X10*6/uL (4.20-5.50); Red Cell Distribution Width 12.9 % (11.0-16.0); White Blood Count 5.2 X10*3/uL (4.8-10.8)
[2024-08-21 12:13] LABS: C Reactive Protein 0.86 mg/dL (< or = 0.50)
[2024-08-21 12:34] LABS: Erythrocyte Sedimentation Rate 22 MM/HR (0-20)
== END 2024-08-21 11:04 | disposition home or self-care (01) ==
LOC: HO.LAB 11:03
PROVIDERS: PCP Nurse Practitioner; Visit Provider Student in an Organized Health Care Education/Training Program
DX: M12.30 Palindromic rheumatism, unspecified site (principal)
CPT/HCPCS: 36415; 85025; 85652; 86140

== ENCOUNTER 2024-11-10 09:40 | Outpatient (AMB) | payer OTHER, MEDICARE, SELFPAY ==
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
[2024-11-10 09:44] VITALS: BP 132/64; PULSE 64; O2SAT 98; BMI 21.0
== END 2024-11-10 10:02 | disposition home or self-care (01) ==
LOC: HO.RHE 09:40
PROVIDERS: PCP Nurse Practitioner; Visit Provider Student in an Organized Health Care Education/Training Program
DX: M12.30 Palindromic rheumatism, unspecified site (principal); M81.0 Age-related osteoporosis without current pathological fracture; Z51.81 Encounter for therapeutic drug level monitoring; Z79.899 Other long term (current) drug therapy
CPT/HCPCS: 99214; G2211

== ENCOUNTER → 2024-12-30 09:15 | Outpatient (BNV) | payer MEDICARE, OTHER, SELFPAY | PROVIDERS: Visit Provider Radiology Body Imaging | DX: E28.39 Other primary ovarian failure (principal) | CPT/HCPCS: 77080 ==

== ENCOUNTER 2024-12-30 09:26 | Outpatient (REF) | payer MEDICARE, OTHER, SELFPAY ==
--- NOTE | ~2024-12-30 | MM_ITS ---
STUDY: DUAL ENERGY X-RAY ABSORPTIOMETRY / DXA REASON FOR EXAM: Female, 69 years old M81.0 - Age-related osteoporosis without current pathological fracture TECHNIQUE: Bone Mineral Density (BMD) measurements of the lumbar spine and left hip were obtained using [employer] COMPARISON: None FINDINGS: L1-L4 BMD: 0.955 g/cm2 L1-L4 T score: -1.9. This corresponds to osteopenia. Left femoral neck BMD: 0.998 g/cm2 Left femoral neck T score: -0.3. This corresponds to Normal bone density. Left total hip BMD: 1.014 g/cm2 Left total hip T score: 0.1. This corresponds to Normal bone density. MM/XR DEXA axial skeleton IMPRESSION: Osteopenia Reference Information: The T-score is the number of standard deviations above or below the standard which is normal for young adults at their peak bone mineral density. The World Health Organization (WHO) interprets the T-scores as follows: At or above -1 SD Normal bone density Between -1 and -2.5 SD Osteopenia At or below -2.5 SD Osteoporosis Electronically signed by: Urbano Rose MD 12/31/2024 10:53 AM EDT
--- OUTSIDE RECORDS SUMMARY | 2024-12-30 10:15 | XMS_ITS | Encounter Summary ---
Author Organization [facility] Address [address] [place], [place] [id number] Phone Care Team Providers Care Fire Technology Instructor Name Role Phone Fanta Sarabia NP Primary Care Provider [phone] Encounter Details Date Type Department Care Team (Late Contact Info) Description 07/30/2022 Procedure Pass [facility] Endoscopy Admitting Dept Virtual Department [address] [place] [address] Social History Tobacco Use Types Packs/Day Years Used Date Smoking Tobacco: Former Cigarettes Smokeless Tobacco: Never Comments:Smoked in college Alcohol Use Standard Drinks/Week Comments Yes 0 (1 standard drink = 0.6 oz pur e alcohol) 1-2 drinks on weekend Intimate Partner Violence Answer Date R ecorded Are you denied basic needs s uch as food, clothing, or medical care? No 07/27/2022 In the past 12 months have y ou been in a relationship with a person who hurts, threatens, or tries to control you? No 07/27/2022 Are you denied basic needs s uch as food, clothing, or medical care? No 07/27/2022 In the past 12 months have y ou been in a relationship with a person who hurts, threatens, or tries to control you? No 07/27/2022 Comments No Sex and Gender Information Value Date Recorded Sex Assigned at Not on file Legal Sex Female 8:27 PM EDT Gender Identity Not on file Sexual Orientation Not on file documented as of this encounter Plan of Treatment Upcoming Encounters Date Type Department Care Team (Late Contact Info) Description 01/13/2025 Procedure Pass [facility] Endoscopy Admitting Dept Virtual Department [address] [place] [address] 01/13/2025 12:00 PM EDT Hospital Encounter [facility] Endoscopy Admitting Dept Virtual Department [address] [place] [address] Barrington Henderson MD [address] [address] 01/13/2025 12:00 PM EDT - 01/13/2025 12:15 PM EDT Surgery [facility] Endoscopy Admitting Dept Virtual Department [address] [place] [address] Barrington Henderson MD [address] [address] [email or web address] COLONOSCOPY Scheduled Procedures Name Priority Associated Diagnoses Date/Ti me COLONOSCOPY Constipation, unspecified constipation type Diverticulitis of colon 01/13/2025 12:00 PM EDT documented as of this encounter Visit Diagnoses Not on filedocumented in this encounter Additional Health Concerns Infection Onset Date Last Indicated Resolved Time CoV-Risk 07/08/2024 07/08/2024 07/19/2024 1:22 AM EDT documented as of this encounter Care Teams Fire Technology Instructor Relationship Specialty Start Date End Date Fanta Sarabia NP [address] [place] [address] [email or web address] PCP - General Nurse Practitioner 07/30/22 documented as of this encounter Additional Source Comments The information contained in this document represents components of the legal health record. It is not the complete legal health record.[facility]
--- OUTSIDE RECORDS SUMMARY | 2024-12-30 10:15 | XMS_ITS | Encounter Summary ---
Author Organization [facility] Address [address] [place] [phone] Phone Care Team Providers Care Aviation Support Equipment Repairer Name Role Phone Fanta Sarabia NP Primary Care Provider [phone] Encounter Details Date Type Department Care Team (Latest Contact Info) Description 10/09/2024 Transcribe Orders [facility] Laboratory [address] [address] Diana Banks PA-C [address] [place] [address] [email or web address] Constipation, unspecified constipation type (Primary Dx); Diverticulitis of large intestine without perforation or abscess without bleeding; Diarrhea, unspecified type Social History Tobacco Use Types Packs/Day Years Used Date Smoking Tobacco: Former Cigarettes Smokeless Tobacco: Never Comments:Smoked in college Alcohol Use Standard Drinks/Week Comments Yes 0 (1 standard drink = 0.6 oz pur e alcohol) 1-2 drinks on weekend Education Answer Date Recorded Are you interested in more education? Not on russel e 08/24/2022 Are you concerned about learning? Not on file 08/24/2022 No 08/24/2022 No 08/24/2022 Digital Access Answer Date Recorded No 09/24/2022 No 09/24/2022 Reliable internet access at home? Not on file 09/24/2022 Device with a working camera? Not on file Intimate Partner Violence Answer Date R ecorded [...] Encounters Date Type Department Care Team (Late st Contact Info) Description 01/13/2025 Procedure Pass [facility] Endoscopy Admitting Dept Virtual Department [address] [place] [address] 01/13/2025 12:00 PM EDT Hospital Encounter [facility]oscopy Admitting Dept Virtual Department [address] [place] [address] Barrington Henderson MD [address] [place] [address] 01/13/2025 12:00 PM EDT - 01/13/2025 12:15 PM EDT Surgery [facility] Endoscopy Admitting Dept Virtual Department [address] [place] [address] Barrington Henderson MD [address] [place] [address] COLONOSCOPY Scheduled Procedures Name Priority Associated Diagnoses Date/Ti va COLONOSCOPY Constipation, unspecified constipation type Diverticulitis of colon 01/13/2025 12:00 PM EDT documented as of this encounter Results * TSH (10/09/2024 10:37 AM EDT) TSH 0.91 0.27 - 4.20 uIU/mL [facility] Blood 10/09/2024 10:3 7 AM EDT 10/09/2024 10:42 AM EDT us Diana Banks PA-C LAB BLOOD ORDERABLES Final Resu lt [address] [address] * (ABNORMAL) C-Reactive Protein (10/09/2024 10:37 AM EDT) C REACTIVE PROTEIN 18.3(H) 0.0 - 4.0 mg/L [facility] Blood 10/09/2024 10:3 7 AM EDT 10/09/2024 10:42 AM EDT us Diana Banks PA-C LAB BLOOD ORDERABLES Final Resu lt Performing Organization Address City/[facility]/ZIP Co de Phone Number [address] [address] * (ABNORMAL) Comprehensive metabolic panel (10/09/2024 10:37 AM EDT) SODIUM 129(L) 133 - 146 mmol/L [facility] POTASSIUM 4.4 3.3 - 5.1 mmol/L [facility] CHLORIDE 93(L) 96 - 108 mmol/L [facility] CO2 26 21 - 35 mmol/L [facility] BUN 8 6 - 19 mg/dL [facility] CREATININE 0.60 0.5 - 1.5 mg/dL [facility] GLUCOSE 96 70 - 99 mg/dL [facility] ALBUMIN 4.5 3.9 - 4.8 g/dL [facility] TOTAL PROTEIN 7.5 6.5 - 8.0 g/dL [facility] CALCIUM 9.5 8.4 - 10.3 mg/dL [facility] ALKALINE PHOSPHATASE 104 39 - 117 U/L [facility] TOTAL BILIRUBIN 0.5 0.0 - 1.2 mg/dL [facility] AST 22 0 - 37 U/L [facility] ALT 14 0 - 40 U/L [facility] GLOBULIN 3.0 1 - 4.8 g/dL [facility] EGFR 97 >59 mL/min/1.7 3m2 [facility] Comment:Estimated glomerular filtration rate calculated using the CKD-EPI refit equation. ANION GAP 14 10 - 20 mmol/L [facility] Blood 10/09/2024 10:3 7 AM EDT 10/09/2024 10:42 AM EDT us Diana Banks PA-C LAB BLOOD ORDERABLES Final Resu lt [address] [address] * CBC (10/09/2024 10:37 AM EDT) WBC 5.04 4.00 - 11.00 K/uL [facility] RBC 4.03 4.00 - 5.20 M/uL [facility] HGB 12.5 12.0 - 16.0 g/dL [facility] HCT 36.3 36.0 - 46.0 % [facility] PLT 382 150 - 450 K/uL [facility] MCV 90.1 80.0 - 100.0 fL [facility] MCH 31.0 27.0 - 31.0 pg [facility] MCHC 34.4 32.0 - 36.0 g/dL [facility] RDW 12.0 11.5 - 14.5 % [facility] MPV 10.7 8.4 - 12.0 fL [facility] NRBC 0.00 0.00 /100 WBCs [facility] ABSOLUTE NRBC 0.00 0.00 K/uL [facility] Blood 10/09/2024 10:3 7 AM EDT 10/09/2024 10:42 AM EDT us Diana Banks PA-C LAB BLOOD ORDERABLES Final Resu lt [address] [address] * Immunoglobulin A (10/09/2024 10:37 AM EDT) IgA 167 70 - 400 mg/dL [facility] Blood 10/09/2024 10:3 7 AM EDT 10/09/2024 10:42 AM EDT us Diana [employer] LAB BLOOD ORDERABLES Final Resu lt [facility] [address] [place] [address] * Tissue transglutaminase IgA (10/09/2024 10:37 AM EDT) TTG IGA ANTIBODY <1.2 <4.0 (Negative) U/mL [facility] Blood 10/09/2024 10:3 7 AM EDT 10/09/2024 10:41 AM EDT Diana Banks PA-C LAB BLOOD ORDERABLES Final Resu lt Performing Organization Address City/[facility]/ZIP Co de Phone Number [facility] [address] [place] [address] documented in this encounter Visit Diagnoses Diagnosis Constipation, unspecified constipation type- Primary Diverticulitis of large intestine without perforation or abscess without bleeding Diarrhea, unspecified type Constipation, unspecified constipation type Diverticulitis of colon Diverticulitis of colon (without mention of hemorrhage) documented in this encounter Care Teams Aviation Support Equipment Repairer Relationship Specialty Start Date End Date Fanta Sarabia NP [address] [place] [address] [email or web address] PCP - General Nurse Practitioner 07/30/22 documented as of this encounter Additional Source Comments The information contained in this document represents components of the legal health record. It is not the complete legal health record.[facility]
--- OUTSIDE RECORDS SUMMARY | 2024-12-30 10:15 | XMS_ITS | Clinical Summary ---
Author Organization [facility] Address [address] [place], [place] [id number] Phone Care Team Providers Care Brim Pouncing Machine Operator Name Role Phone Fanta Stuart NP Primary Care Provider [phone] Allergies Active Allergy Reactions Criticality Noted Date Comments Amlodipine Rash Low 02/05/2023 Amoxicillin-Pot Clavulanate Diarrhea,Alexx sea and/or Vomiting 07/27/2022 Erythromycin Base Diarrhea,Nausea and/ or Vomiting 07/30/2022 Sulfa (Sulfonamide Antibiotics) Hives,Nausea And Vomiting 11/27/2005 Medications budesonide-formot esteban (SYMBICORT) 80-4.5 mcg/actuation inhaler Inhale 2 puffs into the lungs 2 (two) times a day. Active venlafaxine (EFFEXOR-XR) 150 MG 24 hr capsule Take 300 mg by mouth daily. Active losartan (COZAAR) 100 MG tablet Take 100 mg by mouth daily. Active omeprazole (PRILOSEC) 20 MG capsule Take 20 mg by mouth daily. Active levothyroxine (SYNTHROID, LEVOTHROID) 88 MCG tablet Take 88 mcg by mouth every morning. Active alendronate (FOSAMAX) 70 MG tablet Take 70 mg by mouth every 7 days. Take in the morning with a full glass of water, on an empty stomach, and do not take anything else by mouth or lie down for the next 30 min. Active carvedilol (COREG) 25 MG tablet Take 25 mg by mouth 2 (two) times a day with meals. Active hydroCHLOROthiazi de (HYDRODIURIL) 25 MG tablet Take 25 mg by mouth daily. Active amlodipine besylate (AMLODIPINE ORAL) Take 1 tablet by mouth daily. Active SIMVASTATIN ORAL Take 1 tablet by mouth daily. Active cholecalciferol, vitamin D3, (VITAMIN D3 ORAL) Take 1 capsule by mouth daily. Active clonazePAM (KLONOPIN) 0.5 MG tablet TAKE ONE TABLET BY MOUTH EVERY DAY NEEDED FOR INSOMNIA 5 Active DUPIXENT PEN 300 mg/2 mL subcutaneous pen 5 Active hydroxychloroquin e (PLAQUENIL) 200 mg tablet 5 Active spironolactone (ALDACTONE) 25 MG tablet Take 1 tablet by mouth every morning. 4 Active inhaler spacing device (AEROCHAMBER,GIRMA THERITE) Spcr Inhale 1 each into the lungs every 4 (four) hours as needed (Use with albuterol). 1 each 5 Active albuterol 90 mcg/actuation inhaler Inhale 2 puffs into the lungs every 6 (six) hours as needed for wheezing. 18 g 5 Active Encounters Date Type Department Care Team Description 10/09/2024 10:37 AM EDT - 10/09/2024 11:59 PM EDT Hospital Encounter [facility] [address] [address] Diana Banks PA-C Discharge Disposition: Home or Self Care 10/09/2024 Transcribe Orders [facility] Laboratory [address] [address] Diana Banks PA-C Constipation, unspecified constipation type (Primary Dx); Diverticulitis of large intestine without perforation or abscess without bleeding; Diarrhea, unspecified type from Last 3 Months Social History Tobacco Use Types Packs/Day Years Used Date Smoking Tobacco: Former Cigarettes Smokeless Tobacco: Never Tobacco Cessation:Counseling Given: Not Answered Comments:Smoked in college Alcohol Use Standard Drinks/Week [...] on file Sexual Orientation Not on file Last Filed Vital Signs Vital Sign Reading Time Taken Comments Blood Pressure 106/67 07/08/2024 5:45 PM EDT Pulse 69 07/08/2024 5:45 PM EDT Temperature 36.7 C (98 F) 07/08/2024 5:45 PM EDT Respiratory Rate 20 07/08/2024 5:45 PM EDT Oxygen Saturation 97% 07/08/2024 5:45 PM EDT Inhaled Oxygen Concentration - - Weight 57.2 kg (126 lb) 07/08/2024 5:45 PM EDT Height 162.6 cm (5' 4 ) 07/08/2024 5:45 PM EDT Body Mass Index 21.63 07/08/2024 5:45 PM EDT Plan of Treatment Upcoming Encounters Date Type Department Care Team (Late st Contact Info) Description 01/13/2025 Procedure Pass [facility] Endoscopy Admitting Dept Virtual Department [address] [place] [address] 01/13/2025 12:00 PM EDT Hospital Encounter [facility] Endoscopy Admitting Dept Virtual Department [address] [place] [address] Barrington Martin MD [address] [place] [address] 01/13/2025 12:00 PM EDT - 01/13/2025 12:15 PM EDT Surgery [facility] Endoscopy Admitting Dept Virtual Department [address] [place] [address] Barrington Martin MD [address] [place] [address] COLONOSCOPY Scheduled Procedures Name Priority Associated Diagnoses Date/Ti me COLONOSCOPY Constipation, unspecified constipation type Diverticulitis of colon 01/13/2025 12:00 PM EDT Health Maintenance Due Date Last Done Comments LIPID PANEL 1955 DEPRESSION SCREENING 1966 SMOKING Hx and SMOKELESS TOBACCO SCREENING 10/04/1967 HEPATITIS C SCREENING 1972 MAMMOGRAM 1994 COLOGUARD 10/04/1999 FIT TEST 10/04/1999 FOBT 10/04/1999 SIGMOIDOSCOPY 10/04/1999 VIRTUAL COLONOSCOPY 10/04/1999 RSV VACCINE (1 - Risk 60-74 years 1-dose series) 2014 ZOSTER VACCINES (3 of 3) 04/18/2019 02/21/2019, 09/2016 COVID-19 VACCINE ( season) 2023 03/08/2022, 09/22/2021, 02/03/2021, Additional history exists INFLUENZA VACCINE (#1) 2024 , 02/03/2021, 01/22/2020, Additional history exists CREATININE LEVEL 10/09/2025 10/09/2024, 11/18/2014 POTASSIUM LEVEL 10/09/2025 10/09/2024, 11/18/2014 TSH LEVEL 10/09/2025 10/09/2024 Adult Td,Tdap Booster 09/17/2030 09/17/2020 , 01/19/2015, 09/17/2008 COLONOSCOPY 07/30/2032 07/30/2022 COLORECTAL CANCER SCREENING 07/30/2032 PNEUMOCOCCAL VACCINES (50+ years) Completed 03/21/2021, 12/07/2019, 02/04/2014 OSTEOPOROSIS SCREENING INITIAL (ONE-TIME) Completed 01/10/2022 HEPATITIS A VACCINES Aged Out No long er eligible based on patient's age to complete this topic HIB VACCINES Aged Out No longer eligi ble based on patient's age to complete this topic MENINGOCOCCAL VACCINES (ACWY) Aged Out No longer eligible based on patient's age to complete this topic MENINGOCOCCAL VACCINES (B) Aged Out N o longer eligible based on patient's age to complete this topic Medical Devices Not on file Procedures Procedure Name Priority Date/Time Associated Diagnosis Comments TISSUE TRANSGLUTAMINASE IGA Routine 10/09/2024 10:37 AM EDT Constipation, unspecified constipation type Diverticulitis of large intestine without perforation or abscess without bleeding Diarrhea, unspecified type IMMUNOGLOBULIN A Routine 10/09/2024 10:3 7 AM EDT Constipation, unspecified constipation type Diverticulitis of large intestine without perforation or abscess without bleeding Diarrhea, unspecified type CBC Routine 10/09/2024 10:37 AM EDT Constipation, unspecified constipation type Diverticulitis of large intestine without perforation or abscess without bleeding Diarrhea, unspecified type COMPREHENSIVE METABOLIC PANEL Routine 10/09/2024 10:37 AM EDT Constipation, unspecified constipation type Diverticulitis of large intestine without perforation or abscess without bleeding Diarrhea, unspecified type C-REACTIVE PROTEIN Routine 10/09/2024 10 :37 AM EDT Constipation, unspecified constipation type Diverticulitis of large intestine without perforation or abscess without bleeding Diarrhea, unspecified type TSH Routine 10/09/2024 10:37 AM EDT Constipation, unspecified constipation type Diverticulitis of large intestine without perforation or abscess without bleeding Diarrhea, unspecified type ENDOSCOPY, COLON 07/30/2022 2:18 PM EDT BD DXA AXIAL (SPINE) WITH HIP Routine 01/10/2022 3:21 PM EDT Encounter for screening for osteoporosis from Last 3 Months or Most Recently Relevant to Health Maintenance Results * (ABNORMAL) Comprehensive metabolic panel (10/09/2024 10:37 AM EDT) SODIUM 129(L) 133 - 146 mmol/L [facility] POTASSIUM 4.4 3.3 - 5.1 mmol/L [facility] CHLORIDE 93(L) 96 - 108 mmol/L [facility] CO2 26 21 - 35 mmol/L [facility] BUN 8 6 - 19 mg/dL [facility] CREATININE 0.60 0.5 - 1.5 mg/dL [facility] GLUCOSE 96 70 - 99 mg/dL [facility] ALBUMIN 4.5 3.9 - 4.8 g/dL [facility] TOTAL PROTEIN 7.5 6.5 - 8.0 g/dL [facility] CALCIUM 9.5 8.4 - 10.3 mg/dL [facility] ALKALINE PHOSPHATASE 104 39 - 117 U/L [facility] TOTAL BILIRUBIN 0.5 0.0 - 1.2 mg/dL [facility] AST 22 0 - 37 U/L [facility] ALT 14 0 - 40 U/L [facility] GLOBULIN 3.0 1 - 4.8 g/dL [facility] EGFR 97 >59 mL/min/1.7 3m2 [facility] Comment:Estimated glomerular filtration rate calculated using the CKD-EPI refit equation. ANION GAP 14 10 - 20 mmol/L [facility] Blood 10/09/2024 10:3 7 AM EDT 10/09/2024 10:42 AM EDT us Diana Banks PA-C LAB BLOOD ORDERABLES Final Resu lt Performing Organization Address City/[facility] Co de Phone Number [address] [address] * Tissue transglutaminase IgA (10/09/2024 10:37 AM EDT) TTG IGA ANTIBODY <1.2 <4.0 (Negative) U/mL [facility]PATH [address] Blood 10/09/2024 10:3 7 AM EDT 10/09/2024 10:41 AM EDT Diana Banks PA-C LAB BLOOD ORDERABLES Final [facility] [address] [place] [address] * CBC (10/09/2024 10:37 AM EDT) WBC 5.04 4.00 - 11.00 K/uL [facility] RBC 4.03 4.00 - 5.20 M/uL [facility] HGB 12.5 12.0 - 16.0 g/dL [facility] HCT 36.3 36.0 - 46.0 % [facility] PLT 382 150 - 450 K/uL [facility] MCV 90.1 80.0 - 100.0 fL [facility] MCH 31.0 27.0 - 31.0 pg [facility] MCHC 34.4 32.0 - 36.0 g/dL [facility] RDW 12.0 11.5 - 14.5 % [facility] MPV 10.7 8.4 - 12.0 fL [facility] NRBC 0.00 0.00 /100 WBCs [facility] ABSOLUTE NRBC 0.00 0.00 K/uL [facility] Blood 10/09/2024 10:3 7 AM EDT 10/09/2024 10:42 AM EDT us Diana Banks PA-C LAB BLOOD ORDERABLES Final Resu lt Performing Organization Address [facility] Co de Phone Number [address] [address] * (ABNORMAL) C-Reactive Protein (10/09/2024 10:37 AM EDT) C REACTIVE PROTEIN 18.3(H) 0.0 - 4.0 mg/L [facility] Blood 10/09/2024 10:3 7 AM EDT 10/09/2024 10:42 AM EDT Diana Banks PA-C LAB BLOOD ORDERABLES Final Resu lt [address] [place] [address] * TSH (10/09/2024 10:37 AM EDT) TSH 0.91 0.27 - 4.20 uIU/mL [facility] Blood 10/09/2024 10:3 7 AM EDT 10/09/2024 10:42 AM EDT us Diana Banks PA-C LAB BLOOD ORDERABLES Final Resu lt [address] [address] * Immunoglobulin A (10/09/2024 10:37 AM EDT) IgA 167 70 - 400 mg/dL [facility] Blood 10/09/2024 10:3 7 AM EDT 10/09/2024 10:42 AM EDT us Diana Banks PA-C LAB BLOOD ORDERABLES Final Resu lt Performing Organization Address [facility]/ZIP Co de Phone Number [address] [address] * ENDOSCOPY, COLON (07/30/2022 2:18 PM EDT) Narrative Transcriptions Barrington Martin MD - 07/30/2022 2:18 PM EDT [facility] Patient Name: Estefania Yeager MD:: BARRINGTON MARTIN MD, , Procedure Date: 07/30/2022 2:18 PM Date of : 1955 Age: 66 Admit Type: Outpatient Gender: Female Room: [facility] Referring MD: FANTA STUART Exam Type: Colonoscopy Indications: High risk colon cancer surveillance: Personalhistory of colonic polyps Medications: Monitored Anesthesia Care Procedure: Informed consent was obtained from the patientafter discussion of the indications, limitations, alternatives, benefits, and risks of the procedure. Risks specifically discussed include but are not limited to medication reactions, missed lesions, bleeding, perforation, or the need for emergent surgery. Throughout the procedure, the patient's blood pressure, pulse, end-tidal CO2, and oxygensaturations were monitored continuously. The Olympus pediatric variable colonoscopePCF-[id number] #3 was introduced through the anus and advanced tothe cecum, identified by appendiceal orifice andileocecal valve. The colonoscopy was performed without difficulty. The patient tolerated the procedurewell. The quality of the bowel preparation was excellent. The quality of the bowel preparation was evaluated using the BBPS (Portal Bowel Preparation Scale)with scores of: Right Colon = 3, Transverse Colon = 3and Left Colon = 3 (entire mucosa seen well with no residual staining, small fragments of stool oropaque liquid). The total BBPS score equals 9. Anatomical landmarks were photographed. Complications: No immediate complications. Estimated blood loss: Minimal. Findings: The perianal and digital rectal examinations were normal. A 5 mm polyp was found in the descending colon. The polyp was sessile. The polyp was removed with acold snare. Resection and retrieval were complete. A 3 mm polyp was found in the sigmoid colon. Thepolyp was sessile. The polyp was removed with a coldsnare. Resection and retrieval were complete. Scattered small and large-mouthed diverticula were found in the sigmoid colon. There was narrowing ofthe colon in association with the diverticularopening. Internal hemorrhoids were found duringretroflexion. The hemorrhoids were mild. The exam was otherwise normal throughout theexamined colon. Impression: - One 5 mm polyp in the descending colon, removedwith a cold snare. Resected and retrieved. - One 3 mm polyp in the sigmoid colon, removed witha cold snare. Resected and retrieved. - Moderate diverticulosis in the sigmoid colon.There was narrowing of the colon in association with the diverticular opening. - Internal hemorrhoids. Recommendation: - Discharge patient to home. - Await pathology results. - Repeat colonoscopy in 5 years for surveillance. BARRINGTON MARTIN MD, 07/30/2022 2:42:17 PM This report has been signed electronically. Number of Addenda: 0 Note Initiated On: 07/30/2022 2:18 PM Procedure Code(s): --- Professional --- 47852, Colonoscopy, flexible; with removal of tumor(s), polyp(s), or other lesion(s) by snare technique --- Technical --- 19744, Colonoscopy, flexible; with removal of tumor(s), polyp(s), or other lesion(s) by snare technique Diagnosis Code(s): --- Professional --- Z86.010, Personal history of colonic polyps D12.4, Benign neoplasm of descending colon D12.5, Benign neoplasm of sigmoid colon K64.8, Other hemorrhoids K57.30, Diverticulosis of large intestine without perforation or abscess without bleeding --- Technical --- Z86.010, Personal history of colonic polyps D12.4, Benign neoplasm of descending colon D12.5, Benign neoplasm of sigmoid colon K64.8, Other hemorrhoids K57.30, Diverticulosis of large intestine without perforation or abscess without bleeding CPT copyright 2021 [employer]. All rights reserved. The codes documented in this report are preliminary and upon sprinkling truck driver reviewmay be revised to meet current compliance requirements. Procedure Date: 07/30/2022 2:18:[address] [place] [address] us Fanta Stuart NP GI PROCEDURE ORDERABLES Final Result * BD DXA AXIAL (SPINE) WITH HIP (01/10/2022 3:21 PM EDT) Anatomical Region Laterality Modality Bone Density Bone Density 01/10/2022 3:22 PM EDT Impressions 01/10/2022 3:41 PM EDT 1.Lumbar spine osteoporosis. 2.Normal bilateral hip bone density. Narrative 01/10/2022 3:41 PM EDT COMPARISON: None. BONE DENSITY FINDINGS: History: This is a 66-year-old postmenopausal female. Evaluation of the lumbar spine and hips was performed and felt to be technically adequate. L1-L4 vertebral bodies total bone mineral density was calculated at 0.766 gm/cm2 with a T-score of -2.6 falling within the WHO classification of osteoporosis. Z-score of -0.6. High fracture risk. Right femoral neck bone mineral density was calculated at 0.859 gm/cm2 with a T- score of 0.1 falling within the WHO classification of normal. Z-score of 1.7. Total Right hip bone mineral density was calculated at 0.969 gm/cm2 with a T- score of 0.2 falling within the WHO classification of normal. Z-score of 1.6. Left femoral neck bone mineral density was calculated at 0.764 gm/cm2 with a T- score of -0.8 falling within the WHO classification of normal. Z-score of 0.9. Total Left hip bone mineral density was calculated at 0.905 gm/cm2 with a T- score of -0.3 falling within the WHO classification of normal. Z-score of 1. Procedure Note Suhail Hopper MD - 01/10/2022 COMPARISON: None. BONE DENSITY FINDINGS: History: This is a 66-year-old postmenopausal female. Evaluation of the lumbar spine and hips was performed and felt to betechnically adequate. L1-L4 vertebral bodies total bone mineral density was calculated at 0.766gm/cm2 with a T-score of -2.6 falling within the WHO classification ofosteoporosis. Z-score of -0.6. High fracture risk. Right femoral neck bone mineral density was calculated at 0.859 gm/ab8wtui a T- score of 0.1 falling within the WHO classification of normal.Z-score of 1.7. Total Right hip bone mineral density was calculated at 0.969 gm/cm2 with aT- score of 0.2 falling within the WHO classification of normal. Z-scoreof 1.6. Left femoral neck bone mineral density was calculated at 0.764 gm/cm2 witha T- score of -0.8 falling within the WHO classification of normal.Z-score of 0.9. Total Left hip bone mineral density was calculated at 0.905 gm/cm2 with aT-score of -0.3 falling within the WHO classification of normal. Z-scoreof 1. IMPRESSION: 1.Lumbar spine osteoporosis. 2.Normal bilateral hip bone density. Lisa PIÑA BD BONE DENSITY D EXA Final Result from Last 3 Months or Most Recently Relevant to Health Maintenance Insurance MEDICARE PART A & B [facility] MEDICARE SUPPLEMENT MEDICARE PART A & B [facility] MEDICARE SUPPLEMENT MEDICARE PART A & B [facility] MEDICARE SUPPLEMENT MEDICARE PART A & B MEDICARE SUPPLEMENT MEDICARE PART A & B MEDICARE SUPPLEMENT MEDICARE PART A & B MEDICARE SUPPLEMENT MEDICARE PART A & B MEDICARE SUPPLEMENT MEDICARE PART A & B Member Subscriber Plan / Payer (Ef fective 2019-Present) Name:Estefania Lea Member ID:[id number] Relation to Subscriber:Self Name:Estefania Lea Subscriber ID:[id number] Payer ID:[id number] Group ID:Not on file Type:Medicare Address: [place] [phone] [facility] MEDICARE SUPPLEMENT MEDICARE PART A & B [facility] MEDICARE SUPPLEMENT Care Teams Brim Pouncing Machine Operator Relationship Specialty Start Date End Date Fanta Stuart NP [address] [place] [address] [email or web address] PCP - General Nurse Practitioner 07/30/22 Additional Source Comments The information contained in this document represents components of the legal health record. It is not the complete legal health record.[facility]
--- OUTSIDE RECORDS SUMMARY | 2024-12-30 10:15 | XMS_ITS | Encounter Summary ---
Author Organization [facility] Address [address] [place] [address] Phone Care Team Providers Care Family Preservation Officer Name Role Phone Lisa Sykes MD Primary Care Provide r Fanta Sarabia NP Primary Care Provider [phone] Encounter Details Date Type Department Care Team (Late Contact Info) Description 08/03/2021 Transcribe Orders Virtual Department [address] [place] [phone] Lisa Sykes MD [address] [place] [phone] Encounter for screening for osteoporosis (Primary Dx) Social History Tobacco Use Types Packs/Day Years Used Date Smoking Tobacco: Never Assessed Comments Unknown Sex and Gender Information Value Date Recorded Sex Assigned at Not on file Legal Sex Female 8:27 PM EDT Gender Identity Not on file Sexual Orientation Not on file documented as of this encounter Plan of Treatment Upcoming Encounters Date Type Department Care Team (Late st Contact Info) Description 01/13/2025 Procedure Pass [facility] Endoscopy Admitting Dept Virtual Department [address] [place] [address] 01/13/2025 12:00 PM EDT Hospital Encounter [facility] Endoscopy Admitting Dept Virtual Department [address] [place] [address] Barrington Henderson MD [address] [place] [address] 01/13/2025 12:00 PM EDT - 01/13/2025 12:15 PM EDT Surgery [facility] Endoscopy Admitting Dept Virtual Department [address] [place] [address] Barrington Henderson MD [address] [place] [address] [email or web address] COLONOSCOPY Scheduled Procedures Name Priority Associated Diagnoses Date/Ti me COLONOSCOPY Constipation, unspecified constipation type Diverticulitis of colon 01/13/2025 12:00 PM EDT documented as of this encounter Results * BD DXA AXIAL (SPINE) WITH HIP [...] bone mineral density was calculated at 0.859 gm/xd1rkbf a T- score of 0.1 falling within [...] osteoporosis. 2.Normal bilateral hip bone density. Lisa Sykes MD [facility] BD BONE DENSITY D EXA Final Result documented in this encounter Visit Diagnoses Diagnosis Encounter for screening for osteoporosis- Primary Encounter for screening for osteoporosis Constipation, unspecified constipation type Diverticulitis of colon Diverticulitis of colon (without mention of hemorrhage) documented in this encounter Additional Health Concerns Infection Onset Date Last Indicated Resolved Time CoV-Risk 07/08/2024 07/08/2024 07/19/2024 1:22 AM EDT documented as of this encounter Care Teams Family Preservation Officer Relationship Specialty Start Date End Date Lisa Sykes MD [address] [place] [address] PCP - General Internal Medicine 09/05/21 07/29/22 Fanta Sarabia NP [address] [place] [address] [email or web address] PCP - General Nurse Practitioner 07/30/22 documented as of this encounter Additional Source Comments The information contained in this document represents components of the legal health record. It is not the complete legal health record.[facility]
== END 2024-12-30 09:27 | disposition home or self-care (01) ==
LOC: HO.MAMMO 09:26
PROVIDERS: Visit Provider Student in an Organized Health Care Education/Training Program
DX: M81.0 Age-related osteoporosis without current pathological fracture (principal)
CPT/HCPCS: 77080

== ENCOUNTER 2025-01-18 13:02 | Outpatient (REF) | payer MEDICARE, OTHER, SELFPAY ==
--- OUTSIDE RECORDS SUMMARY | 2025-01-13 12:16 | XMS_ITS | Encounter Summary ---
Author Organization [facility] Address [address] [place], [place] [phone] Phone Care Team Providers Care Lode Miner Blasting Name Role Phone Fanta Sarabia NP Primary Care Provider
[2025-01-18 13:22] LABS: MANUAL DIFF FLAG NO
[2025-01-18 13:28] LABS: Hematocrit 36.7 % (37.0-47.0); Hemoglobin 12.6 g/dl (12.0-16.0); Imm Gran Abs Auto 0.01 X10*3/uL (0.00-0.03); Imm Gran Pct Auto 0.2 % (0.0-0.4); Lymphocytes Absolute Auto 1.3 X10*3/uL (1.2-4.9); Mean Corpuscular HGB Conc 34.3 g/dl (31.0-35.0); Mean Corpuscular Hemoglobin 30.6 pg (27.0-33.0); Mean Corpuscular Volume 89.1 fL (80.0-98.0); NRBC Abs Auto 0.000 X10*3/uL (0.0-0.012); NRBC Pct Auto 0.0 /100WBC (0.0-0.2); Platelet Count 360 X10*3/uL (160-400); Red Blood Count 4.12 X10*6/uL (4.20-5.50); White Blood Count 5.9 X10*3/uL (4.8-10.8)
[2025-01-18 14:28] LABS: Alanine Aminotransferase 17 U/L (0-31); Albumin Level 4.2 g/dL (3.5-5.0); Alkaline Phosphatase 92 U/L (39-117); Anion Gap 11 (12-20); Aspartate Amino Transferase 23 U/L (5-31); Blood Urea Nitrogen 7 mg/dL (9-16); Calcium 9.4 mg/dL (8.4-10.2); Carbon Dioxide 28 mmol/L (22-29); Chloride 99 mmol/L (96-108); Estimated Glomerular Filt Rate > 60; Potassium 4.4 mmol/L (3.3-5.1); Sodium 134 mmol/L (135-145); Total Protein 7.0 g/dL (6.5-8.0)
== END 2025-01-18 13:03 | disposition home or self-care (01) ==
LOC: HO.LAB 13:02
PROVIDERS: Visit Provider Student in an Organized Health Care Education/Training Program
DX: M12.30 Palindromic rheumatism, unspecified site (principal); E55.9 Vitamin D deficiency, unspecified; E78.5 Hyperlipidemia, unspecified
CPT/HCPCS: 36415; 80053; 82306; 85025; 85652

== ENCOUNTER 2025-02-01 10:06 | Outpatient (AMB) | payer OTHER, MEDICARE, SELFPAY ==
[2025-02-01 10:17] VITALS: BP 134/62; PULSE 73; O2SAT 99; BMI 20.3
--- NOTE | 2025-02-01 10:17 | A.OFFVIS_ITS ---
Vital Signs 02/01/25 10:17 Height 5 ft 4.5 in Weight 120 lb 2.431 oz BMI 20.3 BP 134/62 Blood Pressure Location Lt brachial Pulse 73 Pulse Source Pulse Oximeter Pulse Oximetry (%) 99 Oxygen Delivery Method Room Air Intake Visit Reasons: Asthma Intake Note: pt is here for follow up and is getting better from a virus that started by attacking her throat, now mucous cough. 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 Structural Technician: Structural Technician offered & declined Allergies amoxicillin (Augmentin) Allergy (Severe, Verified 02/01/25 10:37) Vomitting clavulanic acid (Augmentin) Allergy (Severe, Verified 02/01/25 10:37) Vomitting Sulfa (Sulfonamide Antibiotics) (SULFA (SULFONAMIDE ANTIBIOTICS)) Allergy (Intermediate, Verified 02/01/25 10:37) HIVES Medication List - Last Reconciled 02/01/25 by Ana Fernández MD albuterol sulfate 90 mcg/actuation 2 puffs inhalation Q6H PRN albuterol sulfate 2.5 mg (3 mL) inhalation Q4-6H PRN 30 days alendronate 70 mg PO QWEEK carvedilol 25 mg PO BID dupilumab (Dupixent) 300 mg subcut Q4W hydroxychloroquine 200 mg PO BID levothyroxine 88 mcg PO DAILY losartan 100 mg PO DAILY omeprazole 20 mg PO DAILY spironolactone 25 mg PO DAILY venlafaxine ER 300 mg PO DAILY Do you need a note to return to daycare/school/sports/work: No HPI HPI Asthma: Details: PARMINDER Cisse IS 69 YEARS OLD, CASE OF CHRONIC BRONCHIAL ASTHMA, SHE IS DOING VERY WELL, ESPECIALLY SINCE ON DUPIXENT INJECTIONS. SHE NEEDS ALBUTEROL INHALER OR ALBUTEROL SOLUTION IN THE NEBULIZER TO USE ONLY ONCE IN A WHILE. DID HAVE RECENT VIRAL INFECTION WHICH HAS RESOLVED. SHE IS VERY HAPPY WITH HER CURRENT REGIMEN. NO ISSUE WITH DUPIXENT INJECTIONS. [facility] Medical History Bronchitis Takotsubo cardiomyopathy Breast cancer, right HTN (hypertension) Asthma COPD (chronic obstructive pulmonary disease) Allergic rhinitis Family History Sister No problems noted. Sister Rheumatoid arthritis Scleroderma Daughter Rheumatoid arthritis Social History Patient Tobacco Use Status: Former Tobacco user Years Smoked: 5 Review of Systems Const All systems reviewed & are unremarkable except as noted in HPI and below Eyes Reports no additional complaints ENT Reports nasal congestion (Only mild intermittent) Card Denies chest pain, Denies irregular heart rhythm and Denies leg edema Resp Reports as per HPI GI Reports heartburn (Sent GERD) Reports no additional complaints Musc Reports no additional complaints Skin/Breast Reports system reviewed and no additional complaints, except as documented Neuro Reports no additional complaints Psych Reports no additional complaints Physical Exam Vital Signs: Last Vital Signs Pulse 73 02/01/25 10:17 BP 134/62 02/01/25 10:17 Pulse Ox 99 02/01/25 10:17 Oxygen Delivery Method Room Air 02/01/25 10:17 BMI result Body Mass Index 20.3 Vital signs reviewed Physical Examination CONSTITUITIONAL Patient alert and cooperative. Well appearing and in no apparent painful distress HEENT Conjunctiva and sclera clear. Pupils equal round and reactive to light. No lymphadenopathy. CHEST/RESPIRATORY SYSTEM Normal respiratory effort and able to speak in complete sentences. coarse breath sounds bilaterally with veins scattered wheezing CARDIAC SYSTEM Regular rate and rhythm. S1 and S2 heard no murmurs. 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 No deformities noted. No synovitis noted to the MCPs, PIPs or DIPs. No tenderness to palpation of these joints. Wrists: Full range of motion at the wrists without pain. No tenderness to palpation or synovitis noted to the wrists. Elbows: Full range of motion without pain. No tenderness, weakness, swelling, increased warmth or erythema. Shoulders: Full range of motion without pain. No tenderness, weakness, swelling, increased warmth or erythema. Hips: Full range of motion without pain. Hip bursa: No tenderness to palpation Knees: Full range of motion. No tenderness, swelling, increased warmth or erythema.?No effusion or crepitations Ankles: Full range of motion. No tenderness, swelling, increased warmth or erythema.? Feet: Negative squeeze test. No tenderness to palpation or swelling of the MTPs. Tender points:?No tenderness to palpation of the bilateral trapezius, supraspinatus, greater trochanters, anterior costochondral junctions, bilateral gluteal areas, bilateral suboccipital muscle insertions SKIN Skin intact without rashes. Const General: healthy appearing and comfortable Orientation/consciousness: patient oriented x3 HEENT Head: Yes normal to inspection General nose exam: No nasal polyps present and No nasal discharge present Face and sinus: Yes sinuses nontender Mouth: oropharynx normal Throat: Yes posterior oropharynx normal Eyes General: appearance normal, both eyes and all related structures Neck Neck: Yes normal visual inspection, Yes no lymphadenopathy, Yes trachea midline and Yes no JVD Thyroid: Thyroid normal Chest Chest palpation & inspection: normal inspection of the chest, normal palpation of entire chest wall and no tenderness Resp Other: Percussion note resonant, has good and equal breath sounds on both sides. No crepitations, wheezes or rhonchi are heard . Cardio Palpation: normal PMI Rate: regular rate Rhythm: regular rhythm Heart sounds: no gallops and no murmurs Peripheral pulses: Peripheral pulses 2+ throughout GI Palpation (GI): Soft to palpation, nontender, No hepatosplenomegaly present and no masses Auscultation: normal bowel sounds Back/Spine/Pelvis Thoracic/Lumbar Spine: thoracic and lumbar spine normal to inspection Skin General skin exam: no rashes or lesions noted Neuro General: patient oriented x3 and no focal motor deficits Cranial nerves: Yes CN's II-XII intact bilaterally Extrem General: Yes normal to inspection, Yes no clubbing, cyanosis or edema and Yes no calf tenderness Psych Appearance: grossly normal and well kempt Speech and movement: Normal speech and movement present Assessment & Plan Assessment & Plan (1) COPD (chronic obstructive pulmonary disease): Comment: PATIENT DOES HAVE MILD TO MODERATE DEGREE OF CHRONIC OBSTRUCTIVE AIRWAY DISORDER/ ASTHMA, It is well controlled with the use of Dupixent injection. Code(s): J44.9 - Chronic obstructive pulmonary disease, unspecified Category: Medical Plan: Continue Dupixent 300 mg subQ q.2 weeks. Albuterol HFA 2 puffs Q 6 hours p.r.n./ albuterol solution in the nebulizer Q 6 hours p.r.n. (2) Asthma: Comment: MILD INTERMITTENT , WELL CONTROLLED. Code(s): J45.909 - Unspecified asthma, uncomplicated Category: Medical Plan: As under COPD (3) Allergic rhinitis: Comment: Very Well Controlled AT THIS TIME. Does not need any active treatment. Code(s): J30.9 - Allergic rhinitis, unspecified Category: Medical Plan: As above Coding Level of Care Code Est Pt Level 3 (84175) Diagnoses COPD (chronic obstructive pulmonary disease) J44.9 Asthma J45.909 Allergic rhinitis J30.9
== END 2025-02-01 10:44 | disposition home or self-care (01) ==
LOC: HO.HPS 10:06
PROVIDERS: PCP Nurse Practitioner; Visit Provider Internal Medicine
DX: J44.9 Chronic obstructive pulmonary disease, unspecified (principal); J45.909 Unspecified asthma, uncomplicated; J30.9 Allergic rhinitis, unspecified
CPT/HCPCS: 99213